=== PATIENT | female | born 1975 | race Two or more races ===

== ENCOUNTER 2020-10-20 15:02 | Emergency (ER) | payer MEDICAID, SELFPAY ==
--- NOTE | ~2020-10-20 | XR_ITS ---
EXAMINATION: XR CHEST CLINICAL INFORMATION: Chest pain COMPARISON: Previous chest x-ray March 2015 TECHNIQUE: Frontal view of the chest was obtained. FINDINGS: The cardiac and mediastinal contours are normal. There is a small 4 mm nodule in the right upper lobe that is stable The lungs are otherwise clear. There is no pleural effusion or pneumothorax. Bony structures are unremarkable. XR/XR chest 1V IMPRESSION: No evidence for acute disease in the chest.
[2020-10-20 15:13] VITALS: BP 126/78; PULSE 94; RESP 16; TEMP 36.5; O2SAT 100; BMI 25.7
--- NOTE | 2020-10-20 15:17 | ECG_ITS ---
Test Reason : CHEST PAIN Blood Pressure : / mmHG Vent. Rate : 097 BPM Atrial Rate : 097 BPM P-R Int : 136 ms QRS Dur : 074 ms QT Int : 368 ms P-R-T Axes : -01 023 063 degrees QTc Int : 467 ms Normal sinus rhythm Normal ECG When compared with ECG of 15-AUG-2018 10:51, No significant change was found Referred By: Generic ED Physician Electronically Signed By:Osmin Napoles
[2020-10-20 17:02] LABS: MANUAL DIFF FLAG NO
[2020-10-20 17:06] LABS: Basophils Percent Auto 0.4 % (0-2); Eosinophils Absolute Auto 0.3 X10*3/uL (0.0-0.4); Eosinophils Percent Auto 2.3 % (0-4); Hematocrit 34.7 % (37-47); Hemoglobin 11.2 g/dl (12.0-16.0); Imm Gran Abs Auto 0.05 X10*3/uL (0.00-0.03); Imm Gran Pct Auto 0.4 % (0.0-0.4); Lymphocytes Absolute Auto 3.3 X10*3/uL (1.2-4.9); Lymphocytes Percent Auto 29.5 % (20-40); Mean Corpuscular HGB Conc 32.3 g/dl (31.0-35.0); Mean Corpuscular Hemoglobin 26.4 pg (27.0-33.0); Mean Corpuscular Volume 81.6 fL (80-98); Monocytes Absolute Auto 0.7 X10*3/uL (0.1-1.2); Monocytes Percent Auto 5.8 % (2-11); Neutrophils Absolute Auto 6.9 X10*3/uL (2.0-8.3); Neutrophils Percent Auto 61.6 % (45-73); Platelet Count 406 X10*3/uL (160-400); Red Blood Count 4.25 X10*6/uL (4.20-5.50); Red Cell Distribution Width 12.8 % (11.0-16.0); White Blood Count 11.2 X10*3/uL (4.8-10.8)
[2020-10-20 17:36] LABS: Anion Gap 16 (12-20); Blood Urea Nitrogen 41 mg/dL (9-16); Calcium 10.5 mg/dL (8.4-10.2); Carbon Dioxide 25 mmol/L (22-29); Chloride 105 mmol/L (96-108); Estimated Glomerular Filt Rate > 60; Glucose Random 229 mg/dL (60-115); Potassium 5.6 mmol/L (3.3-5.1); Sodium 140 mmol/L (135-145)
[2020-10-20 17:38] LABS: Troponin-I High Sensitivity < 3.5 ng/L (<3.5-17.0)
--- NOTE | 2020-10-20 18:28 | ED.CHESTPAIN ---
HPI - Chest Pain General Chief Complaint: Chest Pain Stated Complaint: Chest Pain/Palpitations Time Seen by Provider: 10/20/20 18:11 Source: patient Mode of arrival: ambulatory Limitations: no limitations History of Present Illness HPI narrative: Patient presents to the ED for chest palpitations since last night. Patient states at times heart is beating fast and other times she feels her heart is beating off beat. Patient Denies chest pain. Denies any swelling of lower extremities, calf pain, coughing up blood, chest pain on inspiration, fever, or chills. Patient states vaccinated with COVID. Related Data Allergies Allergy/AdvReac Type Severity Reaction Status Date / Time No Known Allergies Allergy Mild NONE Verified 10/20/20 15:13 Review of Systems Review of Systems: Yes all other systems are reviewed and are negative Constitutional: Constitutional: Reports as per HPI and Reports no additional constitutional complaints Eyes: Eyes: Reports as per HPI and Reports no additional eye complaints ENT: Reports system reviewed and no additional complaints, except as documented and Reports as per HPI Cardiovascular: Cardiovascular: Reports as per HPI and Reports no additional cardiovascular complaints Comments: Palpitation Respiratory: Respiratory: Reports as per HPI and Reports no additional respiratory complaints Gastrointestinal: Gastrointestinal: Reports as per HPI and Reports no additional gastrointestinal complaints Genitourinary: Genitourinary: Reports no additional female genitourinary complaints and Reports as per HPI Musculoskeletal: Musculoskeletal: Reports no additional musculoskeletal complaints and Reports as per HPI Integumentary/Breasts: Skin/Breast: Reports system reviewed and no additional complaints, except as docu and Reports as per HPI Psychiatric: Psychiatric: Reports no additional psychiatric complaints and Reports as per HPI [facility] Past Medical History Medical History (Updated 10/21/20 @ 00:01 by Diane Landa) 23-polyvalent pneumococcal polysaccharide vaccine indication of diabetes in patient 6 to 64 years of age Asthma Social History Social History Advance Directives: No Advance Directives Information Provided: Yes Patient : No Physical Exam Vital Signs: Vital Signs: Last Vital Signs Temp 98.3 F 10/20/20 20:08 Pulse 93 10/20/20 20:08 Resp 13 10/20/20 20:08 BP 108/68 10/20/20 20:08 Pulse Ox 100 10/20/20 20:08 Body Mass Index 25.7 Const: General: cooperative, healthy appearing, comfortable, no acute distress, well developed, alert and awake Orientation/consciousness: patient oriented x3 HENMT: Head: Yes normal to inspection, Yes No palpable skull fracture present, Yes normocephalic, Yes atraumatic and No abrasion Eyes: General: appearance normal, both eyes and all related structures Neck: Neck: Yes normal visual inspection, Yes full ROM, Yes no lymphadenopathy, Yes no meningeal signs, Yes trachea midline, Yes supple and No tender Chest: Chest palpation & inspection: normal inspection of the chest and normal palpation of entire chest wall Resp: Effort & Inspection: normal respiratory effort and able to speak in complete sentences Cardio: Jugular venous distension: no JVD Heart sounds: S1 normal heart sound present and S2 normal heart sound present GI: Inspection: Yes normal to inspection and No abdominal wall ecchymosis Palpation (GI): Soft to palpation, not firm, nontender, no guarding and not rigid : General: No CVA tenderness and Yes no CVA tenderness Back/Spine/Pelvis: Back: no CVA tenderness, No CVA tenderness and No back tenderness Skin: General skin exam: no rashes or lesions noted Neuro: General: patient oriented x3, gait normal, no meningeal signs and CN's II-XI intact bilaterally Cranial nerves: Yes CN's II-XII intact bilaterally Extrem: Other: Lower extremities negative for swelling, pitting edema, or calf tenderness General: Yes normal to inspection and Yes full ROM Course Course Course Narrative: Patient have medical evaluation. Including EKG Reevaluation(s) Reevaluation #1: EKG negative for STEMI. D-dimer came back negative. Perc score 0. Chest x-ray negative for pneumonia. Patient's COVID swab is negative. Troponin negative after 1 day palpitation. Thyroid levels are normal. Patient sleeping comfortably in bed. Patient informed to follow-up with PCP. Potassium 5.6 most likely lab error kidney functions normal, but will give Kayexalate. Patient will follow-up with the PCP. Time: 22:00 MDM - Chest Pain Lab Data Result diagrams: 10/20/20 16:56 10/20/20 16:56 Labs: Lab Results 10/20/20 10/20/20 10/20/20 Range/Units 16:56 16:56 16:56 WBC 11.2 H (4.8-10.8) X10*3/uL RBC 4.25 (4.20-5.50) X10*6/uL Hgb 11.2 L (12.0-16.0) g/dl Hct 34.7 L (37-47) % MCV 81.6 (80-98) fL MCH 26.4 L (27.0-33.0) pg MCHC 32.3 (31.0-35.0) g/dl RDW 12.8 (11.0-16.0) % Plt Count 406 H (160-400) X10*3/uL MPV 10.0 (9.4-12.3) fL Immature Gran % (Auto) 0.4 (0.0-0.4) % Neut % (Auto) 61.6 (45-73) % Lymph % (Auto) 29.5 (20-40) % [place] % (Auto) 5.8 (2-11) % Eos % (Auto) 2.3 (0-4) % Baso % (Auto) 0.4 (0-2) % Lymph # (Auto) 3.3 (1.2-4.9) X10*3/uL [place] # (Auto) 0.7 (0.1-1.2) X10*3/uL Eos # (Auto) 0.3 (0.0-0.4) X10*3/uL Baso # (Auto) 0.0 (0.0-0.2) X10*3/uL Abs Immat Gran (auto) 0.05 H (0.00-0.03) X10*3/uL Absolute Neuts (auto) 6.9 (2.0-8.3) X10*3/uL Absolute Nucleated RBC 0.000 (0.0-0.012) X10*3/uL Nucleated RBC % (auto) 0.0 (0.0-0.2) /100WBC PT (9.9-13.0) SEC INR (0.9-1.1) APTT (24.1-38.0) SEC D-Dimer NG/ML Sodium 140 (135-145) mmol/L Potassium 5.6 H (3.3-5.1) mmol/L Chloride 105 (96-108) mmol/L Carbon Dioxide 25 (22-29) mmol/L Anion Gap 16 (12-20) BUN 41 H (9-16) mg/dL Creatinine 0.99 (0.5-1.4) mg/dL Estim Creat Clear Calc 68.0 Estimated GFR > 60 Random Glucose 229 H (60-115) mg/dL Calcium 10.5 H (8.4-10.2) mg/dL Troponin I High Sens < 3.5 (<3.5-17.0) ng/L TSH 0.85 (0.32-4.0) uIU/mL COVID-19 (DOV) (Negative) COVID-19 Clin Com 10/20/20 10/20/20 Range/Units 18:29 18:29 WBC (4.8-10.8) X10*3/uL RBC (4.20-5.50) X10*6/uL Hgb (12.0-16.0) g/dl Hct (37-47) % MCV (80-98) fL MCH (27.0-33.0) pg MCHC (31.0-35.0) g/dl RDW (11.0-16.0) % Plt Count (160-400) X10*3/uL MPV (9.4-12.3) fL Immature Gran % (Auto) (0.0-0.4) % Neut % (Auto) (45-73) % Lymph % (Auto) (20-40) % [place] % (Auto) (2-11) % Eos % (Auto) (0-4) % Baso % (Auto) (0-2) % Lymph # (Auto) (1.2-4.9) X10*3/uL [place] # (Auto) (0.1-1.2) X10*3/uL Eos # (Auto) (0.0-0.4) X10*3/uL Baso # (Auto) (0.0-0.2) X10*3/uL Abs Immat Gran (auto) (0.00-0.03) X10*3/uL Absolute Neuts (auto) (2.0-8.3) X10*3/uL Absolute Nucleated RBC (0.0-0.012) X10*3/uL Nucleated RBC % (auto) (0.0-0.2) /100WBC PT 10.9 (9.9-13.0) SEC INR 1.0 (0.9-1.1) APTT 39.9 H (24.1-38.0) SEC D-Dimer < 200 NG/ML Sodium (135-145) mmol/L Potassium (3.3-5.1) mmol/L Chloride (96-108) mmol/L Carbon Dioxide (22-29) mmol/L Anion Gap (12-20) BUN (9-16) mg/dL Creatinine (0.5-1.4) mg/dL Estim Creat Clear Calc Estimated GFR Random Glucose (60-115) mg/dL Calcium (8.4-10.2) mg/dL Troponin I High Sens (<3.5-17.0) ng/L TSH (0.32-4.0) uIU/mL COVID-19 (DOV) Negative (Negative) COVID-19 Clin Com See Note ECG Data ECG #1: Interpretation: Normal sinus rhythm. Ventricular rate 97. Pr interval 136. QRS 74. QTC 467. Negative STEMI Discharge Plan Discharge Clinical Impression: Palpitations Patient Disposition: Home, Self-Care Instructions: Heart Palpitations (ED) Additional Instructions: New EKG and blood work came back negative for heart attack. Your COVID swab came back negative. Her D-dimer came back negative for risk of blood clot. Your thyroid level came back normal. Please follow-up with your PCP. Her blood count was normal Referrals: [facility] [Primary Care Provider] - 2 days (Palpitations) Stand Alone Forms: Work/School Release Interventions: ED Discharge Assessment Last Done: 10/20/20 23:25 Discharge Date/Time: 10/20/20 23:44 Print Language: Persian
[2020-10-20 18:43] LABS: Prothrombin Time 10.9 SEC (9.9-13.0)
[2020-10-20 18:46] LABS: Partial Thromboplastin Time 39.9 SEC (24.1-38.0)
[2020-10-20 18:55] LABS: COVID-19 Test Negative (Negative); IDNOW Serial# 9DD0AD1C
[2020-10-20 18:58] LABS: TSH reflex Free T4 0.85 uIU/mL (0.32-4.0)
[2020-10-20 19:16] LABS: D Dimer < 200 NG/ML
[2020-10-20 20:08] VITALS: BP 108/68; PULSE 93; RESP 13; TEMP 36.8; O2SAT 100
[2020-10-20] MEDS: Sodium Polystyrene Sulfon/Sorb 15 GM/60 ML ORAL.SUSP 30 GM PO (23:15)
== END 2020-10-20 23:44 | disposition home or self-care (01) ==
PROVIDERS: Physician Assistant; Emergency Provider Emergency Medicine Emergency Medical Services
DX: R00.2 Palpitations (principal); Z20.822 Contact with and (suspected) exposure to COVID-19; J45.909 Unspecified asthma, uncomplicated
CPT/HCPCS: 36415; 71045; 80048; 84443; 84484; 85025; 85379; 85610; 85730; 87635; 93005; 99284; 99285

== ENCOUNTER 2021-08-07 21:37 | Inpatient (IN) | payer MEDICAID, SELFPAY ==
--- NOTE | ~2021-08-07 | CT_ITS ---
EXAMINATION: CT ABDOMEN AND PELVIS WITHOUT CONTRAST CLINICAL INFORMATION: Pyelonephritis/CVA tenderness COMPARISON: Renal ultrasound 08/08/[address] abdomen pelvis 01/10/2019 TECHNIQUE: Multidetector volumetric imaging was performed from the superior aspect of the liver through the pubic symphysis. Sagittal and coronal reformatted images were obtained on the technologist's workstation. This CT examination was performed using dose optimization techniques as appropriate, variously including the following: *Automated exposure control *Adjustment of mA and/or kV according to patient size (this includes techniques or standardized protocols for targeted exams where dose is matched to indication/reason for exam; i.e. extremities or head) *Use of iterative reconstruction technique DLP: 460 mGy-cm FINDINGS: LUNG BASES: Bilateral groundglass opacities are seen at the lung bases along with small bilateral pleural effusions. These are completely new findings when compared to the 01/10/2019 study LIVER, GALLBLADDER, AND BILIARY TREE: The liver is normal in size, shape, and attenuation. No focal hepatic lesion or biliary ductal dilatation is present. The gallbladder is unremarkable with no evidence of radiopaque gallstones, gallbladder wall thickening, or obvious pericholecystic inflammatory changes. PANCREAS: Unremarkable. SPLEEN: Unremarkable. A punctate splenic calcified granuloma is present. ADRENAL GLANDS: Unremarkable. KIDNEYS AND URETERS: Evaluation of the kidneys is limited without IV contrast. Especially, when looking for signs of pyelonephritis which may be a striated nephrogram as no nephrograms are appreciated on this study without contrast. The kidneys, however, are normal in size, shape, and attenuation. Both kidneys, however are slightly smaller than in 2009. For example, on sagittal imaging the left kidney measured 11.6 cm and currently measures 10.3 cm. The right kidney previously measured 13.5 cm in length and on the current study measures 12.9 cm. There is nonspecific stranding is present around both kidneys which is new when compared to the prior study. There is some minimal fullness of the collecting system on the left similar to prior. No gross hydronephrosis or hydroureter. In the right kidney there are 4 subtle punctate hyperattenuating foci which could conceivably represent calculi. BLADDER: Distended with a slightly thickened wall. GASTROINTESTINAL TRACT: The small and large bowel are unremarkable. The appendix is not identified with certainty but there is no evidence of appendicitis. ABDOMINAL WALL: No significant hernia is appreciated. LYMPH NODES: There are enlarged retroperitoneal lymph nodes present, significantly increased in size since the prior study, for example, a left para-aortic node measures 1.7 x 1.7 x 2.9 cm where as previously this measured 0.8 x 0.6 x 1.0 cm. Other retroperitoneal lymph nodes have behaved in a similar manner. VASCULAR: Unremarkable. PELVIC VISCERA: Unremarkable. OSSEOUS STRUCTURES: Unremarkable. CT/CT abdomen pelvis wo con IMPRESSION: Suboptimal evaluation of the kidneys secondary to lack of IV contrast. There is perirenal stranding present bilaterally. Both kidneys are slightly smaller when compared to the 2019 study. Mild fullness in the right collecting system along with the above-mentioned findings could be secondary to pyelonephritis in the correct clinical setting. The vague punctate densities seen in the right kidney are of uncertain significance. Increasing size of retroperitoneal lymph nodes may be reactive, but they should be followed after treatment. If another CT scan is going to be performed, I would recommend this with IV contrast. This critical result was discussed with Dr. Buchanan at 4:00 PM on the day of the exam and it was ascertained that the content and urgency of the report was understood at the time of direct communication. Fleischner guidelines were followed.
--- NOTE | ~2021-08-07 | US_ITS ---
EXAMINATION: US RETROPERITONEAL LIMITED (RENAL ONLY) CLINICAL INFORMATION: RENEE, question pyelonephritis. COMPARISON: CT abdomen and pelvis 01/10/2019. TECHNIQUE: Retroperitoneal ultrasound imaging was performed. FINDINGS: RIGHT KIDNEY: 13.3 x 6.0 x 5.9 cm (SAG x AP x TRV). The kidney is normal in size, contour, and echogenicity. Renal cortical thickness is normal. No renal calculi or focal parenchymal lesions. There is echogenic debris within the dilated right kidney pelvis. LEFT KIDNEY: 10.2 x 5.4 x 5.6 cm cm (SAG x AP x TRV). The kidney is normal in size, contour, and echogenicity. Renal cortical thickness is normal. There are multiple echogenic foci without shadowing. No definite echogenic shadowing stones or hydronephrosis seen. US/US renal BI IMPRESSION: Mild right hydronephrosis with echogenic debris within raises the possibility of pyelonephritis. No echogenic stones seen in either kidney. Few echogenic foci seen in the left kidney.
[2021-08-07 21:47] VITALS: BP 102/84; PULSE 111; O2SAT 98; BMI 25.7
[2021-08-07 21:54] VITALS: BP 87/53; PULSE 104; RESP 16; TEMP 37.4; O2SAT 99
--- NOTE | 2021-08-07 22:02 | ED.GENADULT ---
HPI - General Adult General Chief complaint: Abdominal Pain Stated complaint: stomach pain Time Seen by Provider: 08/07/21 21:51 Source: patient Mode of arrival: ambulatory Limitations: no limitations History of Present Illness HPI narrative: Patient comes to the emergency room complaining of weakness, diffuse abdominal pain, nausea vomiting, hyperglycemia. Patient states that she has been vomiting quite a bit over the last 2 days. Patient tries to drink fluids but she vomits immediately. Patient feeling nauseous all the time, 1 episode of diarrhea. Patient denies fever, burning of chills, diffuse body aches. Patient states that because she has been vomiting so much, she has not been checking her sugars are with giving herself insulin Related Data Allergies Allergy/AdvReac Type Severity Reaction Status Date / Time No Known Allergies Allergy Mild NONE Verified 10/20/20 15:13 Review of Systems Review of Systems: Constitutional : No Weight loss, No Fever, No Chills, complaining of fatigue and generalized malaise, chills and body aches ENT/Mouth : No Hearing loss, No Ear Pain, No Nasal Congestion, No Sinus Pain, No Hoarseness, No sore throat, No Rhinorrhea, No Swallowing Difficulty Eyes: No Eye Pain, No Swelling, No Redness, No Foreign Body, No Discharge, No Vision Changes Cardiovascular : No Chest Pain, No SOB, No Dyspnea on Exertion, No Orthopnea, No Edema, No Palpitations Respiratory : No Cough, No Sputum, No Wheezing, No Smoke Exposure, No Dyspnea Gastrointestinal : Complaining of nausea, copious vomiting, 1 episode of diarrhea, No Constipation, No abdominal Pain, No Hematochezia, No Melena Genitourinary : no irregular bleeding, No Dysuria, No Urinary Frequency, No Hematuria, No Urinary Incontinence, No Urgency, No Flank Pain, No Urinary Flow Changes, No Hesitancy Musculoskeletal : No joint pain, complaining of diffuse Myalgias, No Joint Swelling Skin : No Skin Lesions, No rash Neuro : No Weakness, No Numbness, No Paresthesias, No Loss of Consciousness, No Dizziness, No Headache Psych : No Anxiety/Panic, No Depression, No SI/HI/AH/VH, No Social Issues, Heme/Lymph: No Bruising, No Bleeding,No Lymphadenopathy Endocrine : No Polyuria, No Polydipsia, No Temperature Intolerance PMFSH Past Medical History Medical History 23-polyvalent pneumococcal polysaccharide vaccine indication of diabetes in patient 6 to 64 years of age Asthma Social History Social History Smoked in Last 30 Days: No Use of substances other than those prescribed or required for medical reasons: No Advance Directives: No Advance Directives Information Provided: Yes Patient : No Physical Exam ED Vital Signs: Vital Signs - 24 hr 08/07/21 21:54 08/07/21 22:27 08/07/21 23:03 Temperature 99.3 F 99 F 98.7 F Pulse Rate 104 H 100 Respiratory Rate 16 12 Blood Pressure 87/53 L 103/61 Pulse Oximetry 99 08/07/21 23:11 Temperature 98.8 F Pulse Rate 100 Respiratory Rate 16 Blood Pressure 161/81 H Pulse Oximetry 100 BMI result Body Mass Index 25.7 Const Other: Appearance: Alert. Oriented X3. No acute distress. Weak appearing Eyes: Pupils equal, round and reactive to light. ENT: Pharynx normal. Neck: Normal inspection. Neck supple. No lymph nodes noted. No crepitus CVS: Normal heart rate and rhythm. Pulses normal. Normal S1 and S2 Respiratory: No respiratory distress. Breath sounds normal. No Wheezing. No rales Abdomen: Soft mild pain diffusely, No rigidity. No distention. Back: Positive CVA tenderness bilaterally. Patient did have pain in back middle back and lower back as well Skin: Skin warm and dry. Normal skin color. Normal skin turgor. Extremities: No lower extremity edema. No Lacerations. No Rash Neuro: Oriented X 3. No motor deficit. No sensory deficit. Moving all extremities. No slurred speech. CN 2 through 12 grossly intact Psych: calm, cooperative, normal affect Course Course Course Narrative: Patient was given IV fluids, levofloxacin, patient being admitted for UTI sepsis/pyelonephritis. Patient's blood pressure improved with 2 L of IV fluids. Now, blood pressure is 109/69. I discussed the patient Dr. Chan, patient likely has pyelonephritis, hyperglycemia. Corrected sodium is 133 Medical Decision Making Lab Data Result diagrams: 08/07/21 22:00 08/07/21 22:00 Labs: Lab Results 08/07/21 08/07/21 08/07/21 Range/Units 22:00 22:00 22:00 WBC 18.9 H (4.8-10.8) X10*3/uL RBC 3.98 L (4.20-5.50) X10*6/uL Hgb 9.9 L (12.0-16.0) g/dl Hct 30.5 L (37.0-47.0) % MCV 76.6 L (80.0-98.0) fL MCH 24.9 L (27.0-33.0) pg MCHC 32.5 (31.0-35.0) g/dl RDW 13.0 (11.0-16.0) % Plt Count 322 (160-400) X10*3/uL MPV 10.4 (9.4-12.3) fL Immature Gran % (Auto) 1.2 H (0.0-0.4) % Neut % (Auto) 78.1 H (45-73) % Lymph % (Auto) 8.7 L (20-40) % [place] % (Auto) 11.3 H (2-11) % Eos % (Auto) 0.5 (0-4) % Baso % (Auto) 0.2 (0-2) % Lymph # (Auto) 1.6 (1.2-4.9) X10*3/uL [place] # (Auto) 2.1 H (0.1-1.2) X10*3/uL Eos # (Auto) 0.1 (0.0-0.4) X10*3/uL Baso # (Auto) 0.0 (0.0-0.2) X10*3/uL Abs Immat Gran (auto) 0.23 H (0.00-0.03) X10*3/uL Absolute Neuts (auto) 14.7 H (2.0-8.3) x10*3/uL Absolute Nucleated RBC 0.000 (0.0-0.012) X10*3/uL Nucleated RBC % (auto) 0.0 (0.0-0.2) /100WBC Smear Tech's Comments VERIFIED Sodium 127 L (135-145) mmol/L Potassium 5.0 (3.3-5.1) mmol/L Chloride 92 L (96-108) mmol/L Carbon Dioxide 17 L (22-29) mmol/L Anion Gap 23 H (12-20) BUN 36 H (9-16) mg/dL Creatinine 1.96 H (0.5-1.4) mg/dL Estim Creat Clear Calc 33.9 Estimated GFR 27 POC Glucose (60-115) mg/dL Random Glucose 457 H* (60-115) mg/dL Calcium 8.9 D (8.4-10.2) mg/dL Total Bilirubin 0.5 (0.0-1.0) mg/dL AST 32 H (5-31) U/L ALT 13 (0-31) U/L Alkaline Phosphatase 123 H (39-117) U/L Total Protein 7.7 (6.5-8.0) g/dL Albumin 3.4 L (3.5-5.0) g/dL Lipase 12 (8-78) U/L Urine Color Urine Appearance Urine pH (5.0-8.0) Ur Specific [place] (1.005-1.025) Urine Protein (NEG-TRACE) MG/DL Urine Glucose (UA) (NEG) MG/DL Urine Ketones (NEG) MG/DL Urine Blood (NEG) Urine Nitrite (NEG) Ur Leukocyte Esterase (NEG) Urine RBC (0) /HPF Urine WBC (0-4) /HPF Ur Squamous Epith Cells /LPF Urine Bacteria /LPF Granular Casts /LPF Urine Mucus /LPF COVID-19 (DOV) (Negative) COVID-19 Clin Com Influenza Type A (SUJIT) Negative (Negative) Influenza Type B (SUJIT) Negative (Negative) Influenza A & B Note See Note 08/07/21 08/07/21 08/07/21 Range/Units 22:00 22:09 22:56 WBC (4.8-10.8) X10*3/uL RBC (4.20-5.50) X10*6/uL Hgb (12.0-16.0) g/dl Hct (37.0-47.0) % MCV (80.0-98.0) fL MCH (27.0-33.0) pg MCHC (31.0-35.0) g/dl RDW (11.0-16.0) % Plt Count (160-400) X10*3/uL MPV (9.4-12.3) fL Immature Gran % (Auto) (0.0-0.4) % Neut % (Auto) (45-73) % Lymph % (Auto) (20-40) % [place] % (Auto) (2-11) % Eos % (Auto) (0-4) % Baso % (Auto) (0-2) % Lymph # (Auto) (1.2-4.9) X10*3/uL [place] # (Auto) (0.1-1.2) X10*3/uL Eos # (Auto) (0.0-0.4) X10*3/uL Baso # (Auto) (0.0-0.2) X10*3/uL Abs Immat Gran (auto) (0.00-0.03) X10*3/uL Absolute Neuts (auto) (2.0-8.3) x10*3/uL Absolute Nucleated RBC (0.0-0.012) X10*3/uL Nucleated RBC % (auto) (0.0-0.2) /100WBC Smear Tech's Comments Sodium (135-145) mmol/L Potassium (3.3-5.1) mmol/L Chloride (96-108) mmol/L Carbon Dioxide (22-29) mmol/L Anion Gap (12-20) BUN (9-16) mg/dL Creatinine (0.5-1.4) mg/dL Estim Creat Clear Calc Estimated GFR POC Glucose 414 H* (60-115) mg/dL Random Glucose (60-115) mg/dL Calcium (8.4-10.2) mg/dL Total Bilirubin (0.0-1.0) mg/dL AST (5-31) U/L ALT (0-31) U/L Alkaline Phosphatase (39-117) U/L Total Protein (6.5-8.0) g/dL Albumin (3.5-5.0) g/dL Lipase (8-78) U/L Urine Color YELLOW Urine Appearance CLOUDY Urine pH 6.0 (5.0-8.0) Ur Specific [place] 1.025 (1.005-1.025) Urine Protein 2+ H (NEG-TRACE) MG/DL Urine Glucose (UA) >=1000 H (NEG) MG/DL Urine Ketones 40 (NEG) MG/DL Urine Blood 3+ H (NEG) Urine Nitrite NEG (NEG) Ur Leukocyte Esterase 1+ H (NEG) Urine RBC 5-9 H (0) /HPF Urine WBC 30-49 H (0-4) /HPF Ur Squamous Epith Cells 1+ /LPF Urine Bacteria 4+ /LPF Granular Casts 5-9 /LPF Urine Mucus 2+ /LPF COVID-19 (DOV) Negative (Negative) COVID-19 Clin Com See Note Influenza Type A (SUJIT) (Negative) Influenza Type B (SUJIT) (Negative) Influenza A & B Note 08/07/21 Range/Units 22:59 WBC (4.8-10.8) X10*3/uL RBC (4.20-5.50) X10*6/uL Hgb (12.0-16.0) g/dl Hct (37.0-47.0) % MCV (80.0-98.0) fL MCH (27.0-33.0) pg MCHC (31.0-35.0) g/dl RDW (11.0-16.0) % Plt Count (160-400) X10*3/uL MPV (9.4-12.3) fL Immature Gran % (Auto) (0.0-0.4) % Neut % (Auto) (45-73) % Lymph % (Auto) (20-40) % [place] % (Auto) (2-11) % Eos % (Auto) (0-4) % Baso % (Auto) (0-2) % Lymph # (Auto) (1.2-4.9) X10*3/uL [place] # (Auto) (0.1-1.2) X10*3/uL Eos # (Auto) (0.0-0.4) X10*3/uL Baso # (Auto) (0.0-0.2) X10*3/uL Abs Immat Gran (auto) (0.00-0.03) X10*3/uL Absolute Neuts (auto) (2.0-8.3) x10*3/uL Absolute Nucleated RBC (0.0-0.012) X10*3/uL Nucleated RBC % (auto) (0.0-0.2) /100WBC Smear Tech's Comments Sodium (135-145) mmol/L Potassium (3.3-5.1) mmol/L Chloride (96-108) mmol/L Carbon Dioxide (22-29) mmol/L Anion Gap (12-20) BUN (9-16) mg/dL Creatinine (0.5-1.4) mg/dL Estim Creat Clear Calc Estimated GFR POC Glucose 320 H (60-115) mg/dL Random Glucose (60-115) mg/dL Calcium (8.4-10.2) mg/dL Total Bilirubin (0.0-1.0) mg/dL AST (5-31) U/L ALT (0-31) U/L Alkaline Phosphatase (39-117) U/L Total Protein (6.5-8.0) g/dL Albumin (3.5-5.0) g/dL Lipase (8-78) U/L Urine Color Urine Appearance Urine pH (5.0-8.0) Ur Specific [place] (1.005-1.025) Urine Protein (NEG-TRACE) MG/DL Urine Glucose (UA) (NEG) MG/DL Urine Ketones (NEG) MG/DL Urine Blood (NEG) Urine Nitrite (NEG) Ur Leukocyte Esterase (NEG) Urine RBC (0) /HPF Urine WBC (0-4) /HPF Ur Squamous Epith Cells /LPF Urine Bacteria /LPF Granular Casts /LPF Urine Mucus /LPF COVID-19 (DOV) (Negative) COVID-19 Clin Com Influenza Type A (SUJIT) (Negative) Influenza Type B (SUJIT) (Negative) Influenza A & B Note Critical Care Time Critical Care Time Critical Care Time: Yes Total Critical Care Time: 45 Attestation: I have personally provided critical care time. Time includes review of lab data, radiology results, discussion with consultants, and monitoring for potential decompensation. Intervention performed as documented. Discharge Plan Discharge Clinical Impression: Nausea & vomiting, Acute hyperglycemia, Pyelonephritis Patient Disposition: Admitted As Inpatient
[2021-08-07] MEDS: 0.9 % Sodium Chloride 2,000 ML 999 ML IVCONT (22:05)
[2021-08-07 22:13] LABS: Glucose, Whole Blood 414 mg/dL (60-115)
[2021-08-07 22:15] LABS: Basophils Percent Auto 0.2 % (0-2); Eosinophils Absolute Auto 0.1 X10*3/uL (0.0-0.4); Eosinophils Percent Auto 0.5 % (0-4); Hematocrit 30.5 % (37.0-47.0); Hemoglobin 9.9 g/dl (12.0-16.0); Imm Gran Abs Auto 0.23 X10*3/uL (0.00-0.03); Imm Gran Pct Auto 1.2 % (0.0-0.4); Lymphocytes Absolute Auto 1.6 X10*3/uL (1.2-4.9); Lymphocytes Percent Auto 8.7 % (20-40); MANUAL DIFF FLAG SCAN; Mean Corpuscular HGB Conc 32.5 g/dl (31.0-35.0); Mean Corpuscular Hemoglobin 24.9 pg (27.0-33.0); Mean Corpuscular Volume 76.6 fL (80.0-98.0); Mean Platelet Volume 10.4 fL (9.4-12.3); Monocytes Absolute Auto 2.1 X10*3/uL (0.1-1.2); Monocytes Percent Auto 11.3 % (2-11); Neutrophils Absolute Auto 14.7 x10*3/uL (2.0-8.3); Neutrophils Percent Auto 78.1 % (45-73); Platelet Count 322 X10*3/uL (160-400); Red Blood Count 3.98 X10*6/uL (4.20-5.50); SCAN SMEAR FLAG 1; White Blood Count 18.9 X10*3/uL (4.8-10.8)
[2021-08-07] MEDS: ondansetron HCL 4 MG/2 ML VIAL IVPUSH (22:15)
[2021-08-07] MEDS: Acetaminophen 325 MG TABLET 975 MG PO (22:15)
[2021-08-07 22:20] LABS: SLIDE REVIEW VERIFIED
[2021-08-07] MEDS: Insulin Regular, Human 100 UNIT/ML 3 ML VIAL 10 UNIT IVPUSH (22:24)
[2021-08-07 22:27] VITALS: BP 103/61; PULSE 100; RESP 12; TEMP 37.2
[2021-08-07 22:31] LABS: COVID-19 Test Negative (Negative); IDNOW Serial# 16C4AD1C; Influenza A Negative (Negative); Influenza B2 Negative (Negative)
--- NOTE | 2021-08-07 22:33 | PC.NURSE ---
pt BS [id number]
[2021-08-07 22:34] LABS: Alanine Aminotransferase 13 U/L (0-31); Albumin Level 3.4 g/dL (3.5-5.0); Alkaline Phosphatase 123 U/L (39-117); Anion Gap 23 (12-20); Aspartate Amino Transferase 32 U/L (5-31); Bilirubin Total 0.5 mg/dL (0.0-1.0); Blood Urea Nitrogen 36 mg/dL (9-16); Calcium 8.9 mg/dL (8.4-10.2); Carbon Dioxide 17 mmol/L (22-29); Chloride 92 mmol/L (96-108); Creatinine Clr Calc Pharmacy 33.9; Estimated Glomerular Filt Rate 27; Glucose Random 457 mg/dL (60-115); Lipase 12 U/L (8-78); Sodium 127 mmol/L (135-145); Total Protein 7.7 g/dL (6.5-8.0)
[2021-08-07 23:03] VITALS: TEMP 37.1
[2021-08-07 23:03] LABS: Glucose, Whole Blood 320 mg/dL (60-115)
[2021-08-07 23:03] LABS: Appearance Urine CLOUDY; Color Urine YELLOW; Glucose Urine UA >=1000 MG/DL (NEG); Leukocyte Esterase Urine 1+ (NEG); Nitrite Urine NEG (NEG); Specific Gravity - Urine 1.025 (1.005-1.025); UACC Culture Trigger YES; Urine Blood 3+ (NEG); Urine Ketones 40 MG/DL (NEG); Urine Protein 2+ MG/DL (NEG-TRACE)
--- NOTE | 2021-08-07 23:04 | PC.NURSE ---
pt repeat BS [id number]
[2021-08-07 23:11] VITALS: BP 161/81; PULSE 100; RESP 16; TEMP 37.1; O2SAT 100
[2021-08-07 23:16] LABS: WBC Urine 30-49 /HPF (0-4)
[2021-08-07 23:17] LABS: Bacteria Urine 4+ /LPF; Mucus Urine 2+ /LPF; Squamous Epithelial Cell Urine 1+ /LPF
--- NOTE | 2021-08-07 23:31 | PM.IMHP ---
History of Present Illness Date of Service: 08/07/21 Chief Complaint: nausea/vomiting / abdominal pain 46-year-old female with a past medical history of diabetes presented to the hospital with a chief complaint of nausea /vomiting /abdominal pain. patient reports that since asked that she has been having nausea vomiting and abdominal pain; had multiple episodes of vomiting; had decreased oral intake. Also has not been taking her insulin. Abdominal pain is located in the bilateral lower quadrants; no diarrhea reported. Denies any blood in the vomitus. Denies any urinary frequency urgency or dysuria. Mention she feels generally weak. Denies any chest pain or palpitations. Denies any fever chills cough. Review of all other systems is negative except mentioned above ER course: Per ER team patient noted to have abnormal urinalysis consistent with UTI, also noted to have hyperglycemia - given regular insulin IV push and IV fluids. On labs noted to have renal insufficiency with creatinine of 1.9-presumed to be prerenal. Admitted to the hospital for further management PMFSH Medical History 23-polyvalent pneumococcal polysaccharide vaccine indication of diabetes in patient 6 to 64 years of age Asthma Social History Smoked in Last 30 Days: No Use of substances other than those prescribed or required for medical reasons: No Advance Directives: No Advance Directives Information Provided: Yes Patient : No Meds Allergies Allergy/AdvReac Type Severity Reaction Status Date / Time No Known Allergies Allergy Mild NONE Verified 10/20/20 15:13 Active Medications: Current Medications Sodium Chloride (Ns) 2,000 mls @ 999 mls/hr IVCONT .Q2H1M ONE Stop: 08/07/21 23:59 Last Admin: 08/07/21 22:05 Dose: 999 mls/hr Documented by: Levofloxacin (Levaquin) 500 mg in 100 mls @ 100 mls/hr IV ONCE ONE Stop: 08/08/21 00:17 Sodium Chloride (Ns) 1,000 mls @ 999 mls/hr IVCONT .Q1H1M ONE Stop: 08/08/21 00:26 Home Medications Medication Instructions Recorded Confirmed Last Taken Type Lantus U-100 Insulin 08/08/21 08/04/21 History 50 Physical Exam Vital Signs and Narrative: Vital Signs: Last Vital Signs Temp 98.8 F 05/22/22 23:11 Pulse 100 08/07/21 23:11 Resp 16 08/07/21 23:11 BP 161/81 H 08/07/21 23:11 Pulse Ox 100 08/07/21 23:11 BMI result Body Mass Index 25.7 Gen: Appears be in no acute distress HEENT: NCAT, Moist mucosa. Pulmonary: Vesicular breath sounds, fair air entry CVS: Normal S1-S2 Abdomen: BS+, Soft, Mildly tender in the bilateral lower quadrants; right-sided CVA tenderness positive. Extremities: Warm well perfused Neuro: Alert and awake. Results Labs CBC and Chem 7: 08/07/21 22:00 08/07/21 22:00 Labs: Laboratory Results - last 24 hr 08/07/21 08/07/21 08/07/21 22:00 22:00 22:00 MCV 76.6 L MCH 24.9 L MCHC 32.5 RDW 13.0 Plt Count 322 MPV 10.4 Immature Gran % (Auto) 1.2 H Neut % (Auto) 78.1 H Lymph % (Auto) 8.7 L [place] % (Auto) 11.3 H Eos % (Auto) 0.5 Baso % (Auto) 0.2 Lymph # (Auto) 1.6 [place] # (Auto) 2.1 H Eos # (Auto) 0.1 Baso # (Auto) 0.0 Abs Immat Gran (auto) 0.23 H Absolute Neuts (auto) 14.7 H Absolute Nucleated RBC 0.000 Nucleated RBC % (auto) 0.0 Smear Tech's Comments VERIFIED Anion Gap 23 H Estim Creat Clear Calc 33.9 Estimated GFR 27 POC Glucose Random Glucose 457 H* Calcium 8.9 D Total Bilirubin 0.5 AST 32 H ALT 13 Alkaline Phosphatase 123 H Total Protein 7.7 Albumin 3.4 L Lipase 12 Urine Color Urine Appearance Urine pH Ur Specific [place] Urine Protein Urine Glucose (UA) Urine Ketones Urine Blood Urine Nitrite Ur Leukocyte Esterase Urine RBC Urine WBC Ur Squamous Epith Cells Urine Bacteria Granular Casts Urine Mucus COVID-19 (DOV) COVID-19 Clin Com Influenza Type A (SUJIT) Negative Influenza Type B (SUJIT) Negative Influenza A & B Note See Note 08/07/21 08/07/21 08/07/21 22:00 22:09 22:56 MCV MCH MCHC RDW Plt Count MPV Immature Gran % (Auto) Neut % (Auto) Lymph % (Auto) [place] % (Auto) Eos % (Auto) Baso % (Auto) Lymph # (Auto) [place] # (Auto) Eos # (Auto) Baso # (Auto) Abs Immat Gran (auto) Absolute Neuts (auto) Absolute Nucleated RBC Nucleated RBC % (auto) Smear Tech's Comments Anion Gap Estim Creat Clear Calc Estimated GFR POC Glucose 414 H* Random Glucose Calcium Total Bilirubin AST ALT Alkaline Phosphatase Total Protein Albumin Lipase Urine Color YELLOW Urine Appearance CLOUDY Urine pH 6.0 Ur Specific [place] 1.025 Urine Protein 2+ H Urine Glucose (UA) >=1000 H Urine Ketones 40 Urine Blood 3+ H Urine Nitrite NEG Ur Leukocyte Esterase 1+ H Urine RBC 5-9 H Urine WBC 30-49 H Ur Squamous Epith Cells 1+ Urine Bacteria 4+ Granular Casts 5-9 Urine Mucus 2+ COVID-19 (DOV) Negative COVID-19 Clin Com See Note Influenza Type A (SUJIT) Influenza Type B (SUJIT) Influenza A & B Note 08/07/21 22:59 MCV MCH MCHC RDW Plt Count MPV Immature Gran % (Auto) Neut % (Auto) Lymph % (Auto) [place] % (Auto) Eos % (Auto) Baso % (Auto) Lymph # (Auto) [place] # (Auto) Eos # (Auto) Baso # (Auto) Abs Immat Gran (auto) Absolute Neuts (auto) Absolute Nucleated RBC Nucleated RBC % (auto) Smear Tech's Comments Anion Gap Estim Creat Clear Calc Estimated GFR POC Glucose 320 H Random Glucose Calcium Total Bilirubin AST ALT Alkaline Phosphatase Total Protein Albumin Lipase Urine Color Urine Appearance Urine pH Ur Specific [place] Urine Protein Urine Glucose (UA) Urine Ketones Urine Blood Urine Nitrite Ur Leukocyte Esterase Urine RBC Urine WBC Ur Squamous Epith Cells Urine Bacteria Granular Casts Urine Mucus COVID-19 (DOV) COVID-19 Clin Com Influenza Type A (SUJIT) Influenza Type B (SUJIT) Influenza A & B Note Assessment and Plan (1) Nausea & vomiting: Status: Acute (2) Acute hyperglycemia: Status: Acute (3) UTI (urinary tract infection): Status: Acute Plan 46-year-old female with a past medical history of diabetes presented to the hospital with a chief complaint of nausea /vomiting /abdominal pain. noted to have UTI. Admitted for further management. UTI: Continue ceftriaxone Follow-up cultures Concern for pyelonephritis-will obtain renal ultrasound nausea/vomiting /abdominal pain: Likely in the setting of possible pyelonephritis. Supportive care. Zofran p.r.n.. RENEE: Likely prerenal. Gentle IV fluids. Avoid nephrotoxins. Diabetes/ hyperglycemia: Not in DKA. Noted pseudo hyponatremia in setting of hyperglycemia. Patient received IV regular insulin and IV fluids. Monitor fingerstick glucose. Insulin sliding scale. Adjust insulins as needed. DVT prophylaxis: Lovenox Code status: Full code Quality Stroke Does the patient have a stroke diagnosis?: No VTE Prior VTE?: No VTE Risk Level:: Medical - moderate - high VTE Device Contraindication: Treatment Not Indicated VTE Drug Contraindication: N/A - Med Ordered
[2021-08-07] MEDS: levoFLOXacin/D5W 500 MG/100 ML PIGGYBACK 100 MG IV (23:47)
[2021-08-07] MEDS: 0.9 % Sodium Chloride 1,000 ML 999 ML IVCONT (23:56)
[2021-08-08] VITALS (9 sets, daily range): BP systolic 105–143; BP diastolic 59–72; PULSE 78–118; RESP 14–20; TEMP 36.7–37.8; O2SAT 95–100; BMI 25.7
[2021-08-08] MEDS: cefTRIAXone sodium 1 GM in 0.9 % Sodium Chloride 50 ML IV ×2 (00:52→23:29)
[2021-08-08 01:48] LABS: Glucose, Whole Blood 290 mg/dL (60-115)
[2021-08-08] MEDS: HYDROmorphone HCl 1 MG/ML SYRINGE 0.5 MG IVPUSH ×3 (05:08→17:28)
[2021-08-08 07:06] LABS: Glucose, Whole Blood 295 mg/dL (60-115)
[2021-08-08] MEDS: Insulin Lispro 100 UNIT/ML 3 ML VIAL SUBCUT ×4 (07:12→21:15)
[2021-08-08 07:32] LABS: Basophils Percent Auto 0.2 % (0-2); Eosinophils Absolute Auto 0.2 X10*3/uL (0.0-0.4); Hematocrit 28.5 % (37.0-47.0); Hemoglobin 9.1 g/dl (12.0-16.0); Imm Gran Abs Auto 0.32 X10*3/uL (0.00-0.03); Lymphocytes Absolute Auto 1.3 X10*3/uL (1.2-4.9); Lymphocytes Percent Auto 7.9 % (20-40); MANUAL DIFF FLAG SCAN; Mean Corpuscular HGB Conc 31.9 g/dl (31.0-35.0); Mean Corpuscular Hemoglobin 25.1 pg (27.0-33.0); Mean Corpuscular Volume 78.7 fL (80.0-98.0); Mean Platelet Volume 10.4 fL (9.4-12.3); Monocytes Absolute Auto 1.8 X10*3/uL (0.1-1.2); Monocytes Percent Auto 10.9 % (2-11); Neutrophils Absolute Auto 12.7 x10*3/uL (2.0-8.3); Platelet Count 268 X10*3/uL (160-400); Red Blood Count 3.62 X10*6/uL (4.20-5.50); Red Cell Distribution Width 13.2 % (11.0-16.0); SCAN SMEAR FLAG 1; White Blood Count 16.2 X10*3/uL (4.8-10.8)
[2021-08-08 07:46] LABS: Anion Gap 12 (12-20); Blood Urea Nitrogen 30 mg/dL (9-16); Calcium 7.8 mg/dL (8.4-10.2); Carbon Dioxide 20 mmol/L (22-29); Chloride 103 mmol/L (96-108); Creatinine Clr Calc Pharmacy 52.9; Estimated Glomerular Filt Rate 46; Glucose Random 322 mg/dL (60-115); Sodium 131 mmol/L (135-145)
[2021-08-08 08:01] LABS: SLIDE REVIEW VERIFIED
--- NOTE | 2021-08-08 08:41 | PHA.MEDREC ---
Pharmacy Consult ? Medication Reconciliation Pharmacy has completed the medication reconciliation.
--- NOTE | 2021-08-08 08:45 | P.PNIM_ITS ---
Subjective Subjective Date of Service: 08/08/21 Interval History: Seen and examined for abdominal pain, sepsisd d/t UTI and possible Pyelonephrinitis Review of Systems Gen: no fever Resp: no sob, no cough CV: no chest, no JIMENES, no leg edema GI: nausea and vomitting , +abd pain Neuro: No confusion Physical Exam Vital Signs: Vital Signs: Last Vital Signs Temp 98.1 F 08/08/21 08:06 Pulse 89 08/08/21 08:06 Resp 14 08/08/21 08:06 BP 105/66 08/08/21 08:06 Pulse Ox 98 08/08/21 08:06 BMI result Body Mass Index 25.7 Const: Other: General: AO X 3, no acute distress Resp: CTA bilateral CVS: S1,S2,RRR GI: +BS, NT, some lower abdomen Skin: No rash Neuro: motor grossly intact Psych: appropriate affect Objective Data Active Medications Acetaminophen (Acetaminophen 325 Mg Tablet) 650 mg PO Q6H PRN PRN Reason: Pain, Mild (Pain Scale 1-3) Dextrose (Dextrose 50 % 25 Gm/50 Ml Syringe) 25 gm IVPUSH Q15M PRN; Protocol PRN Reason: per Hypoglycemia Standing Ord. Enoxaparin Sodium (Enoxaparin Sodium 40 Mg/0.4 Ml Syringe) 40 mg SUBCUT Q24H [facility] Last Admin: 08/08/21 00:01 Dose: Not Given Documented by: SCARLETT Non-Admin Reason: Patient Refused Glucose (Glucose Gel 15 Gm Gel..Gram.) 15 gm PO Q15M PRN; Protocol PRN Reason: per Hypoglycemia Standing Ord. Hydromorphone HCl (Hydromorphone Hcl 1 Mg/Ml Syringe) 0.5 mg IVPUSH Q4H PRN; Protocol PRN Reason: Pain, Severe (Pain Scale 7-10) Last Admin: 08/08/21 05:08 Dose: 0.5 mg Documented by: SCARLETT Sodium Chloride (Ns) 1,000 mls @ 50 mls/hr IVCONT .Q20H [facility] Last Admin: 08/07/21 23:58 Dose: Not Given Documented by: SCARLETT Non-Admin Reason: IV Running Ceftriaxone Sodium 1 gm/ (Sodium Chloride) 50 mls @ 100 mls/hr IV Q24H [facility] Last Infusion: 08/08/21 01:36 Dose: 0 mls/hr Documented by: SCARLETT Insulin Human Lispro (Insulin Lispro 100 Unit/Ml 3 Ml Vial) 0 unit SUBCUT QIDACHS [facility]; Protocol Last Admin: 08/08/21 07:12 Dose: 6 unit Documented by: BEATRIZ Melatonin (Melatonin 3 Mg Tablet) 6 mg PO BEDTIME PRN PRN Reason: Insomnia Ondansetron HCl (Ondansetron Hcl 4 Mg/2 Ml Vial) 4 mg IVPUSH Q8H PRN PRN Reason: Nausea and Vomiting Senna (Sennosides 8.6 Mg Tablet) 17.2 mg PO BEDTIME PRN PRN Reason: Constipation Sodium Chloride (0.9 % Sodium Chloride Flush 3 Ml Syringe) 3 ml IVFLUSH QSHIFT [facility] Last Admin: 08/08/21 00:02 Dose: Not Given Documented by: SCARLETT Non-Admin Reason: IV Running Labs CBC & Chem 7: 08/08/21 07:03 08/08/21 07:03 Labs: Laboratory Results - last 24 hr 08/07/21 08/07/21 08/07/21 22:00 22:00 22:00 MCV 76.6 L MCH 24.9 L MCHC 32.5 RDW 13.0 Plt Count 322 MPV 10.4 Immature Gran % (Auto) 1.2 H Neut % (Auto) 78.1 H Lymph % (Auto) 8.7 L [place] % (Auto) 11.3 H Eos % (Auto) 0.5 Baso % (Auto) 0.2 Lymph # (Auto) 1.6 [place] # (Auto) 2.1 H Eos # (Auto) 0.1 Baso # (Auto) 0.0 Abs Immat Gran (auto) 0.23 H Absolute Neuts (auto) 14.7 H Absolute Nucleated RBC 0.000 Nucleated RBC % (auto) 0.0 Smear Tech's Comments VERIFIED Anion Gap 23 H Estim Creat Clear Calc 33.9 Estimated GFR 27 POC Glucose Random Glucose 457 H* Calcium 8.9 D Total Bilirubin 0.5 AST 32 H ALT 13 Alkaline Phosphatase 123 H Total Protein 7.7 Albumin 3.4 L Lipase 12 Urine Color Urine Appearance Urine pH Ur Specific [place] Urine Protein Urine Glucose (UA) Urine Ketones Urine Blood Urine Nitrite Ur Leukocyte Esterase Urine RBC Urine WBC Ur Squamous Epith Cells Urine Bacteria Granular Casts Urine Mucus COVID-19 (DOV) COVID-19 Clin Com Influenza Type A (SUJIT) Negative Influenza Type B (SUJIT) Negative Influenza A & B Note See Note 08/07/21 08/07/21 08/07/21 22:00 22:09 22:56 MCV MCH MCHC RDW Plt Count MPV Immature Gran % (Auto) Neut % (Auto) Lymph % (Auto) [place] % (Auto) Eos % (Auto) Baso % (Auto) Lymph # (Auto) [place] # (Auto) Eos # (Auto) Baso # (Auto) Abs Immat Gran (auto) Absolute Neuts (auto) Absolute Nucleated RBC Nucleated RBC % (auto) Smear Tech's Comments Anion Gap Estim Creat Clear Calc Estimated GFR POC Glucose 414 H* Random Glucose Calcium Total Bilirubin AST ALT Alkaline Phosphatase Total Protein Albumin Lipase Urine Color YELLOW Urine Appearance CLOUDY Urine pH 6.0 Ur Specific [place] 1.025 Urine Protein 2+ H Urine Glucose (UA) >=1000 H Urine Ketones 40 Urine Blood 3+ H Urine Nitrite NEG Ur Leukocyte Esterase 1+ H Urine RBC 5-9 H Urine WBC 30-49 H Ur Squamous Epith Cells 1+ Urine Bacteria 4+ Granular Casts 5-9 Urine Mucus 2+ COVID-19 (DOV) Negative COVID-19 Clin Com See Note Influenza Type A (SUJIT) Influenza Type B (SUJIT) Influenza A & B Note 08/07/21 08/08/21 08/08/21 22:59 01:42 06:58 MCV MCH MCHC RDW Plt Count MPV Immature Gran % (Auto) Neut % (Auto) Lymph % (Auto) [place] % (Auto) Eos % (Auto) Baso % (Auto) Lymph # (Auto) [place] # (Auto) Eos # (Auto) Baso # (Auto) Abs Immat Gran (auto) Absolute Neuts (auto) Absolute Nucleated RBC Nucleated RBC % (auto) Smear Tech's Comments Anion Gap Estim Creat Clear Calc Estimated GFR POC Glucose 320 H 290 H 295 H Random Glucose Calcium Total Bilirubin AST ALT Alkaline Phosphatase Total Protein Albumin Lipase Urine Color Urine Appearance Urine pH Ur Specific [place] Urine Protein Urine Glucose (UA) Urine Ketones Urine Blood Urine Nitrite Ur Leukocyte Esterase Urine RBC Urine WBC Ur Squamous Epith Cells Urine Bacteria Granular Casts Urine Mucus COVID-19 (DOV) COVID-19 Clin Com Influenza Type A (SUJIT) Influenza Type B (SUJIT) Influenza A & B Note 08/08/21 08/08/21 07:03 07:03 MCV 78.7 L MCH 25.1 L MCHC 31.9 RDW 13.2 Plt Count 268 MPV 10.4 Immature Gran % (Auto) 2.0 H Neut % (Auto) 78.0 H Lymph % (Auto) 7.9 L [place] % (Auto) 10.9 Eos % (Auto) 1.0 Baso % (Auto) 0.2 Lymph # (Auto) 1.3 [place] # (Auto) 1.8 H Eos # (Auto) 0.2 Baso # (Auto) 0.0 Abs Immat Gran (auto) 0.32 H Absolute Neuts (auto) 12.7 H Absolute Nucleated RBC 0.000 Nucleated RBC % (auto) 0.0 Smear Tech's Comments VERIFIED Anion Gap 12 Estim Creat Clear Calc 52.9 Estimated GFR 46 POC Glucose Random Glucose 322 H Calcium 7.8 L D Total Bilirubin AST ALT Alkaline Phosphatase Total Protein Albumin Lipase Urine Color Urine Appearance Urine pH Ur Specific [place] Urine Protein Urine Glucose (UA) Urine Ketones Urine Blood Urine Nitrite Ur Leukocyte Esterase Urine RBC Urine WBC Ur Squamous Epith Cells Urine Bacteria Granular Casts Urine Mucus COVID-19 (DOV) COVID-19 Clin Com Influenza Type A (SUJIT) Influenza Type B (SUJIT) Influenza A & B Note Assessment and Plan (1) Pyelonephritis: Status: Acute (2) UTI (urinary tract infection): Status: Acute (3) Sepsis: Status: Acute Plan 46-year-old female with a past medical history of diabetes presented to the hospital with a chief complaint of nausea /vomiting /abdominal pain. Noted to have UTI. Admitted for further management. Sepsis, met critieria with Tachycar, increase WBC. Possible Pyelo Continue ceftriaxone US Follow culture nausea/vomiting /abdominal pain: Likely in the setting of possible pyelonephritis. Supportive care. Zofran p.r.n.. RENEE: Likely prerenal. Resolved. Diabetes/ hyperglycemia. Restart Lantus, Hold Metformin due to renal failure. SSI DVT prophylaxis: Lovenox Code status: Full code Quality Stroke Does the patient have a stroke diagnosis?: No VTE Prior VTE?: No VTE Risk Level:: Medical - moderate - high VTE Device Contraindication: Treatment Not Indicated VTE Drug Contraindication: N/A - Med Ordered
--- NOTE | 2021-08-08 09:28 | MHC.CM.PN ---
PT REPORTS SHE LIVES AT HOME WITH HER THREE CHILDREN SHE REPORTS SHE IS INDEPENDENT WITH CARE AND HAS NO DME OR SERVICES PT REPORTS SHE GOES TO [facility] FOR PRIMARY CARE HOWEVER THEY ARE IN THE PROCESS OF ASSIGNING HER A NEW PROVIDER HER RETIRED PT REPORTS SHE DOES NOT KNOW IF SHE HAS A HCP, SHE DECLINES TO COMPLETE ONE AT THIS TIME, BUT REPORTS MAYBE LATER IN ADMISSION PT REPORTS SHE IS COVID-19 VACCINATED AND HAS HAD ONE BOOSTER CURRENT DC PLAN IS HOME WITH NO SERVICES PT TO SELF ARRANGE TRANSPORT
[2021-08-08] MEDS: Gabapentin 300 MG CAPSULE PO ×2 (10:12→21:15)
[2021-08-08] MEDS: Multivitamin TABLET 1 TAB PO (10:12)
--- NOTE | 2021-08-08 11:06 | P.CDIC_ITS ---
CDI Concurrent Query Documentation Clarification: PHYSICIAN'S DOCUMENTATION REQUEST Date of Query: 08/08/21 1104 Patient Name: Bertha Chan Admit Date: 08/07/21 Dear Doctor, A review of the medical record indicates additional documentation may be needed. Please review below and update the documentation accordingly. Clinical Indicators: Risk Factors/Clinical Indicators/Treatments Lab findings 08/07 - sodium 127 L nausea/vomiting/decreased oral intake. IV fluids Based on the above, could you clarify in the Progress Notes the appropriate diagnosis, if significant, that supports the above abnormalities and additional evaluation, monitoring, and/or treatment rendered: * Hyponatremia or other etiology of lab findings * Labs indicate a diagnosis of (please specify) * Other (please specify) * Unable to determine Use of terms such as suspected, likely, concern for, or probable (associated with a specific diagnosis that is being evaluated, monitored, or treated as if it exists) are acceptable and can be coded in the inpatient setting, when documented at the time of discharge. Thank you, Lucinda Rizo [facility], CDIS Extension: [phone] Please use your independent medical judgment in providing your response. THIS QUERY IS PART OF THE PERMANENT MEDICAL RECORD Provider Response: Other Other Diagnosis: hyponatremia
[2021-08-08 13:46] LABS: Glucose, Whole Blood 338 mg/dL (60-115)
[2021-08-08] MEDS: ondansetron HCL 4 MG/2 ML VIAL IVPUSH ×2 (14:26→23:40)
[2021-08-08 17:10] LABS: Glucose, Whole Blood 265 mg/dL (60-115)
[2021-08-08 20:14] LABS: Glucose, Whole Blood 200 mg/dL (60-115)
[2021-08-08] MEDS: Insulin Glargine,Hum.rec.anlog 100 UNIT/ML 10 ML VIAL 50 UNIT SUBCUT (21:15)
[2021-08-08] MEDS: 0.9 % Sodium Chloride Flush 3 ML SYRINGE IVFLUSH (21:16)
[2021-08-08] MEDS: 0.9 % Sodium Chloride 1,000 ML 50 ML IVCONT (21:18)
[2021-08-08] MEDS: Enoxaparin Sodium 40 MG/0.4 ML SYRINGE SUBCUT (23:34)
[2021-08-09 03:09] VITALS: BP 100/54; PULSE 104; RESP 15; TEMP 37.4; O2SAT 94
[2021-08-09 07:19] LABS: Glucose, Whole Blood 85 mg/dL (60-115)
[2021-08-09 07:23] VITALS: BP 137/71; PULSE 101; RESP 20; TEMP 37.6; O2SAT 92
[2021-08-09 07:31] LABS: Hematocrit 25.6 % (37.0-47.0); Hemoglobin 8.4 g/dl (12.0-16.0); Mean Corpuscular HGB Conc 32.8 g/dl (31.0-35.0); Mean Corpuscular Hemoglobin 25.4 pg (27.0-33.0); Mean Corpuscular Volume 77.3 fL (80.0-98.0); Mean Platelet Volume 10.5 fL (9.4-12.3); Platelet Count 310 X10*3/uL (160-400); Red Blood Count 3.31 X10*6/uL (4.20-5.50); Red Cell Distribution Width 13.3 % (11.0-16.0); White Blood Count 14.8 X10*3/uL (4.8-10.8)
[2021-08-09] MEDS: Gabapentin 300 MG CAPSULE PO ×2 (09:37→20:29)
[2021-08-09] MEDS: HYDROmorphone HCl 1 MG/ML SYRINGE 0.5 MG IVPUSH ×3 (09:37→23:33)
[2021-08-09] MEDS: 0.9 % Sodium Chloride Flush 3 ML SYRINGE IVFLUSH ×2 (09:37→20:29)
[2021-08-09] MEDS: Multivitamin TABLET 1 TAB PO (09:37)
[2021-08-09 11:37] LABS: Glucose, Whole Blood 119 mg/dL (60-115)
[2021-08-09 12:00] VITALS: BP 143/78; PULSE 102; RESP 20; TEMP 36.9; O2SAT 95
[2021-08-09 14:51] VITALS: BP 129/77; PULSE 100; RESP 18; TEMP 37.3; O2SAT 91
--- NOTE | 2021-08-09 15:24 | P.PNIM_ITS ---
Subjective Subjective Date of Service: 08/09/21 Interval History: Seen in f/u for UTI, pyelo interval history: still c/o pain in the lower abdomen Review of Systems no fever +abdominal pain Physical Exam Vital Signs: Vital Signs: Last Vital Signs Temp 99.1 F 08/09/21 14:51 Pulse 100 08/09/21 14:51 Resp 18 08/09/21 14:51 BP 129/77 08/09/21 14:51 Pulse Ox 91 L 08/09/21 14:51 BMI result Body Mass Index 25.7 Const: Other: General: AO X 3, no acute distress Resp: CTA bilateral CVS: S1,S2,RRR GI: mild lower abdominal tenderness Skin: No rash Neuro: motor grossly intact Psych: appropriate affect Objective Data Active Medications Acetaminophen (Acetaminophen 325 Mg Tablet) 650 mg PO Q6H PRN PRN Reason: Pain, Mild (Pain Scale 1-3) Dextrose (Dextrose 50 % 25 Gm/50 Ml Syringe) 25 gm IVPUSH Q15M PRN; Protocol PRN Reason: per Hypoglycemia Standing Ord. Enoxaparin Sodium (Enoxaparin Sodium 40 Mg/0.4 Ml Syringe) 40 mg SUBCUT Q24H [facility] Last Admin: 08/08/21 23:34 Dose: 40 mg Documented by: LLUVIA Gabapentin (Gabapentin 300 Mg Capsule) 300 mg PO BID [facility] Last Admin: 08/09/21 09:37 Dose: 300 mg Documented by: PAMELA Glucose (Glucose Gel 15 Gm Gel..Gram.) 15 gm PO Q15M PRN; Protocol PRN Reason: per Hypoglycemia Standing Ord. Hydromorphone HCl (Hydromorphone Hcl 1 Mg/Ml Syringe) 0.5 mg IVPUSH Q4H PRN; Protocol PRN Reason: Pain, Severe (Pain Scale 7-10) Last Admin: 08/09/21 14:37 Dose: 0.5 mg Documented by: PAMELA Sodium Chloride (Ns) 1,000 mls @ 50 mls/hr IVCONT .Q20H [facility] Last Admin: 08/08/21 21:18 Dose: 50 mls/hr Documented by: LLUVIA Ceftriaxone Sodium 1 gm/ (Sodium Chloride) 50 mls @ 100 mls/hr IV Q24H [facility] Last Infusion: 08/09/21 00:05 Dose: 0 mls/hr Documented by: LLUVIA Promethazine HCl 12.5 mg/ (Sodium Chloride) 50.5 mls @ 202 mls/hr IV Q6H PRN PRN Reason: Nausea and Vomiting Last Infusion: 08/08/21 18:36 Dose: 0 mls/hr Documented by: JAKE Insulin Glargine (Insulin Glargine,Hum.Rec.Anlog 100 Unit/Ml 10 Ml Vial) 50 unit SUBCUT BEDTIME [facility] Last Admin: 08/08/21 21:15 Dose: 50 unit Documented by: LLUVIA Insulin Human Lispro (Insulin Lispro 100 Unit/Ml 3 Ml Vial) 0 unit SUBCUT QIDACHS [facility]; Protocol Last Admin: 08/09/21 12:04 Dose: Not Given Documented by: PAMELA Non-Admin Reason: No Insulin Coverage Melatonin (Melatonin 3 Mg Tablet) 6 mg PO BEDTIME PRN PRN Reason: Insomnia Multivitamins/Vitamin C (Multivitamin Tablet) 1 tab PO DAILY [facility] Last Admin: 08/09/21 09:37 Dose: 1 tab Documented by: PAMELA Ondansetron HCl (Ondansetron Hcl 4 Mg/2 Ml Vial) 4 mg IVPUSH Q8H PRN PRN Reason: Nausea and Vomiting Last Admin: 08/08/21 23:40 Dose: 4 mg Documented by: LLUVIA Senna (Sennosides 8.6 Mg Tablet) 17.2 mg PO BEDTIME PRN PRN Reason: Constipation Sodium Chloride (0.9 % Sodium Chloride Flush 3 Ml Syringe) 3 ml IVFLUSH QSHIFT [facility] Last Admin: 08/09/21 09:37 Dose: 3 ml Documented by: PAMELA Labs CBC & Chem 7: 08/09/21 06:54 08/08/21 07:03 Labs: Laboratory Results - last 24 hr 08/08/21 08/08/21 08/09/21 17:06 20:06 06:54 MCV 77.3 L MCH 25.4 L MCHC 32.8 RDW 13.3 Plt Count 310 MPV 10.5 Absolute Nucleated RBC 0.000 Nucleated RBC % (auto) 0.0 POC Glucose 265 H 200 H 08/09/21 08/09/21 07:11 11:30 MCV MCH MCHC RDW Plt Count MPV Absolute Nucleated RBC Nucleated RBC % (auto) POC Glucose 85 119 H Microbiology Microbiology Results: Microbiology 08/07/21 Unknown Urine Culture - Preliminary Urine clean catch - Urine [place] Culture in progress. Assessment and Plan (1) Pyelonephritis: Status: Acute (2) Sepsis: Status: Acute Plan 46-year-old female with a past medical history of diabetes presented to the hospital with a chief complaint of nausea /vomiting /abdominal pain. ? noted to have UTI.? Admitted for further management.? Sepsis d/t Pyelonephritisis/UTI: US Mild right hydronephrosis with echogenic debris within raises the possibility of pyelonephritis. Culture pending. ?Continue ceftriaxone nausea/vomiting /abdominal pain:? Likely in the setting of possible pyelonephritis.? Supportive care.? Zofran p.r.n.. RENEE: Likely prerenal.? improved with IVF Diabetes: continue Lantus and SSI ? DVT prophylaxis:? Lovenox Code status:? Full code inaptient need for ongoing treatmenet for acute pyelonephritis, requiring iV Abx and Iv pain med for pain control Quality Stroke Does the patient have a stroke diagnosis?: No VTE Prior VTE?: No VTE Risk Level:: Medical - moderate - high VTE Device Contraindication: Treatment Not Indicated VTE Drug Contraindication: N/A - Med Ordered
[2021-08-09 16:12] LABS: Glucose, Whole Blood 142 mg/dL (60-115)
[2021-08-09] MEDS: 0.9 % Sodium Chloride 1,000 ML 50 ML IVCONT (18:11)
[2021-08-09 19:37] VITALS: BP 155/94; PULSE 110; RESP 16; TEMP 37.3; O2SAT 95
[2021-08-09 20:07] LABS: Glucose, Whole Blood 213 mg/dL (60-115)
[2021-08-09] MEDS: Insulin Glargine,Hum.rec.anlog 100 UNIT/ML 10 ML VIAL 50 UNIT SUBCUT (20:29)
[2021-08-09] MEDS: Insulin Lispro 100 UNIT/ML 3 ML VIAL SUBCUT (20:29)
[2021-08-09] MEDS: Enoxaparin Sodium 40 MG/0.4 ML SYRINGE SUBCUT (23:34)
[2021-08-09] MEDS: cefTRIAXone sodium 1 GM in 0.9 % Sodium Chloride 50 ML IV (23:36)
[2021-08-09 23:42] VITALS: BP 101/61; PULSE 99; RESP 19; TEMP 36.8; O2SAT 90
[2021-08-10] VITALS (7 sets, daily range): BP systolic 95–138; BP diastolic 61–78; PULSE 65–105; RESP 14–22; TEMP 36.2–38.1; O2SAT 90–97
[2021-08-10 07:14] LABS: Glucose, Whole Blood 72 mg/dL (60-115)
[2021-08-10] MEDS: Acetaminophen 325 MG TABLET 650 MG PO ×2 (08:12→19:26)
[2021-08-10] MEDS: Multivitamin TABLET 1 TAB PO (08:12)
[2021-08-10] MEDS: Gabapentin 300 MG CAPSULE PO (08:12)
[2021-08-10] MEDS: 0.9 % Sodium Chloride Flush 3 ML SYRINGE IVFLUSH ×2 (08:12→20:39)
--- NOTE | 2021-08-10 08:24 | HO.PM.IMPN ---
Subjective Subjective Date of Service: 08/10/21 Interval History: pyelonephritis, generalized weak and, dizzy Review of Systems She is still feeling very weak and was feeling slightly dizzy this morning. Still has on and off fevers and feels sweaty Denies any chest pain or nausea or vomiting Physical Exam Vital Signs: Vital Signs: Last Vital Signs Temp 100.2 F 08/10/21 07:36 Pulse 103 H 08/10/21 07:36 Resp 22 H 08/10/21 07:36 BP 136/73 08/10/21 07:36 Pulse Ox 92 08/10/21 07:36 BMI result Body Mass Index 25.7 General: AO X 3, no acute distress Resp:? CTA bilateral CVS: S1,S2,RRR GI: mild lower abdominal tenderness Skin: No rash Neuro:? motor grossly intact Psych: appropriate affect Objective Data Active Medications Acetaminophen (Acetaminophen 325 Mg Tablet) 650 mg PO Q6H PRN PRN Reason: Pain, Mild (Pain Scale 1-3) Last Admin: 08/10/21 08:12 Dose: 650 mg Documented by: OLIVIA Dextrose (Dextrose 50 % 25 Gm/50 Ml Syringe) 25 gm IVPUSH Q15M PRN; Protocol PRN Reason: per Hypoglycemia Standing Ord. Enoxaparin Sodium (Enoxaparin Sodium 40 Mg/0.4 Ml Syringe) 40 mg SUBCUT Q24H [facility] Last Admin: 08/09/21 23:34 Dose: 40 mg Documented by: LLUVIA Gabapentin (Gabapentin 300 Mg Capsule) 300 mg PO BID [facility] Last Admin: 08/10/21 08:12 Dose: 300 mg Documented by: OLIVIA Glucose (Glucose Gel 15 Gm Gel..Gram.) 15 gm PO Q15M PRN; Protocol PRN Reason: per Hypoglycemia Standing Ord. Hydromorphone HCl (Hydromorphone Hcl 1 Mg/Ml Syringe) 0.5 mg IVPUSH Q4H PRN; Protocol PRN Reason: Pain, Severe (Pain Scale 7-10) Last Admin: 08/09/21 23:33 Dose: 0.5 mg Documented by: LLUVIA Ceftriaxone Sodium 1 gm/ (Sodium Chloride) 50 mls @ 100 mls/hr IV Q24H [facility] Last Infusion: 08/10/21 00:22 Dose: 0 mls/hr Documented by: LLUVIA Promethazine HCl 12.5 mg/ (Sodium Chloride) 50.5 mls @ 202 mls/hr IV Q6H PRN PRN Reason: Nausea and Vomiting Last Infusion: 08/08/21 18:36 Dose: 0 mls/hr Documented by: JAKE Insulin Glargine (Insulin Glargine,Hum.Rec.Anlog 100 Unit/Ml 10 Ml Vial) 50 unit SUBCUT BEDTIME [facility] Last Admin: 08/09/21 20:29 Dose: 50 unit Documented by: LLUVIA Insulin Human Lispro (Insulin Lispro 100 Unit/Ml 3 Ml Vial) 0 unit SUBCUT QIDACHS [facility]; Protocol Last Admin: 08/10/21 07:12 Dose: Not Given Documented by: OLIVIA Non-Admin Reason: No Insulin Coverage Melatonin (Melatonin 3 Mg Tablet) 6 mg PO BEDTIME PRN PRN Reason: Insomnia Multivitamins/Vitamin C (Multivitamin Tablet) 1 tab PO DAILY [facility] Last Admin: 08/10/21 08:12 Dose: 1 tab Documented by: OLIVIA Ondansetron HCl (Ondansetron Hcl 4 Mg/2 Ml Vial) 4 mg IVPUSH Q8H PRN PRN Reason: Nausea and Vomiting Last Admin: 08/08/21 23:40 Dose: 4 mg Documented by: LLUVIA Senna (Sennosides 8.6 Mg Tablet) 17.2 mg PO BEDTIME PRN PRN Reason: Constipation Sodium Chloride (0.9 % Sodium Chloride Flush 3 Ml Syringe) 3 ml IVFLUSH QSHIFT [facility] Last Admin: 08/10/21 08:12 Dose: 3 ml Documented by: OLIVIA Labs CBC & Chem 7: 08/09/21 06:54 08/08/21 07:03 Labs: Laboratory Results - last 24 hr 08/09/21 08/09/21 08/09/21 11:30 16:09 20:02 POC Glucose 119 H 142 H 213 H 08/10/21 07:09 POC Glucose 72 Microbiology Microbiology Results: Microbiology 08/07/21 Unknown Urine Culture - Preliminary Urine clean catch - Urine [place] Culture in progress. Assessment and Plan (1) Sepsis: Status: Acute (2) Pyelonephritis: Status: Acute Plan 46-year-old female with a past medical history of diabetes presented to the hospital with a chief complaint of nausea /vomiting /abdominal pain. ? noted to have UTI.? Admitted for further management.? Sepsis?(POA) d/t Pyelonephritisis/UTI: US?Mild right hydronephrosis with echogenic debris within raises the possibility of pyelonephritis. Urine culture-mixed rob, repeat urine culture added, blood culture also added ?Continue ceftriaxone nausea/vomiting /abdominal pain:? Likely in the setting of possible pyelonephritis.? Supportive care.? Zofran p.r.n.gentle hydration feeeling slightly improvin over the afternoon: dizzinees improving RENEE: Likely prerenal.? improved with IVF Diabetes: continue Lantus and SSI ? DVT prophylaxis:? Lovenox Code status:? Full code need for inpatient: Pyelonephritis, RENEE, dehydration-requiring IV antibiotics and hydration. Cultures added. Quality Stroke Does the patient have a stroke diagnosis?: No VTE Prior VTE?: No VTE Risk Level:: Medical - moderate - high VTE Device Contraindication: Treatment Not Indicated VTE Drug Contraindication: N/A - Med Ordered
[2021-08-10 11:12] LABS: Glucose, Whole Blood 121 mg/dL (60-115)
--- NOTE | 2021-08-10 14:40 | MHC.CM.PN ---
per rounds pt is dizzy is not ready for dc
[2021-08-10 16:01] LABS: Glucose, Whole Blood 187 mg/dL (60-115)
[2021-08-10] MEDS: Lactated Ringers 1,000 ML 100 ML IVCONT (16:33)
[2021-08-10] MEDS: Insulin Lispro 100 UNIT/ML 3 ML VIAL SUBCUT ×2 (16:33→20:38)
[2021-08-10 20:26] LABS: Glucose, Whole Blood 179 mg/dL (60-115)
[2021-08-10] MEDS: HYDROmorphone HCl 1 MG/ML SYRINGE 0.5 MG IVPUSH (20:37)
[2021-08-10] MEDS: Insulin Glargine,Hum.rec.anlog 100 UNIT/ML 10 ML VIAL 50 UNIT SUBCUT (20:38)
[2021-08-10] MEDS: cefTRIAXone sodium 1 GM in 0.9 % Sodium Chloride 50 ML IV (23:39)
[2021-08-10] MEDS: Enoxaparin Sodium 40 MG/0.4 ML SYRINGE SUBCUT (23:40)
[2021-08-11] VITALS (7 sets, daily range): BP systolic 110–156; BP diastolic 65–89; PULSE 68–103; RESP 16–20; TEMP 36.2–37.4; O2SAT 92–97
[2021-08-11] MEDS: HYDROmorphone HCl 1 MG/ML SYRINGE 0.5 MG IVPUSH ×2 (00:37→10:03)
[2021-08-11] MEDS: Lactated Ringers 1,000 ML 100 ML IVCONT (03:15)
[2021-08-11 06:18] LABS: Hematocrit 27.2 % (37.0-47.0); Hemoglobin 8.7 g/dl (12.0-16.0); Mean Corpuscular Hemoglobin 24.9 pg (27.0-33.0); Mean Corpuscular Volume 77.9 fL (80.0-98.0); Mean Platelet Volume 9.7 fL (9.4-12.3); Platelet Count 381 X10*3/uL (160-400); Red Blood Count 3.49 X10*6/uL (4.20-5.50); Red Cell Distribution Width 13.6 % (11.0-16.0); White Blood Count 9.4 X10*3/uL (4.8-10.8)
[2021-08-11 06:34] LABS: Anion Gap 14 (12-20); Blood Urea Nitrogen 18 mg/dL (9-16); Calcium 8.7 mg/dL (8.4-10.2); Carbon Dioxide 24 mmol/L (22-29); Chloride 104 mmol/L (96-108); Creatinine Clr Calc Pharmacy 60.5; Estimated Glomerular Filt Rate 53; Glucose Random 100 mg/dL (60-115); Potassium 3.6 mmol/L (3.3-5.1); Sodium 138 mmol/L (135-145)
[2021-08-11 07:10] LABS: Glucose, Whole Blood 90 mg/dL (60-115)
[2021-08-11] MEDS: ondansetron HCL 4 MG/2 ML VIAL IVPUSH (07:25)
[2021-08-11] MEDS: Multivitamin TABLET 1 TAB PO (10:04)
[2021-08-11 11:13] LABS: Glucose, Whole Blood 118 mg/dL (60-115)
--- NOTE | 2021-08-11 15:36 | HO.PM.IMPN ---
Subjective Subjective Date of Service: 08/11/21 Interval History: pyelonephritis,flank pain Review of Systems Patient still has significant CVA tenderness, paraspinal muscle pain Generalized weak Does not feel dizzy or nausea or vomiting. Physical Exam Vital Signs: Vital Signs: Last Vital Signs Temp 99 F 08/11/21 15:24 Pulse 93 08/11/21 15:24 Resp 18 08/11/21 15:24 BP 150/89 H 08/11/21 15:24 Pulse Ox 92 08/11/21 15:24 BMI result Body Mass Index 25.7 General: AO X 3, no acute distress Resp:? CTA bilateral CVS: S1,S2,RRR GI: Soft, nondistended, has lot of flank pain area as well as CVA tenderness similar to yesterday right is more than left, bowel sounds present. Skin: No rash Neuro:? motor grossly intact Psych: appropriate affect Objective Data Active Medications Acetaminophen (Acetaminophen 325 Mg Tablet) 650 mg PO Q6H PRN PRN Reason: Pain, Mild (Pain Scale 1-3) Last Admin: 08/10/21 19:26 Dose: 650 mg Documented by: ABDI Dextrose (Dextrose 50 % 25 Gm/50 Ml Syringe) 25 gm IVPUSH Q15M PRN; Protocol PRN Reason: per Hypoglycemia Standing Ord. Enoxaparin Sodium (Enoxaparin Sodium 40 Mg/0.4 Ml Syringe) 40 mg SUBCUT Q24H [facility] Last Admin: 08/10/21 23:40 Dose: 40 mg Documented by: BRANDON Gabapentin (Gabapentin 300 Mg Capsule) 300 mg PO BID [facility] Last Admin: 08/10/21 08:12 Dose: 300 mg Documented by: OLIVIA Glucose (Glucose Gel 15 Gm Gel..Gram.) 15 gm PO Q15M PRN; Protocol PRN Reason: per Hypoglycemia Standing Ord. Hydromorphone HCl (Hydromorphone Hcl 1 Mg/Ml Syringe) 0.5 mg IVPUSH Q4H PRN; Protocol PRN Reason: Pain, Severe (Pain Scale 7-10) Last Admin: 08/11/21 10:03 Dose: 0.5 mg Documented by: LORENA Ceftriaxone Sodium 1 gm/ (Sodium Chloride) 50 mls @ 100 mls/hr IV Q24H [facility] Last Infusion: 08/11/21 00:46 Dose: 0 mls/hr Documented by: BRANDON Promethazine HCl 12.5 mg/ (Sodium Chloride) 50.5 mls @ 202 mls/hr IV Q6H PRN PRN Reason: Nausea and Vomiting Last Infusion: 08/08/21 18:36 Dose: 0 mls/hr Documented by: JAKE Lactated Ringer's (Lr) 1,000 mls @ 100 mls/hr IVCONT .Q10H [facility] Last Admin: 08/11/21 03:15 Dose: 100 mls/hr Documented by: BRANDON Insulin Glargine (Insulin Glargine,Hum.Rec.Anlog 100 Unit/Ml 10 Ml Vial) 50 unit SUBCUT BEDTIME [facility] Last Admin: 08/10/21 20:38 Dose: 50 unit Documented by: BRANDON Insulin Human Lispro (Insulin Lispro 100 Unit/Ml 3 Ml Vial) 0 unit SUBCUT QIDACHS [facility]; Protocol Last Admin: 08/11/21 11:40 Dose: Not Given Documented by: LORENA Non-Admin Reason: No Insulin Coverage Melatonin (Melatonin 3 Mg Tablet) 6 mg PO BEDTIME PRN PRN Reason: Insomnia Multivitamins/Vitamin C (Multivitamin Tablet) 1 tab PO DAILY [facility] Last Admin: 08/11/21 10:04 Dose: 1 tab Documented by: LORENA Ondansetron HCl (Ondansetron Hcl 4 Mg/2 Ml Vial) 4 mg IVPUSH Q8H PRN PRN Reason: Nausea and Vomiting Last Admin: 08/11/21 07:25 Dose: 4 mg Documented by: LORENA Senna (Sennosides 8.6 Mg Tablet) 17.2 mg PO BEDTIME PRN PRN Reason: Constipation Sodium Chloride (0.9 % Sodium Chloride Flush 3 Ml Syringe) 3 ml IVFLUSH QSHIFT [facility] Last Admin: 08/11/21 09:29 Dose: Not Given Documented by: LORENA Non-Admin Reason: IV Running Labs CBC & Chem 7: 08/11/21 05:43 08/11/21 05:43 Labs: Laboratory Results - last 24 hr 08/10/21 08/10/21 08/11/21 15:52 20:19 05:43 MCV 77.9 L MCH 24.9 L MCHC 32.0 RDW 13.6 Plt Count 381 MPV 9.7 Absolute Nucleated RBC 0.000 Nucleated RBC % (auto) 0.0 Anion Gap Estim Creat Clear Calc Estimated GFR POC Glucose 187 H 179 H Random Glucose Calcium 08/11/21 08/11/21 08/11/21 05:43 07:06 11:02 MCV MCH MCHC RDW Plt Count MPV Absolute Nucleated RBC Nucleated RBC % (auto) Anion Gap 14 Estim Creat Clear Calc 60.5 Estimated GFR 53 POC Glucose 90 118 H Random Glucose 100 Calcium 8.7 D Microbiology Microbiology Results: Microbiology 08/07/21 Unknown Urine Culture - Final Urine clean catch - Urine [place] Assessment and Plan (1) Sepsis: Status: Acute (2) Pyelonephritis: Status: Acute (3) UTI (urinary tract infection): Status: Acute Plan 46-year-old female with a past medical history of diabetes presented to the hospital with a chief complaint of nausea /vomiting /abdominal pain. ? noted to have UTI.? Admitted for further management.? Sepsis?(POA) d/t Pyelonephritisis/UTI: US?Mild right hydronephrosis with echogenic debris within raises the possibility of pyelonephritis. still has intermittent fevers Urine culture-mixed rob, repeat urine culture blood culture pending and urine culture repeat added. Due to pain abdominal ultrasound was also done: Discussed with the radiology patient has a right-sided renal stranding more than the left side on the CT scan(prelim) ?Continue ceftriaxone Id evaluation added nausea/vomiting /abdominal pain:? Likely in the setting of possible pyelonephritis.? Supportive care.? Zofran p.r.n.gentle hydration dizzinees improved. RENEE: Likely prerenal.? improved with IVF Diabetes: continue Lantus and SSI ? DVT prophylaxis:? Lovenox Code status:? Full code need for inpatient:? Pyelonephritis, RENEE, dehydration-requiring IV antibiotics and hydration.? Cultures added. Quality Stroke Does the patient have a stroke diagnosis?: No VTE Prior VTE?: No VTE Risk Level:: Medical - moderate - high VTE Device Contraindication: Treatment Not Indicated VTE Drug Contraindication: N/A - Med Ordered
[2021-08-11 16:19] LABS: Glucose, Whole Blood 145 mg/dL (60-115)
[2021-08-11 19:44] LABS: Glucose, Whole Blood 239 mg/dL (60-115)
[2021-08-11] MEDS: Acetaminophen 325 MG TABLET 650 MG PO (19:47)
[2021-08-11] MEDS: HYDROmorphone HCl 0.5 MG/0.5 ML SYRINGE IVPUSH (19:47)
[2021-08-11] MEDS: 0.9 % Sodium Chloride Flush 3 ML SYRINGE IVFLUSH (19:48)
[2021-08-11] MEDS: Insulin Lispro 100 UNIT/ML 3 ML VIAL SUBCUT (19:48)
[2021-08-11] MEDS: Insulin Glargine,Hum.rec.anlog 100 UNIT/ML 10 ML VIAL 50 UNIT SUBCUT (19:48)
[2021-08-12] VITALS (9 sets, daily range): BP systolic 128–163; BP diastolic 71–88; PULSE 76–96; RESP 16–20; TEMP 36.4–37.7; O2SAT 93–98
[2021-08-12] MEDS: Lactated Ringers 1,000 ML 100 ML IVCONT ×2 (00:57→11:06)
[2021-08-12] MEDS: HYDROmorphone HCl 1 MG/ML SYRINGE 0.5 MG IVPUSH ×2 (00:58→16:35)
[2021-08-12] MEDS: Enoxaparin Sodium 40 MG/0.4 ML SYRINGE SUBCUT (00:58)
[2021-08-12] MEDS: cefTRIAXone sodium 1 GM in 0.9 % Sodium Chloride 50 ML IV (01:07)
[2021-08-12] MEDS: ondansetron HCL 4 MG/2 ML VIAL IVPUSH (05:09)
[2021-08-12 07:14] LABS: Glucose, Whole Blood 89 mg/dL (60-115)
[2021-08-12] MEDS: HYDROmorphone HCl 0.5 MG/0.5 ML SYRINGE IVPUSH ×2 (08:22→21:04)
[2021-08-12] MEDS: 0.9 % Sodium Chloride Flush 3 ML SYRINGE IVFLUSH ×2 (08:22→16:37)
--- NOTE | 2021-08-12 08:22 | HO.PM.IMPN ---
Subjective Subjective Date of Service: 08/12/21 Interval History: Pyelonephritis Review of Systems Pain and fever improving Still has flank pain right-sided greater than left and also says CVA tenderness Feels nauseated, vomited this morning Physical Exam Vital Signs: Vital Signs: Last Vital Signs Temp 98.2 F 08/12/21 07:23 Pulse 84 08/12/21 07:23 Resp 18 08/12/21 07:23 BP 132/77 08/12/21 07:23 Pulse Ox 96 08/12/21 07:23 BMI result Body Mass Index 25.7 General: AO X 3, no acute distress Resp:? CTA bilateral CVS: S1,S2,RRR GI:? Soft, nondistende,flank pain area as well as CVA tenderness - right is more than left, bowel sounds present. Skin: No rash Neuro:? motor grossly intact Psych: appropriate affect Objective Data Active Medications Acetaminophen (Acetaminophen 325 Mg Tablet) 650 mg PO Q6H PRN PRN Reason: Pain, Mild (Pain Scale 1-3) Last Admin: 08/11/21 19:47 Dose: 650 mg Documented by: BRANDON Dextrose (Dextrose 50 % 25 Gm/50 Ml Syringe) 25 gm IVPUSH Q15M PRN; Protocol PRN Reason: per Hypoglycemia Standing Ord. Enoxaparin Sodium (Enoxaparin Sodium 40 Mg/0.4 Ml Syringe) 40 mg SUBCUT Q24H [facility] Last Admin: 08/12/21 00:58 Dose: 40 mg Documented by: BRANDON Gabapentin (Gabapentin 300 Mg Capsule) 300 mg PO BID [facility] Last Admin: 08/10/21 08:12 Dose: 300 mg Documented by: OLIVIA Glucose (Glucose Gel 15 Gm Gel..Gram.) 15 gm PO Q15M PRN; Protocol PRN Reason: per Hypoglycemia Standing Ord. Hydromorphone HCl (Hydromorphone Hcl 1 Mg/Ml Syringe) 0.5 mg IVPUSH Q4H PRN; Protocol PRN Reason: Pain, Severe (Pain Scale 7-10) Last Admin: 08/12/21 00:58 Dose: 0.5 mg Documented by: BRANDON Hydromorphone HCl (Hydromorphone Hcl 0.5 Mg/0.5 Ml Syringe) 0.5 mg IVPUSH BID [facility]; Protocol Last Admin: 08/12/21 08:22 Dose: 0.5 mg Documented by: GONZALO Ceftriaxone Sodium 1 gm/ (Sodium Chloride) 50 mls @ 100 mls/hr IV Q24H [facility] Last Infusion: 08/12/21 02:39 Dose: 0 mls/hr Documented by: BRANDON Promethazine HCl 12.5 mg/ (Sodium Chloride) 50.5 mls @ 202 mls/hr IV Q6H PRN PRN Reason: Nausea and Vomiting Last Admin: 08/12/21 08:17 Dose: 202 mls/hr Documented by: GONZALO Comments: 12.5mg Lactated Ringer's (Lr) 1,000 mls @ 100 mls/hr IVCONT .Q10H [facility] Last Admin: 08/12/21 00:57 Dose: 100 mls/hr Documented by: BRANDON Insulin Glargine (Insulin Glargine,Hum.Rec.Anlog 100 Unit/Ml 10 Ml Vial) 50 unit SUBCUT BEDTIME [facility] Last Admin: 08/11/21 19:48 Dose: 50 unit Documented by: BRANDON Insulin Human Lispro (Insulin Lispro 100 Unit/Ml 3 Ml Vial) 0 unit SUBCUT QIDACHS [facility]; Protocol Last Admin: 08/12/21 08:09 Dose: Not Given Documented by: GONZALO Non-Admin Reason: No Insulin Coverage Lidocaine (Lidocaine 4 % Patch Adh..Patch) 1 patch TRANSDERMA DAILY [facility]; Protocol Melatonin (Melatonin 3 Mg Tablet) 6 mg PO BEDTIME PRN PRN Reason: Insomnia Multivitamins/Vitamin C (Multivitamin Tablet) 1 tab PO DAILY [facility] Last Admin: 08/11/21 10:04 Dose: 1 tab Documented by: LORENA Ondansetron HCl (Ondansetron Hcl 4 Mg/2 Ml Vial) 4 mg IVPUSH Q8H PRN PRN Reason: Nausea and Vomiting Last Admin: 08/12/21 05:09 Dose: 4 mg Documented by: BRANDON Senna (Sennosides 8.6 Mg Tablet) 17.2 mg PO BEDTIME PRN PRN Reason: Constipation Sodium Chloride (0.9 % Sodium Chloride Flush 3 Ml Syringe) 3 ml IVFLUSH QSHIFT [facility] Last Admin: 08/12/21 08:22 Dose: 3 ml Documented by: GONZALO Labs CBC & Chem 7: 08/11/21 05:43 08/11/21 05:43 Labs: Laboratory Results - last 24 hr 08/11/21 08/11/21 08/11/21 11:02 16:15 19:39 POC Glucose 118 H 145 H 239 H 08/12/21 07:08 POC Glucose 89 Microbiology Microbiology Results: Microbiology 08/10/21 19:31 Blood Culture - Preliminary Blood - Venous No growth after 24 hours. 08/10/21 19:31 Blood Culture - Preliminary Blood - Venous No growth after 24 hours. Assessment and Plan (1) Sepsis: Status: Acute (2) Pyelonephritis: Status: Acute (3) UTI (urinary tract infection): Status: Acute Plan 46-year-old female with a past medical history of diabetes presented to the hospital with a chief complaint of nausea /vomiting /abdominal pain. ? noted to have UTI.? Admitted for further management.? Sepsis?(POA) d/t Pyelonephritisis/UTI: US?Mild right hydronephrosis with echogenic debris within raises the possibility of pyelonephritis. still has intermittent fevers Urine culturex2-mixed rob blood culture @24hrs . Ct abd (08/11):Both kidneys are slightly smaller when compared to the 2019 study. Mild fullness in the right collecting system along with the above-mentioned findings could be secondary to pyelonephritis in the correct clinical setting. The vague punctate densities seen in the right kidney are of uncertain significance. Increasing size of retroperitoneal lymph nodes may be reactive. ?Continue ceftriaxone day3. Id evaluation pendin nausea/vomiting /abdominal pain:? Likely in the setting of possible pyelonephritis.? Supportive care.? Zofran p.r.n.gentle hydration RENEE: Likely prerenal.? improved with IVF, continue moniter bmp. i Diabetes:fs 90-161 continue Lantus and SSI ? DVT prophylaxis:? Lovenox Code status:? Full code need for inpatient:? Pyelonephritis, RENEE, dehydration-requiring IV antibiotics and hydration.?blood Cultures wait until neg@48hrs . Quality Stroke Does the patient have a stroke diagnosis?: No VTE Prior VTE?: No VTE Risk Level:: Medical - moderate - high VTE Device Contraindication: Treatment Not Indicated VTE Drug Contraindication: N/A - Med Ordered
[2021-08-12] MEDS: Lidocaine 4 % Patch ADH..PATCH 1 PATCH TRANSDERMA (11:02)
[2021-08-12] MEDS: Multivitamin TABLET 1 TAB PO (11:05)
[2021-08-12 11:57] LABS: Glucose, Whole Blood 161 mg/dL (60-115)
[2021-08-12] MEDS: Insulin Lispro 100 UNIT/ML 3 ML VIAL SUBCUT ×2 (12:11→17:36)
--- NOTE | 2021-08-12 12:48 | MHC.CM.PN ---
Per ROUNDS discussion, Patient is not yet medically cleared for dc (IV Ceftriaxone, IV Dilaudid, IV Promethazine); home is the goal and CM will continue to follow for possible need to adjust the dc plan.
--- NOTE | 2021-08-12 15:42 | P.CNID_ITS ---
History of Present Illness Data of Consult Service Date: 08/12/21 Requesting physician: Bib Buchanan Primary Care Provider: [facility] Reason for consult: right pyelonephritis She presents with vomiting for last two days as well as 7/10 right flank pain. She has chills. Urine doesnt show dominant organism. Review of Systems Review of Systems: Yes all other systems are reviewed and are negative [facility] Past Medical History Medical History 23-polyvalent pneumococcal polysaccharide vaccine indication of diabetes in patient 6 to 64 years of age Asthma Social History Social History Household Members: Family Housing: Apartment Do you presently have visiting nurse or other home services: No Patient Tobacco Use Status: Never used Tobacco service: No Current occupational status: employed Meds Allergies Allergy/AdvReac Type Severity Reaction Status Date / Time No Known Allergies Allergy Mild NONE Verified 10/20/20 15:13 Active Medications: Current Medications Acetaminophen (Acetaminophen 325 Mg Tablet) 650 mg PO Q6H PRN PRN Reason: Pain, Mild (Pain Scale 1-3) Last Admin: 08/11/21 19:47 Dose: 650 mg Documented by: Dextrose (Dextrose 50 % 25 Gm/50 Ml Syringe) 25 gm IVPUSH Q15M PRN; Protocol PRN Reason: per Hypoglycemia Standing Ord. Enoxaparin Sodium (Enoxaparin Sodium 40 Mg/0.4 Ml Syringe) 40 mg SUBCUT Q24H [facility] Last Admin: 08/12/21 00:58 Dose: 40 mg Documented by: Gabapentin (Gabapentin 300 Mg Capsule) 300 mg PO BID [facility] Last Admin: 08/10/21 08:12 Dose: 300 mg Documented by: Glucose (Glucose Gel 15 Gm Gel..Gram.) 15 gm PO Q15M PRN; Protocol PRN Reason: per Hypoglycemia Standing Ord. Hydromorphone HCl (Hydromorphone Hcl 1 Mg/Ml Syringe) 0.5 mg IVPUSH Q4H PRN; Protocol PRN Reason: Pain, Severe (Pain Scale 7-10) Last Admin: 08/12/21 00:58 Dose: 0.5 mg Documented by: Hydromorphone HCl (Hydromorphone Hcl 0.5 Mg/0.5 Ml Syringe) 0.5 mg IVPUSH BID [facility]; Protocol Last Admin: 08/12/21 08:22 Dose: 0.5 mg Documented by: Ceftriaxone Sodium 1 gm/ (Sodium Chloride) 50 mls @ 100 mls/hr IV Q24H [facility] Last Infusion: 08/12/21 02:39 Dose: Infused Documented by: Promethazine HCl 12.5 mg/ (Sodium Chloride) 50.5 mls @ 202 mls/hr IV Q6H PRN PRN Reason: Nausea and Vomiting Last Infusion: 08/12/21 09:10 Dose: Infused Documented by: Lactated Ringer's (Lr) 1,000 mls @ 100 mls/hr IVCONT .Q10H [facility] Last Admin: 08/12/21 11:06 Dose: 100 mls/hr Documented by: Insulin Glargine (Insulin Glargine,Hum.Rec.Anlog 100 Unit/Ml 10 Ml Vial) 50 unit SUBCUT BEDTIME [facility] Last Admin: 08/11/21 19:48 Dose: 50 unit Documented by: Insulin Human Lispro (Insulin Lispro 100 Unit/Ml 3 Ml Vial) 0 unit SUBCUT QIDACHS [facility]; Protocol Last Admin: 08/12/21 12:11 Dose: 2 unit Documented by: Lidocaine (Lidocaine 4 % Patch Adh..Patch) 1 patch TRANSDERMA DAILY [facility]; Protocol Last Admin: 08/12/21 11:02 Dose: 1 patch Documented by: Melatonin (Melatonin 3 Mg Tablet) 6 mg PO BEDTIME PRN PRN Reason: Insomnia Multivitamins/Vitamin C (Multivitamin Tablet) 1 tab PO DAILY [facility] Last Admin: 08/12/21 11:05 Dose: 1 tab Documented by: Ondansetron HCl (Ondansetron Hcl 4 Mg/2 Ml Vial) 4 mg IVPUSH Q8H PRN PRN Reason: Nausea and Vomiting Last Admin: 08/12/21 05:09 Dose: 4 mg Documented by: Senna (Sennosides 8.6 Mg Tablet) 17.2 mg PO BEDTIME PRN PRN Reason: Constipation Sodium Chloride (0.9 % Sodium Chloride Flush 3 Ml Syringe) 3 ml IVFLUSH QSHIFT [facility] Last Admin: 08/12/21 08:22 Dose: 3 ml Documented by: Home Medications Medication Instructions Recorded Confirmed Last Taken Type gabapentin 300 mg capsule 300 mg PO BID 08/08/21 08/08/21 Unknown History insulin glargine 100 unit/mL 50 unit SUBCUT BEDTIME 08/08/21 08/08/21 08/04/21 History subcutaneous solution (Lantus U-100 Insulin) metformin 1,000 mg tablet 1,000 mg PO BID 08/08/21 08/08/21 08/04/21 History multivitamin 1 tab PO DAILY 08/08/21 08/08/21 08/04/21 History Physical Exam Vital Signs: Vital Signs: Last Vital Signs Temp 99.5 F 08/12/21 11:33 Pulse 87 08/12/21 11:33 Resp 16 08/12/21 11:33 BP 128/78 08/12/21 11:33 Pulse Ox 94 08/12/21 11:33 BMI result Body Mass Index 25.7 Const: General: cooperative HEENT: Head: Yes normal to inspection Mouth: Normal oral and palatal mucosa present Resp: Effort & Inspection: normal respiratory effort Cardio: Rate: regular rate Rhythm: regular rhythm GI: Palpation (GI): Soft to palpation and Tenderness to palpation present (GI) (right CVA discomfort) Skin: General skin exam: no rashes or lesions noted Extrem: General: Yes normal to inspection Results Labs CBC & Chem 7: 08/11/21 05:43 08/11/21 05:43 Microbiology Microbiology Results: Microbiology 08/11/21 11:55 Urine clean catch - Urine [place] Urine Culture - Final 08/10/21 19:31 Blood - Venous Blood Culture - Preliminary No growth after 24 hours. 08/10/21 19:31 Blood - Venous Blood Culture - Preliminary No growth after 24 hours. 08/07/21 Unknown Urine clean catch - Urine [place] Urine Culture - Final Assessment and Plan (1) Sepsis: Status: Acute She has right pyelonephritis. She has possible gram negative most likely E coli or Klebsiella (2) Pyelonephritis: Status: Acute Plan Would continue Ceftriaxone Would probably give po Ceftin total 14 days outpatient. May see Renal as outpatient if desired but likely kidney will recover fairly quicklly
[2021-08-12 16:33] LABS: Glucose, Whole Blood 186 mg/dL (60-115)
[2021-08-12 20:58] LABS: Glucose, Whole Blood 137 mg/dL (60-115)
[2021-08-12] MEDS: Insulin Glargine,Hum.rec.anlog 100 UNIT/ML 10 ML VIAL 50 UNIT SUBCUT (21:04)
[2021-08-13] MEDS: 0.9 % Sodium Chloride Flush 3 ML SYRINGE IVFLUSH ×2 (00:40→11:17)
[2021-08-13] MEDS: Enoxaparin Sodium 40 MG/0.4 ML SYRINGE SUBCUT (00:40)
[2021-08-13] MEDS: cefTRIAXone sodium 1 GM in 0.9 % Sodium Chloride 50 ML IV (00:41)
[2021-08-13] MEDS: HYDROmorphone HCl 1 MG/ML SYRINGE 0.5 MG IVPUSH (00:43)
[2021-08-13 04:00] VITALS: BP 131/70; PULSE 74; RESP 16; TEMP 36; O2SAT 94
[2021-08-13 06:52] LABS: Hematocrit 24.9 % (37.0-47.0); Hemoglobin 7.9 g/dl (12.0-16.0); Mean Corpuscular HGB Conc 31.7 g/dl (31.0-35.0); Mean Corpuscular Hemoglobin 24.8 pg (27.0-33.0); Mean Corpuscular Volume 78.3 fL (80.0-98.0); Platelet Count 417 X10*3/uL (160-400); Red Blood Count 3.18 X10*6/uL (4.20-5.50); Red Cell Distribution Width 13.7 % (11.0-16.0); White Blood Count 10.3 X10*3/uL (4.8-10.8)
[2021-08-13 07:22] LABS: Glucose, Whole Blood 57 mg/dL (60-115)
[2021-08-13 07:33] LABS: Anion Gap 13 (12-20); Blood Urea Nitrogen 10 mg/dL (9-16); Calcium 8.7 mg/dL (8.4-10.2); Carbon Dioxide 28 mmol/L (22-29); Chloride 104 mmol/L (96-108); Creatinine Clr Calc Pharmacy 83.2; Estimated Glomerular Filt Rate > 60; Glucose Random 54 mg/dL (60-115); Potassium 3.2 mmol/L (3.3-5.1); Sodium 142 mmol/L (135-145)
[2021-08-13 07:37] VITALS: BP 140/80; PULSE 78; RESP 20; TEMP 36.1; O2SAT 98
[2021-08-13 07:56] LABS: Glucose, Whole Blood 57 mg/dL (60-115)
[2021-08-13 08:23] LABS: Glucose, Whole Blood 95 mg/dL (60-115)
[2021-08-13] MEDS: Lidocaine 4 % Patch ADH..PATCH 1 PATCH TRANSDERMA (11:15)
--- NOTE | 2021-08-13 11:16 | PM.DS ---
DS: Providers Provider Date of Service: 08/13/21 Date of admission: 08/07/21 23:29 Primary care physician: [facility] Consults: 08/11/21 10:40 Consult to Infectious Diseases Routine Consulting Provider: Jessika Gandhi Reason for consultation: pyelonephritis Has provider been notified: No DS: Diagnosis Discharge Diagnosis (1) Sepsis: Status: Resolved (2) Pyelonephritis: Status: Resolved DS: Summary Hospital Course Hospital Course: Chief Complaint:? nausea/vomiting / abdominal pain ?46-year-old female with a past medical history of diabetes presented to the hospital with a chief complaint of nausea /vomiting /abdominal pain.? ?patient reports that since asked that she has been having nausea vomiting and abdominal pain; had multiple episodes of vomiting; had decreased oral intake.? Also has not been taking her insulin.? Abdominal pain is located in the bilateral lower quadrants; no diarrhea reported.? Denies any blood in the vomitus.? Denies any urinary frequency urgency or dysuria. ? Mention she feels generally weak. Denies any chest pain or palpitations.? Denies any fever chills cough.? Review of all other systems is negative except mentioned above ER course: Per ER team patient noted? to have abnormal urinalysis consistent with UTI, also noted to have hyperglycemia - given regular insulin IV push and IV fluids.? On labs noted to have renal insufficiency with creatinine of 1.9-presumed to be prerenal.? Admitted to the hospital for further management Hospital course: Sepsis?(POA) d/t Pyelonephritisis/UTI: US?Mild right hydronephrosis with echogenic debris within raises the possibility of pyelonephritis. Urine culture has been negative but ID is recommending 14 days total of antiboitics. Receieved 4 days of Ceftriaxone and will change to oral Ceftin for [address] abd (08/11):Both kidneys are slightly smaller when compared to the 2019 study. Mild fullness in the right collecting system along with the above-mentioned findings could be secondary to pyelonephritis in the correct clinical setting. The vague punctate densities seen in the right kidney are of uncertain significance. Increasing size of retroperitoneal lymph nodes may be reactive. CT can be repeat at later time on outpatient basis nausea/vomiting /abdominal pain:? Likely in the setting of possible pyelonephritis.?Resolved RENEE: Likely prerenal from nausea and vomitting causing dehydration.?Resolved with IVF, Creatine chuy to 0.9 from 1.9 on admission HypOkalemia--replaced with oral potassium. Potassium was 3.2 Hypoglycemia in 50s--likely due to Lantus and not eating regular meals in the hospital Time Spent with Patient Time attestation: Total time spent providing and/or coordinating discharge services: Discharge coordination time: Greater than 30 minutes Quality: Safe Use of Opioids Does Pt have an Active Cancer Diagnosis on the Problem List?: No Quality: Stroke Does the patient have a stroke diagnosis?: No Physical Exam Vital Signs: Vital Signs: Last Vital Signs Temp 96.9 F 08/13/21 07:37 Pulse 78 08/13/21 07:37 Resp 20 08/13/21 07:37 BP 140/80 H 08/13/21 07:37 Pulse Ox 98 08/13/21 07:37 BMI result Body Mass Index 25.7 DS: Data Data Completed and Pending Labs on day of discharge: Laboratory Results - last 24 hr 08/12/21 08/12/21 08/12/21 11:35 16:00 20:27 WBC RBC Hgb Hct MCV MCH MCHC RDW Plt Count MPV Absolute Nucleated RBC Nucleated RBC % (auto) Sodium Potassium Chloride Carbon Dioxide Anion Gap BUN Creatinine Estim Creat Clear Calc Estimated GFR POC Glucose 161 H 186 H 137 H Random Glucose Calcium 08/13/21 08/13/21 08/13/21 06:29 06:29 07:05 WBC 10.3 RBC 3.18 L Hgb 7.9 L Hct 24.9 L MCV 78.3 L MCH 24.8 L MCHC 31.7 RDW 13.7 Plt Count 417 H MPV 9.0 L Absolute Nucleated RBC 0.000 Nucleated RBC % (auto) 0.0 Sodium 142 Potassium 3.2 L Chloride 104 Carbon Dioxide 28 Anion Gap 13 BUN 10 Creatinine 0.80 Estim Creat Clear Calc 83.2 Estimated GFR > 60 POC Glucose 57 L* Random Glucose 54 L* Calcium 8.7 08/13/21 08/13/21 07:53 08:19 WBC RBC Hgb Hct MCV MCH MCHC RDW Plt Count MPV Absolute Nucleated RBC Nucleated RBC % (auto) Sodium Potassium Chloride Carbon Dioxide Anion Gap BUN Creatinine Estim Creat Clear Calc Estimated GFR POC Glucose 57 L* 95 Random Glucose Calcium Preliminary micro results at discharge 08/10/21 19:31 Blood Culture - Preliminary Blood - Venous No growth after 48 hours. 08/10/21 19:31 Blood Culture - Preliminary Blood - Venous No growth after 48 hours. Discharge Plan Discharge Anticipated Discharge Date/Time: 08/13/21 11:16 Patient Disposition: Home, Self-Care Discharge Diagnosis: Sepsis, Pyelo, RENEE Referrals: [place],[facility] [Primary Care Provider] - 1 Week Discharge Medications: New cefuroxime axetil 500 mg tablet 500 mg PO BID 10 Days Qty: 20 0RF oxycodone 5 mg tablet 5 mg PO Q6H PRN (Reason: pain (scale score 7-10)) Qty: 10 0RF Continued Lantus U-100 Insulin 100 unit/mL Solution 50 unit SUBCUT BEDTIME metformin 1,000 mg Tablet 1,000 mg PO BID multivitamin Tablet 1 tab PO DAILY gabapentin 300 mg Capsule 300 mg PO BID No Action levofloxacin 750 mg tablet 750 mg PO DAILY Qty: 5 0RF ondansetron 4 mg tablet,disintegrating 4 mg PO Q8H PRN (Reason: nausea and vomiting) Qty: 10 0RF naproxen 500 mg tablet 500 mg PO BID PRN (Reason: pain) Qty: 20 0RF Discharge Orders: Discharge Order (Routine); Ordered 08/13/21 Ordered By: Omkar Pete Activity on Discharge: As tolerated Stand Alone Forms: Patient Portal Discharge page Care Plan Goals: Full recovery from sepsis Health Concerns: Sepsis, pyelonephritis, UTI. Plan of Treatment: Take Ceftin as directed and follow up with her primary care doctor within a week Osteo primary care doctor to repeat a CT scan of the abdomen in the future to reassess the lymph node. Assessment: As above Discharge Date/Time: 08/13/21 15:42
[2021-08-13] MEDS: Multivitamin TABLET 1 TAB PO (11:18)
[2021-08-13 11:23] LABS: Glucose, Whole Blood 183 mg/dL (60-115)
[2021-08-13 11:40] VITALS: BP 140/90; PULSE 84; RESP 20; TEMP 36; O2SAT 97
[2021-08-13] MEDS: Insulin Lispro 100 UNIT/ML 3 ML VIAL SUBCUT (12:53)
[2021-08-13] MEDS: Potassium Chloride Packet 20 MEQ PACKET 40 MEQ PO (12:53)
--- NOTE | 2021-08-13 14:45 | MHC.CM.PN ---
PT WILL DC HOME TODAY WITH NO SERVICES
[2021-08-13 15:07] VITALS: BP 142/82; PULSE 91; RESP 14; TEMP 35.9; O2SAT 98
== END 2021-08-13 15:42 | disposition home or self-care (01) | DRG 720 ==
LOC: HO.ED 23:36 → HO.EDOVER 08-08 00:04 → HO.IMC 08-08 14:55
PROVIDERS: Internal Medicine; Admitting Provider Hospitalist; Emergency Provider Emergency Medicine; Visit Provider Internal Medicine
DX: A41.9 Sepsis, unspecified organism (principal); N17.9 Acute kidney failure, unspecified; E11.649 Type 2 diabetes mellitus with hypoglycemia without coma; N13.6 Pyonephrosis; E87.6 Hypokalemia; E86.0 Dehydration; E11.65 Type 2 diabetes mellitus with hyperglycemia; E87.1 Hypo-osmolality and hyponatremia; J45.909 Unspecified asthma, uncomplicated; N39.0 Urinary tract infection, site not specified; Z20.822 Contact with and (suspected) exposure to COVID-19; Z79.4 Long term (current) use of insulin; Z79.84 Long term (current) use of oral hypoglycemic drugs; Z79.899 Other long term (current) drug therapy
CPT/HCPCS: 36415; 74176; 76775; 80048; 80053; 81001; 82947; 83690; 85025; 85027; 87040; 87086; 87502; 87635; 96361; 96374; 96375; 99285; 99291; J0696; J1170; J1650; J1956; J2405; J2550

== ENCOUNTER 2021-09-23 13:44 | Emergency (ER) | payer MEDICAID, SELFPAY ==
--- NOTE | ~2021-09-23 | XR_ITS ---
EXAMINATION: XR CHEST CLINICAL INFORMATION: Shortness of breath. COMPARISON: 10/20/2020 chest radiograph. TECHNIQUE: 2 views of the chest were obtained. FINDINGS: No significant abnormality is noted involving the heart, lungs, mediastinum, bony thorax or soft tissues. XR/XR chest 2V IMPRESSION: No acute cardiopulmonary process.
--- NOTE | ~2021-09-23 | CT_ITS ---
EXAMINATION: CT ABDOMEN AND PELVIS WITHOUT CONTRAST CLINICAL INFORMATION: Right flank pain. COMPARISON: CT of the abdomen and pelvis done on 08/11/2021. TECHNIQUE: Multidetector volumetric imaging was performed from the superior aspect of the liver through the pubic symphysis. Sagittal and coronal reformatted images were obtained on the technologist's workstation. This CT examination was performed using dose optimization techniques as appropriate, variously including the following: *Automated exposure control *Adjustment of mA and/or kV according to patient size (this includes techniques or standardized protocols for targeted exams where dose is matched to indication/reason for exam; i.e. extremities or head) *Use of iterative reconstruction technique DLP: 506 mGy-cm FINDINGS: LUNG BASES: The visualized lung bases are unremarkable. Interval resolution of previously documented trace bilateral pleural effusions. LIVER, GALLBLADDER, AND BILIARY TREE: The liver is normal in size, shape, and attenuation. No focal hepatic lesion or biliary ductal dilatation is present. The gallbladder is unremarkable with no evidence of radiopaque gallstones, gallbladder wall thickening, or obvious pericholecystic inflammatory changes. PANCREAS: Unremarkable. SPLEEN: Unremarkable. A few punctate calcified granulomas are noted. ADRENAL GLANDS: Unremarkable. KIDNEYS AND URETERS: The kidneys are normal in size, shape, and attenuation. No hydronephrosis, hydroureter, or calculi seen. No perinephric stranding. Intrarenal vascular calcifications are present bilaterally. BLADDER: Unremarkable. GASTROINTESTINAL TRACT: The small and large bowel are unremarkable. Nonvisualized appendix without any inflammatory changes around the cecum, unchanged. ABDOMINAL WALL: No significant hernia is appreciated. LYMPH NODES: There are no pathologically enlarged retroperitoneal, mesenteric, pelvic and/or inguinal lymphadenopathy present. VASCULAR: Significant vasculopathy is present involving the aortic branches and medium-sized arteries. PELVIC VISCERA: There is no pelvic mass present. No evidence of any free fluid and/or free air. OSSEOUS STRUCTURES: Moderate diffuse osteopenia. CT/CT abdomen pelvis wo con IMPRESSION: No CT evidence of any acute intra-abdominal and/or intrapelvic pathology is present. Compared to prior study dated 08/11/2021, previously identified bilateral trace pleural effusions are noted along the visualized. Significant vasculopathy is present involving the aortic branches as well as medium-sized arteries including bilateral intrarenal vascular calcifications. Fleischner guidelines were followed.
[2021-09-23 14:01] VITALS: BP 112/68; PULSE 95; RESP 18; TEMP 37.1; O2SAT 99; BMI 25.7
[2021-09-23 14:50] LABS: MANUAL DIFF FLAG NO
[2021-09-23 14:52] LABS: Basophils Absolute Auto 0.1 X10*3/uL (0.0-0.2); Basophils Percent Auto 0.4 % (0-2); Eosinophils Absolute Auto 0.4 X10*3/uL (0.0-0.4); Eosinophils Percent Auto 3.4 % (0-4); Hematocrit 37.2 % (37.0-47.0); Hemoglobin 11.9 g/dl (12.0-16.0); Imm Gran Abs Auto 0.03 X10*3/uL (0.00-0.03); Imm Gran Pct Auto 0.2 % (0.0-0.4); Lymphocytes Absolute Auto 3.8 X10*3/uL (1.2-4.9); Lymphocytes Percent Auto 29.2 % (20-40); Mean Corpuscular Hemoglobin 25.2 pg (27.0-33.0); Mean Corpuscular Volume 78.8 fL (80.0-98.0); Mean Platelet Volume 9.9 fL (9.4-12.3); Monocytes Absolute Auto 0.7 X10*3/uL (0.1-1.2); Monocytes Percent Auto 5.4 % (2-11); Neutrophils Percent Auto 61.4 % (45-73); Platelet Count 488 X10*3/uL (160-400); Red Blood Count 4.72 X10*6/uL (4.20-5.50); Red Cell Distribution Width 15.4 % (11.0-16.0)
[2021-09-23] MEDS: 0.9 % Sodium Chloride 1,000 ML 999 ML IVCONT ×2 (15:03→17:44)
[2021-09-23] MEDS: fentaNYL citrate/PF 100 MCG/2 ML VIAL 50 MCG IVPUSH (15:04)
[2021-09-23] MEDS: ondansetron HCL 4 MG/2 ML VIAL IVPUSH (15:04)
[2021-09-23 15:08] LABS: Lactic Acid 1.4 mmol/L (0.5-2.0)
[2021-09-23 15:16] LABS: Alanine Aminotransferase 22 U/L (0-31); Alkaline Phosphatase 132 U/L (39-117); Anion Gap 17 (12-20); Aspartate Amino Transferase 23 U/L (5-31); Bilirubin Direct < 0.2 mg/dL (0.0-0.5); Bilirubin Total 0.3 mg/dL (0.0-1.0); Blood Urea Nitrogen 34 mg/dL (9-16); Calcium 10.3 mg/dL (8.4-10.2); Carbon Dioxide 21 mmol/L (22-29); Chloride 103 mmol/L (96-108); Creatinine Clr Calc Pharmacy 48.6; Estimated Glomerular Filt Rate 42; Glucose Random 151 mg/dL (60-115); Magnesium 2.4 mg/dL (1.6-2.6); Potassium 5.1 mmol/L (3.3-5.1); Sodium 136 mmol/L (135-145); Total Protein 9.2 g/dL (6.5-8.0)
--- NOTE | 2021-09-23 15:18 | ED_ITS ---
HPI - General Adult General Chief complaint: Weakness Stated complaint: Sepsis? Low blood pressure sent by [facility] Time Seen by Provider: 09/23/21 14:13 Source: patient and old records reviewed Mode of arrival: ambulatory Limitations: no limitations and altered mental status History of Present Illness HPI narrative: This is a 46-year-old female, with a past medical history of diabetes, anxiety, and depression, in recent hospitalization (08-07-2021) for pyelonephritis with sepsis , who presents today with complaints of nausea, vomiting, chills, and right flank pain x 1 month. She states that she completed the 10 day course of Ceftin, and two days after completing the antibiotics, she developed her symptoms again. She states that her symptoms feel similar to the way she felt with pyelonephritis and sepsis she has had. She states that her primary care physician left the practice and had to wait until today to be seen in the office for an appointment. She reports urinary urgency, denies any dysuria, hematuria, urinary frequency, or fevers. MD complaint: right flank pain Onset (ago): week(s) Location: back Radiation: abdomen Severity: severe Severity scale (1-10): >10 Quality: stabbing Pain Consistency: constant Relieving factors: none Exacerbating factors: movement Associated symptoms: headaches, loss of appetite, malaise, nausea/vomiting and weakness Treatments prior to arrival: none Related Data Home Medications Medication Instructions Recorded Confirmed gabapentin 300 mg capsule 300 mg PO BID 08/08/21 08/08/21 insulin glargine 100 unit/mL 50 unit subcut BEDTIME 08/08/21 08/08/21 subcutaneous solution (Lantus U-100 Insulin) metformin 1,000 mg tablet 1,000 mg PO BID 08/08/21 08/08/21 multivitamin 1 tab PO DAILY 08/08/21 08/08/21 Previous Rx's Medication Instructions Recorded cefuroxime axetil 500 mg tablet 500 mg PO BID 10 days #20 tabs 08/13/21 oxycodone 5 mg tablet 5 mg PO Q6H PRN pain (scale score 08/13/21 7-10) #10 tabs levofloxacin 750 mg tablet 750 mg PO DAILY #5 tabs 09/23/21 naproxen 500 mg tablet 500 mg PO BID PRN pain #20 tabs 09/23/21 ondansetron 4 mg disintegrating 4 mg PO Q8H PRN nausea and 09/23/21 tablet vomiting #10 tabs Allergies Allergy/AdvReac Type Severity Reaction Status Date / Time No Known Allergies Allergy Mild NONE Verified 10/20/20 15:13 Review of Systems 2 Review of Systems: Constitutional: No Fever, No Chills ENT/Mouth: No sore throat, No Rhinorrhea, No Swallowing Difficulty Cardiovascular: No Chest Pain, No SOB, No Orthopnea, No Edema Respiratory: No Cough, No Sputum, No Wheezing, No dyspnea Gastrointestinal: + Nausea, No Vomiting, No Diarrhea, + abdominal Pain, No Hematochezia, No Melena Genitourinary: No Dysuria, + Urinary Frequency, No Hematuria Musculoskeletal: No joint pain, No Myalgias Skin: No Skin Lesions, No rash Neuro: + Weakness, No Numbness, No Dizziness, + Headache Psych: No Anxiety/Panic, No Depression Heme/Lymph: No Bruising, No Lymphadenopathy Endocrine: No Polyuria, No Polydipsia PMFSH Past Medical History Medical History 23-polyvalent pneumococcal polysaccharide vaccine indication of diabetes in patient 6 to 64 years of age Asthma Social History Social History Household Members: Family Housing: Apartment Do you presently have visiting nurse or other home services: No Patient Tobacco Use Status: Never used Tobacco Advance Directives: No Advance Directives Information Provided: Yes service: No Current occupational status: employed Physical Exam ED Vital Signs: Vital Signs - 24 hr 09/23/21 14:01 09/23/21 17:11 09/23/21 19:34 Temperature 98.7 F 98.0 F 98.3 F Pulse Rate 95 83 90 Respiratory Rate 18 16 16 Blood Pressure 112/68 112/77 152/93 H Pulse Oximetry 99 99 97 Oxygen Delivery Method Room Air Room Air Room Air BMI result Body Mass Index 25.7 Appearance: Alert. Oriented X3. Appears uncomfortable and in pain Eyes: Pupils equal, round and reactive to light. ENT: Pharynx normal. Neck: Normal inspection. Neck supple. CVS: Normal heart rate and rhythm. Pulses normal. Respiratory: No respiratory distress. Breath sounds normal. Abdomen: Soft with suprapubic tenderness withotu rebound or guarding, +CVA tenderness on the right. normal +BS x4 Skin: Skin warm and dry. Normal skin color. Normal skin turgor. No rashes. Extremities: No lower extremity edema. Neuro: Oriented X 3. No motor deficit. No sensory deficit. Course Course Course Narrative: 46-year-old female presents to the ER for evaluation of right-sided flank pain and suprapubic pain that have been present for the last 1 month. She was recently admitted here and treated for pyelonephritis in the end of July. She was at her doctor's office today and found to be hypotensive 80/60 with heart rate 130. She was sent to the ER for further evaluation. On arrival to the ER patient is hemodynamically stable and afebrile. She is in reported 10/10 pain. She has CVA tenderness and suprapubic tenderness on examination. Concern for possible pyelonephritis. Will get CT scan, lab workup, blood cultures, urinalysis and reassess. Will give her IV fluids, fentanyl, and Zofran. Will cover for possible pyelonephritis with levofloxacin. Will reassess. Reevaluation(s) Reevaluation #1: Lab workup shows no leukocytosis. CT scan of her abdomen does not show any perinephric stranding, no kidney stones. No acute intra abdominal pathology. Her urinalysis is still pending. She received 2 L of IV fluids and is still complaining of pain in the right flank area. IV Toradol has been ordered. Possible musculoskeletal etiology. Reevaluation #2: UA is consistent with infection. Will continue Levaquin. Will also give NSAID and Zofran for pain control. She is tolerating p.o., she ate some [employer] that her daughter brought in. She is stable for discharge home with oral antibiotics and outpatient follow-up. Return precautions were discussed. Medical Decision Making Lab Data Result diagrams: 09/23/21 14:45 09/23/21 14:45 Labs: Lab Results 09/23/21 09/23/21 09/23/21 Range/Units 14:41 14:44 14:45 WBC 13.0 H (4.8-10.8) X10*3/uL RBC 4.72 D (4.20-5.50) X10*6/uL Hgb 11.9 L D (12.0-16.0) g/dl Hct 37.2 D (37.0-47.0) % MCV 78.8 L (80.0-98.0) fL MCH 25.2 L (27.0-33.0) pg MCHC 32.0 (31.0-35.0) g/dl RDW 15.4 (11.0-16.0) % Plt Count 488 H (160-400) X10*3/uL MPV 9.9 (9.4-12.3) fL Immature Gran % (Auto) 0.2 (0.0-0.4) % Neut % (Auto) 61.4 (45-73) % Lymph % (Auto) 29.2 (20-40) % [place] % (Auto) 5.4 (2-11) % Eos % (Auto) 3.4 (0-4) % Baso % (Auto) 0.4 (0-2) % Lymph # (Auto) 3.8 (1.2-4.9) X10*3/uL [place] # (Auto) 0.7 (0.1-1.2) X10*3/uL Eos # (Auto) 0.4 (0.0-0.4) X10*3/uL Baso # (Auto) 0.1 (0.0-0.2) X10*3/uL Abs Immat Gran (auto) 0.03 (0.00-0.03) X10*3/uL Absolute Neuts (auto) 8.0 (2.0-8.3) x10*3/uL Absolute Nucleated RBC 0.000 (0.0-0.012) X10*3/uL Nucleated RBC % (auto) 0.0 (0.0-0.2) /100WBC Sodium (135-145) mmol/L Potassium (3.3-5.1) mmol/L Chloride (96-108) mmol/L Carbon Dioxide (22-29) mmol/L Anion Gap (12-20) BUN (9-16) mg/dL Creatinine (0.5-1.4) mg/dL Estim Creat Clear Calc Estimated GFR Random Glucose (60-115) mg/dL Lactic Acid 1.4 (0.5-2.0) mmol/L Calcium (8.4-10.2) mg/dL Magnesium (1.6-2.6) mg/dL Total Bilirubin (0.0-1.0) mg/dL Direct Bilirubin (0.0-0.5) mg/dL AST (5-31) U/L ALT (0-31) U/L Alkaline Phosphatase (39-117) U/L Total Protein (6.5-8.0) g/dL Albumin (3.5-5.0) g/dL Lipase (8-78) U/L Urine Color Urine Appearance Urine pH (5.0-8.0) Ur Specific [place] (1.005-1.025) Urine Protein (NEG-TRACE) MG/DL Urine Glucose (UA) (NEG) MG/DL Urine Ketones (NEG) MG/DL Urine Blood (NEG) Urine Nitrite (NEG) Ur Leukocyte Esterase (NEG) Urine RBC (0) /HPF Urine WBC (0-4) /HPF Ur Squamous Epith Cells /LPF Urine Bacteria /LPF COVID-19 (DOV) Negative (Negative) COVID-19 Clin Com See Note 09/23/21 09/23/21 Range/Units 14:45 20:25 WBC (4.8-10.8) X10*3/uL RBC (4.20-5.50) X10*6/uL Hgb (12.0-16.0) g/dl Hct (37.0-47.0) % MCV (80.0-98.0) fL MCH (27.0-33.0) pg MCHC (31.0-35.0) g/dl RDW (11.0-16.0) % Plt Count (160-400) X10*3/uL MPV (9.4-12.3) fL Immature Gran % (Auto) (0.0-0.4) % Neut % (Auto) (45-73) % Lymph % (Auto) (20-40) % [place] % (Auto) (2-11) % Eos % (Auto) (0-4) % Baso % (Auto) (0-2) % Lymph # (Auto) (1.2-4.9) X10*3/uL [place] # (Auto) (0.1-1.2) X10*3/uL Eos # (Auto) (0.0-0.4) X10*3/uL Baso # (Auto) (0.0-0.2) X10*3/uL Abs Immat Gran (auto) (0.00-0.03) X10*3/uL Absolute Neuts (auto) (2.0-8.3) x10*3/uL Absolute Nucleated RBC (0.0-0.012) X10*3/uL Nucleated RBC % (auto) (0.0-0.2) /100WBC Sodium 136 (135-145) mmol/L Potassium 5.1 D (3.3-5.1) mmol/L Chloride 103 (96-108) mmol/L Carbon Dioxide 21 L (22-29) mmol/L Anion Gap 17 (12-20) BUN 34 H D (9-16) mg/dL Creatinine 1.37 (0.5-1.4) mg/dL Estim Creat Clear Calc 48.6 Estimated GFR 42 Random Glucose 151 H (60-115) mg/dL Lactic Acid (0.5-2.0) mmol/L Calcium 10.3 H D (8.4-10.2) mg/dL Magnesium 2.4 (1.6-2.6) mg/dL Total Bilirubin 0.3 (0.0-1.0) mg/dL Direct Bilirubin < 0.2 (0.0-0.5) mg/dL AST 23 (5-31) U/L ALT 22 (0-31) U/L Alkaline Phosphatase 132 H (39-117) U/L Total Protein 9.2 H (6.5-8.0) g/dL Albumin 5.0 D (3.5-5.0) g/dL Lipase 66 (8-78) U/L Urine Color YELLOW Urine Appearance CLOUDY Urine pH 5.5 (5.0-8.0) Ur Specific [place] 1.020 (1.005-1.025) Urine Protein NEG (NEG-TRACE) MG/DL Urine Glucose (UA) NEG (NEG) MG/DL Urine Ketones NEG (NEG) MG/DL Urine Blood TRACE (NEG) Urine Nitrite NEG (NEG) Ur Leukocyte Esterase 1+ H (NEG) Urine RBC 0-2 (0) /HPF Urine WBC 10-14 H (0-4) /HPF Ur Squamous Epith Cells 4+ /LPF Urine Bacteria 4+ /LPF COVID-19 (DOV) (Negative) COVID-19 Clin Com Discharge Plan Discharge Clinical Impression: Acute lower UTI Patient Disposition: Home, Self-Care Instructions: Urinary Tract Infection in Women (ED) Additional Instructions: Your lab workup today showed signs of dehydration. Your urine test showed signs of infection. Your CT scan was normal and did not show a kidney infection. Recommend taking the prescribed antibiotic as directed - start tomorrow morning. Take the prescribed anti-inflammatory pain medication as needed for pain. Rest and drink plenty of fluids. Follow up with your doctor next week. If you develop new or worsening symptoms call 911 or come back to the ER for further evaluation. Prescriptions: New levofloxacin 750 mg tablet 750 mg PO DAILY Qty: 5 0RF ondansetron 4 mg tablet,disintegrating 4 mg PO Q8H PRN (Reason: nausea and vomiting) Qty: 10 0RF naproxen 500 mg tablet 500 mg PO BID PRN (Reason: pain) Qty: 20 0RF No Action Lantus U-100 Insulin 100 unit/mL Solution 50 unit SUBCUT BEDTIME metformin 1,000 mg Tablet 1,000 mg PO BID multivitamin Tablet 1 tab PO DAILY gabapentin 300 mg Capsule 300 mg PO BID cefuroxime axetil 500 mg tablet 500 mg PO BID 10 Days Qty: 20 0RF oxycodone 5 mg tablet 5 mg PO Q6H PRN (Reason: pain (scale score 7-10)) Qty: 10 0RF
[2021-09-23 15:24] LABS: COVID-19 Test Negative (Negative)
[2021-09-23] MEDS: levoFLOXacin/D5W 750 MG/150 ML PIGGYBACK 100 MG IV (15:46)
[2021-09-23 17:11] VITALS: BP 112/77; PULSE 83; RESP 16; TEMP 36.7; O2SAT 99
[2021-09-23 17:50] LABS: Lipase 66 U/L (8-78)
[2021-09-23 19:34] VITALS: BP 152/93; PULSE 90; RESP 16; TEMP 36.8; O2SAT 97
[2021-09-23 20:36] LABS: Appearance Urine CLOUDY; Color Urine YELLOW; Glucose Urine UA NEG (NEG); Leukocyte Esterase Urine 1+ (NEG); Nitrite Urine NEG (NEG); PH 5.5 (5.0-8.0); UACC Culture Trigger YES; Urine Blood TRACE (NEG); Urine Ketones NEG (NEG); Urine Protein NEG (NEG-TRACE)
[2021-09-23] MEDS: Ketorolac Tromethamine 30 MG/ML VIAL IVPUSH (20:38)
[2021-09-23 20:42] LABS: Bacteria Urine 4+ /LPF; RBC Urine 0-2 /HPF (0); Squamous Epithelial Cell Urine 4+ /LPF
[2021-09-23 21:11] VITALS: BP 113/68; PULSE 86; RESP 18; TEMP 36.9; O2SAT 99
== END 2021-09-23 21:12 | disposition home or self-care (01) ==
PROVIDERS: Physician Assistant; Emergency Provider Emergency Medicine
DX: N39.0 Urinary tract infection, site not specified (principal); R10.9 Unspecified abdominal pain; Z20.822 Contact with and (suspected) exposure to COVID-19; R11.2 Nausea with vomiting, unspecified; R51.9 Headache, unspecified
CPT/HCPCS: 36415; 71046; 74176; 80048; 80076; 81001; 83605; 83690; 83735; 85025; 87040; 87086; 87635; 96361; 96374; 96375; 99284; J1885; J1956; J2405; J3010

== ENCOUNTER 2021-10-25 12:29 | Emergency (ER) | payer MEDICAID, SELFPAY ==
--- NOTE | ~2021-10-25 | CT_ITS ---
EXAMINATION: CT ABDOMEN AND PELVIS WITH CONTRAST CLINICAL INFORMATION: Abdominal pain. Vomiting, nausea. COMPARISON: CT abdomen and pelvis noncontrast 09/23/[address] abdomen and pelvis with IV contrast 01/10/2019 TECHNIQUE: Multidetector volumetric images were obtained from the superior aspect of the liver through the pubic symphysis following administration 85 mL of Omnipaque 350 intravenous contrast. Additional imaging through the abdomen is performed during the renal excretion phase. Sagittal and coronal reformatted images were obtained on the technologist's workstation. Oral contrast: No This CT examination was performed using dose optimization techniques as appropriate, variously including the following: *Automated exposure control *Adjustment of mA and/or kV according to patient size (this includes techniques or standardized protocols for targeted exams where dose is matched to indication/reason for exam; i.e. extremities or head) *Use of iterative reconstruction technique DLP: 724 mGy-cm FINDINGS: LUNG BASES: The visualized lung bases are unremarkable. LIVER, GALLBLADDER, AND BILIARY TREE: The liver is normal in size, shape, and attenuation. No focal hepatic lesion or biliary ductal dilatation is present. The gallbladder is unremarkable with no evidence of radiopaque gallstones, gallbladder wall thickening, or obvious pericholecystic inflammatory changes. PANCREAS: Unremarkable. SPLEEN: Unremarkable. ADRENAL GLANDS: Unremarkable. KIDNEYS AND URETERS: No hydronephrosis, hydroureter, urinary tract calculi, or perinephric stranding. Kidneys enhance symmetrically. BLADDER: Unremarkable. GASTROINTESTINAL TRACT: No bowel obstruction or focal inflammatory changes in bowel or mesentery. No pneumatosis or free air. No ascites or fluid collection. Appendix not clearly visualized. No inflammatory changes around cecum or terminal ileum. ABDOMINAL WALL: No significant hernia is appreciated. LYMPH NODES: No lymphadenopathy. VASCULAR: Unremarkable. PELVIC VISCERA: Unremarkable. OSSEOUS STRUCTURES: Unremarkable. CT/CT abdomen pelvis w con IMPRESSION: -No inflammatory changes in abdomen or pelvis. No bowel obstruction. -No visible cholelithiasis or biliary ductal dilatation. -No hydronephrosis or perinephric stranding.
--- NOTE | ~2021-10-25 | US_ITS ---
EXAMINATION: US GALLBLADDER CLINICAL INFORMATION: Right upper quadrant pain. COMPARISON: None TECHNIQUE: Real-time imaging of the gallbladder. FINDINGS: GALLBLADDER: The gallbladder is physiologically distended without evidence of stones, polyps, wall thickening or pericholecystic fluid. Some tumefactive sludge is present at the gallbladder fundus COMMON BILE DUCT: Normal in caliber measuring 0.3 cm in diameter. US/US abdomen limited IMPRESSION: Aside from a small amount of sludge present at the fundus of the gallbladder, no other abnormality is seen.
[2021-10-25 12:39] VITALS: BP 122/82; PULSE 98; O2SAT 99
--- NOTE | 2021-10-25 12:44 | ECG_ITS ---
Test Reason : med affect Blood Pressure : / mmHG Vent. Rate : 089 BPM Atrial Rate : 089 BPM P-R Int : 148 ms QRS Dur : 076 ms QT Int : 388 ms P-R-T Axes : 048 -06 049 degrees QTc Int : 472 ms Normal sinus rhythm Normal ECG When compared with ECG of 20-OCT-2020 15:12, No significant change was found Referred By: Lissette Granda Electronically Signed By:RADHA MCKENZIE
[2021-10-25 12:57] VITALS: BP 164/98; PULSE 90; RESP 18; O2SAT 99; BMI 25.7
[2021-10-25 13:11] LABS: MANUAL DIFF FLAG NO
[2021-10-25] MEDS: 0.9 % Sodium Chloride 1,000 ML 999 ML IV (13:11)
[2021-10-25 13:17] LABS: Basophils Percent Auto 0.2 % (0-2); Eosinophils Absolute Auto 0.1 X10*3/uL (0.0-0.4); Eosinophils Percent Auto 0.8 % (0-4); Hematocrit 36.3 % (37.0-47.0); Hemoglobin 11.8 g/dl (12.0-16.0); Imm Gran Abs Auto 0.07 X10*3/uL (0.00-0.03); Imm Gran Pct Auto 0.6 % (0.0-0.4); Lymphocytes Percent Auto 15.9 % (20-40); Mean Corpuscular HGB Conc 32.5 g/dl (31.0-35.0); Mean Corpuscular Hemoglobin 25.6 pg (27.0-33.0); Mean Corpuscular Volume 78.7 fL (80.0-98.0); Mean Platelet Volume 10.1 fL (9.4-12.3); Monocytes Absolute Auto 0.5 X10*3/uL (0.1-1.2); Monocytes Percent Auto 3.8 % (2-11); Neutrophils Absolute Auto 9.8 x10*3/uL (2.0-8.3); Neutrophils Percent Auto 78.7 % (45-73); Platelet Count 369 X10*3/uL (160-400); Red Blood Count 4.61 X10*6/uL (4.20-5.50); Red Cell Distribution Width 14.1 % (11.0-16.0); White Blood Count 12.5 X10*3/uL (4.8-10.8)
--- NOTE | 2021-10-25 13:26 | ED.NAVMDI ---
HPI - Nausea/Vomiting/Diarrhea General Chief complaint: Nausea/Vomiting/Diarrhea Stated complaint: ABDO PAIN/VOMITING Time Seen by Provider: 10/25/21 12:43 Source: patient Mode of arrival: EMS History of Present Illness HPI Narrative: 46-year-old female with presentation of nausea/vomiting as well as abdominal pain since this morning and arrives by ambulance. Patient has past medical history is significant for diabetes but otherwise denies any fever, chills, urinary symptoms. Related Data Home Medications Medication Instructions Recorded Confirmed gabapentin 300 mg capsule 300 mg PO BID 08/08/21 08/08/21 insulin glargine 100 unit/mL 50 unit subcut BEDTIME 08/08/21 08/08/21 subcutaneous solution (Lantus U-100 Insulin) metformin 1,000 mg tablet 1,000 mg PO BID 08/08/21 08/08/21 multivitamin 1 tab PO DAILY 08/08/21 08/08/21 Previous Rx's Medication Instructions Recorded cefuroxime axetil 500 mg tablet 500 mg PO BID 10 days #20 tabs 08/13/21 oxycodone 5 mg tablet 5 mg PO Q6H PRN pain (scale score 08/13/21 7-10) #10 tabs levofloxacin 750 mg tablet 750 mg PO DAILY #5 tabs 09/23/21 naproxen 500 mg tablet 500 mg PO BID PRN pain #20 tabs 09/23/21 ondansetron 4 mg disintegrating 4 mg PO Q8H PRN nausea and 09/23/21 tablet vomiting #10 tabs Allergies Allergy/AdvReac Type Severity Reaction Status Date / Time No Known Allergies Allergy Mild NONE Verified 10/25/21 12:57 Review of Systems Review of Systems: Pertinent positives and negatives as stated in HPI 10 point review of systems is otherwise negative. [facility] Past Medical History Source: nursing notes reviewed Medical History 23-polyvalent pneumococcal polysaccharide vaccine indication of diabetes in patient 6 to 64 years of age Asthma Social History Social History Household Members: Family Housing: Apartment Do you presently have visiting nurse or other home services: No Patient Tobacco Use Status: Never used Tobacco Advance Directives: No Advance Directives Information Provided: No service: No Current occupational status: employed Physical Exam Vital Signs: Vital Signs: Last Vital Signs Pulse 101 H 10/25/21 15:52 Resp 18 10/25/21 15:52 BP 171/87 H 10/25/21 15:52 Pulse Ox 99 10/25/21 15:52 O2 Del Method 10/25/21 15:52 BMI result Body Mass Index 25.7 VITAL SIGNS: Reviewed. GENERAL: Well developed, well nourished, in moderate distress. HEAD: Normocephalic/atraumatic EYES: PERRLA, EOMI EARS: Ext canals without abnormality OROPHARYNX: no oral lesions noted, posterior pharynx clear LUNGS: Normal breath sounds. No adventitious sounds or accessory muscle use. SpO2<99> CARDIOVASCULAR: Regular rate and rhythm without noted murmurs ABDOMEN: Soft, non-tender, non-distended with bowel sounds. MUSCULOSKELETAL: No tenderness, deformities, or effusions noted on gross inspection. EXTREMITIES: No cyanosis, clubbing or edema. SKIN: Inspection of the skin reveals no rashes NEUROLOGIC: Alert and oriented x 4. Strength and sensation to light touch were grossly intact x 4. Course Course Course Narrative: 46-year-old female with history and clinical presentation suggestive of possible gastroenteritis, food poisoning, less likely felt to be SBO or pancreatitis. IV fluids given. Signed out to Dr Derrick MALDONADO - Nausea/Vomiting/Diarrhea Lab Data Result diagrams: 10/25/21 13:06 10/25/21 13:06 Labs: Lab Results 10/25/21 10/25/21 10/25/21 Range/Units 13:06 13:06 16:43 WBC 12.5 H (4.8-10.8) X10*3/uL RBC 4.61 (4.20-5.50) X10*6/uL Hgb 11.8 L (12.0-16.0) g/dl Hct 36.3 L (37.0-47.0) % MCV 78.7 L (80.0-98.0) fL MCH 25.6 L (27.0-33.0) pg MCHC 32.5 (31.0-35.0) g/dl RDW 14.1 (11.0-16.0) % Plt Count 369 (160-400) X10*3/uL MPV 10.1 (9.4-12.3) fL Immature Gran % (Auto) 0.6 H (0.0-0.4) % Neut % (Auto) 78.7 H (45-73) % Lymph % (Auto) 15.9 L (20-40) % [place] % (Auto) 3.8 (2-11) % Eos % (Auto) 0.8 (0-4) % Baso % (Auto) 0.2 (0-2) % Lymph # (Auto) 2.0 (1.2-4.9) X10*3/uL [place] # (Auto) 0.5 (0.1-1.2) X10*3/uL Eos # (Auto) 0.1 (0.0-0.4) X10*3/uL Baso # (Auto) 0.0 (0.0-0.2) X10*3/uL Abs Immat Gran (auto) 0.07 H (0.00-0.03) X10*3/uL Absolute Neuts (auto) 9.8 H (2.0-8.3) x10*3/uL Absolute Nucleated RBC 0.000 (0.0-0.012) X10*3/uL Nucleated RBC % (auto) 0.0 (0.0-0.2) /100WBC Sodium 136 (135-145) mmol/L Potassium 4.6 (3.3-5.1) mmol/L Chloride 102 (96-108) mmol/L Carbon Dioxide 20 L (22-29) mmol/L Anion Gap 19 (12-20) BUN 31 H (9-16) mg/dL Creatinine 1.39 (0.5-1.4) mg/dL Estim Creat Clear Calc 47.9 Estimated GFR 41 Random Glucose 380 H* (60-115) mg/dL Calcium 9.9 (8.4-10.2) mg/dL Total Bilirubin 0.3 (0.0-1.0) mg/dL AST 18 (5-31) U/L ALT 14 (0-31) U/L Alkaline Phosphatase 122 H (39-117) U/L Total Protein 8.3 H (6.5-8.0) g/dL Albumin 4.7 (3.5-5.0) g/dL Beta HCG, Quant 8 mIU/mL Urine Color YELLOW Urine Appearance HAZY Urine pH 5.5 (5.0-8.0) Ur Specific [place] 1.025 (1.005-1.025) Urine Protein 1+ H (NEG-TRACE) MG/DL Urine Glucose (UA) >=1000 H (NEG) MG/DL Urine Ketones 40 (NEG) MG/DL Urine Blood 1+ H (NEG) Urine Nitrite NEG (NEG) Ur Leukocyte Esterase NEG (NEG) Urine Test (NEGATIVE) Acetone, Qual Negative (Negative) 10/25/21 Range/Units 16:43 WBC (4.8-10.8) X10*3/uL RBC (4.20-5.50) X10*6/uL Hgb (12.0-16.0) g/dl Hct (37.0-47.0) % MCV (80.0-98.0) fL MCH (27.0-33.0) pg MCHC (31.0-35.0) g/dl RDW (11.0-16.0) % Plt Count (160-400) X10*3/uL MPV (9.4-12.3) fL Immature Gran % (Auto) (0.0-0.4) % Neut % (Auto) (45-73) % Lymph % (Auto) (20-40) % [place] % (Auto) (2-11) % Eos % (Auto) (0-4) % Baso % (Auto) (0-2) % Lymph # (Auto) (1.2-4.9) X10*3/uL [place] # (Auto) (0.1-1.2) X10*3/uL Eos # (Auto) (0.0-0.4) X10*3/uL Baso # (Auto) (0.0-0.2) X10*3/uL Abs Immat Gran (auto) (0.00-0.03) X10*3/uL Absolute Neuts (auto) (2.0-8.3) x10*3/uL Absolute Nucleated RBC (0.0-0.012) X10*3/uL Nucleated RBC % (auto) (0.0-0.2) /100WBC Sodium (135-145) mmol/L Potassium (3.3-5.1) mmol/L Chloride (96-108) mmol/L Carbon Dioxide (22-29) mmol/L Anion Gap (12-20) BUN (9-16) mg/dL Creatinine (0.5-1.4) mg/dL Estim Creat Clear Calc Estimated GFR Random Glucose (60-115) mg/dL Calcium (8.4-10.2) mg/dL Total Bilirubin (0.0-1.0) mg/dL AST (5-31) U/L ALT (0-31) U/L Alkaline Phosphatase (39-117) U/L Total Protein (6.5-8.0) g/dL Albumin (3.5-5.0) g/dL Beta HCG, Quant mIU/mL Urine Color Urine Appearance Urine pH (5.0-8.0) Ur Specific [place] (1.005-1.025) Urine Protein (NEG-TRACE) MG/DL Urine Glucose (UA) (NEG) MG/DL Urine Ketones (NEG) MG/DL Urine Blood (NEG) Urine Nitrite (NEG) Ur Leukocyte Esterase (NEG) Urine Test NEGATIVE (NEGATIVE) Acetone, Qual (Negative) ECG Data Attestation: I personally reviewed and interpreted this ECG as follows: Prior ECG tracings: available for review Interpretation: NSR, HR-89, no STEMI, NE/QRS/QTC is within normal limits. Discharge Plan Discharge Clinical Impression: Dehydration, Gastroenteritis Patient Disposition: Still a Patient Prescriptions: No Action Lantus U-100 Insulin 100 unit/mL Solution 50 unit SUBCUT BEDTIME metformin 1,000 mg Tablet 1,000 mg PO BID multivitamin Tablet 1 tab PO DAILY gabapentin 300 mg Capsule 300 mg PO BID cefuroxime axetil 500 mg tablet 500 mg PO BID 10 Days Qty: 20 0RF oxycodone 5 mg tablet 5 mg PO Q6H PRN (Reason: pain (scale score 7-10)) Qty: 10 0RF levofloxacin 750 mg tablet 750 mg PO DAILY Qty: 5 0RF ondansetron 4 mg tablet,disintegrating 4 mg PO Q8H PRN (Reason: nausea and vomiting) Qty: 10 0RF naproxen 500 mg tablet 500 mg PO BID PRN (Reason: pain) Qty: 20 0RF
[2021-10-25 13:51] LABS: Alanine Aminotransferase 14 U/L (0-31); Albumin Level 4.7 g/dL (3.5-5.0); Alkaline Phosphatase 122 U/L (39-117); Anion Gap 19 (12-20); Aspartate Amino Transferase 18 U/L (5-31); Bilirubin Total 0.3 mg/dL (0.0-1.0); Blood Urea Nitrogen 31 mg/dL (9-16); Calcium 9.9 mg/dL (8.4-10.2); Carbon Dioxide 20 mmol/L (22-29); Chloride 102 mmol/L (96-108); Creatinine Clr Calc Pharmacy 47.9; Estimated Glomerular Filt Rate 41; Glucose Random 380 mg/dL (60-115); Potassium 4.6 mmol/L (3.3-5.1); Sodium 136 mmol/L (135-145); Total Protein 8.3 g/dL (6.5-8.0)
[2021-10-25] MEDS: ondansetron HCL 4 MG/2 ML VIAL IVPUSH (13:53)
[2021-10-25 14:36] LABS: Acetone, serum QL Negative (Negative)
[2021-10-25] MEDS: Prochlorperazine Edisylate 10 MG/2 ML VIAL IVPUSH (15:34)
[2021-10-25 15:49] LABS: HCG Quantitative 8 mIU/mL
[2021-10-25 15:52] VITALS: BP 171/87; PULSE 101; RESP 18; O2SAT 99
[2021-10-25] MEDS: iohexoL 350 MG/ML 100 ML INFUS..BTL IV (16:37)
[2021-10-25 16:55] LABS: Appearance Urine HAZY; Color Urine YELLOW; Glucose Urine UA >=1000 MG/DL (NEG); Leukocyte Esterase Urine NEG (NEG); Nitrite Urine NEG (NEG); PH 5.5 (5.0-8.0); Specific Gravity - Urine 1.025 (1.005-1.025); UACC Culture Trigger NO; Urine Blood 1+ (NEG); Urine Ketones 40 MG/DL (NEG); Urine Protein 1+ MG/DL (NEG-TRACE)
[2021-10-25 16:57] LABS: UPreg QC Valid YES; Urine Pregnancy NEGATIVE (NEGATIVE)
[2021-10-25 17:24] LABS: Bacteria Urine 3+ /LPF; Squamous Epithelial Cell Urine 1+ /LPF; UACC CULT YES
[2021-10-25] MEDS: Pantoprazole Sodium 40 MG/10 ML VIAL IVPUSH (17:35)
[2021-10-25] MEDS: diphenhydrAMINE HCL 50 MG/ML VIAL 25 MG IVPUSH (17:35)
[2021-10-25] MEDS: Metoclopramide HCl 10 MG/2 ML VIAL IVPUSH (17:36)
[2021-10-25 18:55] VITALS: BP 173/107; PULSE 104; RESP 16; O2SAT 100
[2021-10-25] MEDS: Ondansetron ODT 4 MG TAB.RAPDIS TRANSLINGU (21:08)
--- NOTE | 2021-10-25 21:13 | PC.NURSE ---
Medicated pt per May. Reviewed discharge instructions with pt. pt verbalized understanding.
== END 2021-10-25 21:13 | disposition home or self-care (01) ==
PROVIDERS: Student in an Organized Health Care Education/Training Program; Emergency Provider Emergency Medicine
DX: E86.0 Dehydration (principal); K52.9 Noninfective gastroenteritis and colitis, unspecified; R11.2 Nausea with vomiting, unspecified; E11.9 Type 2 diabetes mellitus without complications; Z79.4 Long term (current) use of insulin
CPT/HCPCS: 36415; 74177; 76705; 80053; 81001; 81025; 82009; 84702; 85025; 87086; 93005; 96361; 96374; 96375; 99285; J1200; J2405; J2765; Q9967

== ENCOUNTER 2021-11-09 15:13 | Outpatient (REF) | payer MEDICAID, SELFPAY ==
--- NOTE | ~2021-11-09 | XR_ITS ---
EXAMINATION: XR RIBS, RIGHT WITH PA CHEST CLINICAL INFORMATION: Chest pain. COMPARISON: Chest radiographs dated 09/23/2021. TECHNIQUE: 3 views of the right ribs were obtained, together with a PA view of the chest. FINDINGS: Lungs are clear. No consolidation, pneumothorax or pleural effusion. There is mild bilateral lower lung field linear scar/subsegmental atelectasis. A 4 mm right upper lobe nodule is seen, stable from prior examinations including 04/05/2015. The cardiomediastinal silhouette and pulmonary vasculature are normal. Osseous structures are unremarkable. Ribs are intact. No fractures are identified. XR/XR ribs RT min 3V w CXR1V IMPRESSION: 1. No rib fracture is seen. There is no pleural effusion or pneumothorax. 2. There is mild bilateral lower lung field linear scar/subsegmental atelectasis. This is stable from multiple prior examinations. 3. There is a benign, stable right upper lobe nodule.
== END 2021-11-09 15:14 | disposition home or self-care (01) ==
LOC: HO.XRAY 15:13
PROVIDERS: Absent Provider General Practice; PCP General Practice; Visit Provider Internal Medicine
DX: R07.89 Other chest pain (principal)
CPT/HCPCS: 71101

== ENCOUNTER 2022-01-04 22:05 | Inpatient (IN) | payer MEDICAID, SELFPAY ==
--- NOTE | ~2022-01-04 | US_ITS ---
EXAMINATION: US ABDOMEN LIMITED CLINICAL INFORMATION: Rule out cholecystitis. COMPARISON: CT scan dated November 04, 2021. TECHNIQUE: Real-time imaging of the right upper quadrant abdominal viscera. FINDINGS: PANCREAS: Head and body appear unremarkable. Tail not visualized. LIVER: The liver is normal in size. The liver contour is normal. Parenchymal echogenicity is normal. No focal hepatic lesion identified. Intrahepatic ducts upper normal in size. GALLBLADDER: The gallbladder is physiologically distended without evidence of stones, polyps, wall thickening or pericholecystic fluid. Question minimal gallbladder sludge. COMMON BILE DUCT: Normal in caliber measuring 0.7 cm in diameter. RIGHT KIDNEY: Not evaluated. SPLEEN: Measures 10.2 cm. Unremarkable. FREE FLUID: None. US/US abdomen limited IMPRESSION: No acute finding. Question minimal gallbladder sludge.
--- NOTE | ~2022-01-04 | CT_ITS ---
EXAMINATION: CT CHEST WITH CONTRAST CLINICAL INFORMATION: Fall. COMPARISON: CT abdomen/pelvis dated 10/25/2021 TECHNIQUE: Multidetector volumetric CT imaging of the chest was obtained after the administration of 65 mL of Omnipaque 350 intravenous contrast without immediate adverse reactions. Axial MIP volume rendering provided. Sagittal and coronal reformatted images were obtained. This CT examination was performed using dose optimization techniques as appropriate, variously including the following: *Automated exposure control *Adjustment of mA and/or kV according to patient size (this includes techniques or standardized protocols for targeted exams where dose is matched to indication/reason for exam; i.e. extremities or head) *Use of iterative reconstruction technique DLP: 363 mGy-cm FINDINGS: LUNGS: The lungs are clear with no evidence of inflammation or nodules. Bilateral lower lung atelectatic changes. Calcified granuloma, right upper lobe. MEDIASTINUM: Normal heart size. No pericardial effusion. Great vessels normal caliber. No mediastinal or hilar lymphadenopathy. Submucosal edema suspected within the mid and distal esophagus. PLEURA: There is no pleural effusion. No pleural mass or thickening. CHEST WALL/AXILLA: No lymphadenopathy. UPPER ABDOMEN: Hepatic steatosis suspected. OSSEOUS STRUCTURES: No fractures. No suspicious osseous abnormalities. CT/CT chest w IV con IMPRESSION: No acute findings within the chest. No fractures. Hepatic steatosis suspected. Query esophagitis.
--- NOTE | ~2022-01-04 | CT_ITS ---
EXAMINATION: NONCONTRAST HEAD CT NONCONTRAST CERVICAL SPINE CT INDICATION INFORMATION: Status post fall COMPARISON: 09/08/2015 TECHNIQUE: Separate noncontrast CT examinations of the head and cervical spine were performed. Coronal and sagittal images were created for each examination at the technologist workstation. This CT examination was performed using dose optimization techniques as appropriate, variously including the following: *Automated exposure control *Adjustment of mA and/or kV according to patient size (this includes techniques or standardized protocols for targeted exams where dose is matched to indication/reason for exam; i.e. extremities or head) *Use of iterative reconstruction technique DLP: 1095 mGy-cm FINDINGS: Head: There is no evidence of acute intracranial hemorrhage or territorial infarction. No abnormal mass effect or midline shift is seen. [place] to white matter differentiation is well preserved. No extra-axial fluid collections are identified. No hydrocephalus. Cavum septum pellucidum et vergae. No significant volume loss. There is no abnormal attenuation within the brain parenchyma. No acute osseous or soft tissue abnormality. The mastoid air cells and visualized portions of the paranasal sinuses are well aerated. Cervical spine: There is anatomic alignment of the vertebral bodies and posterior elements. The atlantoaxial and atlantooccipital articulations are intact. Vertebral body heights and intervertebral disc spaces are maintained. No evidence of acute fracture. No prevertebral soft tissue swelling. The thyroid gland is unremarkable. CT/CT head/brain wo IV con IMPRESSION: 1. No acute intracranial bleed or territorial infarction. 2. No acute fracture or malalignment of the cervical spine.
--- NOTE | ~2022-01-04 | US_ITS ---
EXAMINATION: US RETROPERITONEAL LIMITED (RENAL ONLY) CLINICAL INFORMATION: Suspect pyelonephritis, rule out renal abscess/emphysematous pyelonephritis. COMPARISON: Renal ultrasound 08/08/2021, CT abdomen and pelvis with contrast 10/25/2021 TECHNIQUE: Real-time imaging of the kidneys. FINDINGS: RIGHT KIDNEY: 11.2 x 5.8 x 5.7 cm (SAG x AP x TRV). The kidney is normal in size, contour, and echogenicity. Renal cortical thickness is normal. No calculi or focal parenchymal lesions. No hydronephrosis. No perinephric fluid. No dirty shadowing to suggest emphysematous changes. LEFT KIDNEY: 10.5 x 5.3 x 4.4 cm (SAG x AP x TRV). The kidney is normal in size, contour, and echogenicity. Renal cortical thickness is normal. No calculi or focal parenchymal lesions. No hydronephrosis. No dirty shadowing to suggest emphysematous changes. US/US renal BI IMPRESSION: 1. No hydronephrosis or perinephric fluid. 2. No dirty shadowing to suggest emphysematous changes.
--- NOTE | ~2022-01-04 | CT_ITS ---
EXAMINATION: NONCONTRAST HEAD CT NONCONTRAST CERVICAL SPINE CT INDICATION INFORMATION: Status post fall COMPARISON: 09/08/2015 TECHNIQUE: Separate noncontrast CT examinations of the head and cervical spine were performed. Coronal and sagittal images were created for each examination at the technologist workstation. This CT examination was performed using dose optimization techniques as appropriate, variously including the following: *Automated exposure control *Adjustment of mA and/or kV according to patient size (this includes techniques or standardized protocols for targeted exams where dose is matched to indication/reason for exam; i.e. extremities or head) *Use of iterative reconstruction technique DLP: 1095 mGy-cm FINDINGS: Head: There is no evidence of acute intracranial hemorrhage or territorial infarction. No abnormal mass effect or midline shift is seen. [place] to white matter differentiation is well preserved. No extra-axial fluid collections are identified. No hydrocephalus. Cavum septum pellucidum et vergae. No significant volume loss. There is no abnormal attenuation within the brain parenchyma. No acute osseous or soft tissue abnormality. The mastoid air cells and visualized portions of the paranasal sinuses are well aerated. Cervical spine: There is anatomic alignment of the vertebral bodies and posterior elements. The atlantoaxial and atlantooccipital articulations are intact. Vertebral body heights and intervertebral disc spaces are maintained. No evidence of acute fracture. No prevertebral soft tissue swelling. The thyroid gland is unremarkable. CT/CT cervical spine wo IV con IMPRESSION: 1. No acute intracranial bleed or territorial infarction. 2. No acute fracture or malalignment of the cervical spine.
[2022-01-04 22:21] VITALS: BP 148/95; BP 89/60; PULSE 101; PULSE 105; RESP 14; TEMP 37.4; O2SAT 99; BMI 24.0
--- NOTE | 2022-01-04 22:21 | ECG_ITS ---
Test Reason : FALL Blood Pressure : / mmHG Vent. Rate : 106 BPM Atrial Rate : 106 BPM P-R Int : 118 ms QRS Dur : 074 ms QT Int : 364 ms P-R-T Axes : 021 -05 061 degrees QTc Int : 483 ms Sinus tachycardia Possible Right atrial enlargement Otherwise normal ECG When compared with ECG of 25-OCT-2021 12:52, No significant change was found Heart rate has increased Referred By: Vin Oakley Electronically Signed By:ANISA MCWILLIAMS MD
[2022-01-04 22:24] LABS: Glucose, Whole Blood 255 mg/dL (60-115)
--- NOTE | 2022-01-04 22:24 | ED.SYNCOPE ---
HPI - Syncope General Chief Complaint: Syncope Stated Complaint: syncopal episode Time Seen by Provider: 01/04/22 22:07 Source: patient and EMS Mode of arrival: EMS Limitations: no limitations History of Present Illness HPI narrative: Patient 46 years old history of diabetes on insulin was not feeling good for last 2- 3 days with nausea missed her insulin last night because of that blood sugar checked at home was 340 earlier today just prior to arrival patient had passed out 3 times does not know what happened 1st time she fell forward broke her front teeth 2nd time her grand daughter caught her and 3rd time she fell and has some pain in the right chest wall, pt does have history of rib fractures in the past on arrival patient's blood sugar was 255 no history of seizures no witnessed seizures MD complaint: loss of consciousness Related Data Home Medications Medication Instructions Recorded Confirmed gabapentin 300 mg capsule 300 mg PO BID 08/08/21 08/08/21 insulin glargine 100 unit/mL 50 unit subcut BEDTIME 08/08/21 08/08/21 subcutaneous solution (Lantus U-100 Insulin) metformin 1,000 mg tablet 1,000 mg PO BID 08/08/21 08/08/21 multivitamin 1 tab PO DAILY 08/08/21 08/08/21 Previous Rx's Medication Instructions Recorded cefuroxime axetil 500 mg tablet 500 mg PO BID 10 days #20 tabs 08/13/21 oxycodone 5 mg tablet 5 mg PO Q6H PRN pain (scale score 08/13/21 7-10) #10 tabs levofloxacin 750 mg tablet 750 mg PO DAILY #5 tabs 09/23/21 naproxen 500 mg tablet 500 mg PO BID PRN pain #20 tabs 09/23/21 ondansetron 4 mg disintegrating 4 mg PO Q8H PRN nausea and 09/23/21 tablet vomiting #10 tabs omeprazole magnesium 20 mg 20 mg PO BID #30 tabs 10/25/21 tablet,delayed release (Prilosec OTC) ondansetron 4 mg disintegrating 4 mg PO Q8-12H PRN nausea and 10/25/21 tablet vomiting #7 tabs Allergies Allergy/AdvReac Type Severity Reaction Status Date / Time No Known Allergies Allergy Mild NONE Verified 10/25/21 12:57 Review of Systems Review of Systems: Yes all other systems are reviewed and are negative PMF Past Medical History Medical History 23-polyvalent pneumococcal polysaccharide vaccine indication of diabetes in patient 6 to 64 years of age Asthma Social History Social History Household Members: Family Housing: Apartment Do you presently have visiting nurse or other home services: No Patient Tobacco Use Status: Never used Tobacco Advance Directives: No Advance Directives Information Provided: No service: No Current occupational status: employed Physical Exam Vital Signs: Vital Signs: Last Vital Signs Temp 98.5 F 01/05/22 03:48 Pulse 93 01/05/22 03:48 Resp 12 01/05/22 03:48 BP 135/77 01/05/22 03:48 Pulse Ox 97 01/05/22 03:48 O2 Del Method 01/05/22 03:48 BMI result Body Mass Index 24.0 Appearance: Alert. Oriented X3. No acute distress. Eyes: PERRLA, No Nystagmus ENT: Pharynx normal. Oral Mucosa moist upper incisor and left canine tooth broken Neck: Normal inspection. Neck supple. CVS: Normal heart rate and rhythm. Pulses normal. Respiratory: No respiratory distress tenderness and right lower ribs in the front no obvious deformity Equal air entry bilateral, no wheezing/rales/rhonchi Abdomen: Soft and nontender. Bowel sounds are present, no mass palpable, no CVA tenderness Skin: Skin warm and dry. Normal skin color. Normal skin turgor. Extremities: No lower extremity edema. No calf tenderness Neuro: Oriented X 3. No motor deficit. No sensory deficit.No cerebellar signs , cranial nerves II-XII intact MDM - Syncope MDM Narrative Medical decision making narrative: Patient with leukocytosis orthostatic hypotension recurrent syncope episodes etiology not very clear we will give patient Rocephin blood cultures were drawn CT head negative CT C-spine negative CT a chest negative for PE, UA is negative, will admit for observation Lab Data Attestation: I reviewed the patient's lab results. Result diagrams: 01/04/22 22:32 01/04/22 23:46 Labs: Lab Results 01/04/22 01/04/22 01/04/22 Range/Units 22:19 22:32 22:32 WBC 18.4 H (4.8-10.8) X10*3/uL RBC 4.61 (4.20-5.50) X10*6/uL Hgb 12.2 (12.0-16.0) g/dl Hct 36.6 L (37.0-47.0) % MCV 79.4 L (80.0-98.0) fL MCH 26.5 L (27.0-33.0) pg MCHC 33.3 (31.0-35.0) g/dl RDW 13.0 (11.0-16.0) % Plt Count 526 H D (160-400) X10*3/uL MPV 9.6 (9.4-12.3) fL Immature Gran % (Auto) 0.6 H (0.0-0.4) % Neut % (Auto) 71.8 (45-73) % Lymph % (Auto) 20.5 (20-40) % [place] % (Auto) 6.7 (2-11) % Eos % (Auto) 0.2 (0-4) % Baso % (Auto) 0.2 (0-2) % Lymph # (Auto) 3.8 (1.2-4.9) X10*3/uL [place] # (Auto) 1.2 (0.1-1.2) X10*3/uL Eos # (Auto) 0.0 (0.0-0.4) X10*3/uL Baso # (Auto) 0.0 (0.0-0.2) X10*3/uL Abs Immat Gran (auto) 0.11 H (0.00-0.03) X10*3/uL Absolute Neuts (auto) 13.2 H (2.0-8.3) x10*3/uL Absolute Nucleated RBC 0.000 (0.0-0.012) X10*3/uL Nucleated RBC % (auto) 0.0 (0.0-0.2) /100WBC PT (10.0-13.1) SEC INR (0.9-1.1) Sodium (135-145) mmol/L Potassium (3.3-5.1) mmol/L Chloride (96-108) mmol/L Carbon Dioxide (22-29) mmol/L Anion Gap (12-20) BUN (9-16) mg/dL Creatinine (0.5-1.4) mg/dL Estim Creat Clear Calc Estimated GFR POC Glucose 255 H (60-115) mg/dL Random Glucose (60-115) mg/dL Lactic Acid (0.5-2.0) mmol/L Calcium (8.4-10.2) mg/dL Magnesium (1.6-2.6) mg/dL Total Bilirubin (0.0-1.0) mg/dL AST (5-31) U/L ALT (0-31) U/L Alkaline Phosphatase (39-117) U/L Troponin I High Sens (<3.5-17.0) ng/L Total Protein (6.5-8.0) g/dL Albumin (3.5-5.0) g/dL Urine Color Urine Appearance Urine pH (5.0-9.0) Ur Specific [place] (1.005-1.025) Urine Protein (Neg-Trace) mg/dL Urine Glucose (UA) (Negative) mg/dL Urine Ketones (Negative) mg/dL Urine Blood (Negative) Urine Nitrite (Negative) Ur Leukocyte Esterase (Negative) Urine RBC (0-2) /HPF Urine WBC (0-5) /HPF Ur Squamous Epith Cells (0-2) /HPF Urine Bacteria (None Seen) Hyaline Casts (0-2) /LPF COVID-19 (DOV) Negative (Negative) COVID-19 Clin Com See Note 01/04/22 01/04/22 01/04/22 Range/Units 22:33 22:33 23:46 WBC (4.8-10.8) X10*3/uL RBC (4.20-5.50) X10*6/uL Hgb (12.0-16.0) g/dl Hct (37.0-47.0) % MCV (80.0-98.0) fL MCH (27.0-33.0) pg MCHC (31.0-35.0) g/dl RDW (11.0-16.0) % Plt Count (160-400) X10*3/uL MPV (9.4-12.3) fL Immature Gran % (Auto) (0.0-0.4) % Neut % (Auto) (45-73) % Lymph % (Auto) (20-40) % [place] % (Auto) (2-11) % Eos % (Auto) (0-4) % Baso % (Auto) (0-2) % Lymph # (Auto) (1.2-4.9) X10*3/uL [place] # (Auto) (0.1-1.2) X10*3/uL Eos # (Auto) (0.0-0.4) X10*3/uL Baso # (Auto) (0.0-0.2) X10*3/uL Abs Immat Gran (auto) (0.00-0.03) X10*3/uL Absolute Neuts (auto) (2.0-8.3) x10*3/uL Absolute Nucleated RBC (0.0-0.012) X10*3/uL Nucleated RBC % (auto) (0.0-0.2) /100WBC PT 11.1 (10.0-13.1) SEC INR 1.0 (0.9-1.1) Sodium 135 (135-145) mmol/L Potassium 4.5 (3.3-5.1) mmol/L Chloride 97 (96-108) mmol/L Carbon Dioxide 22 (22-29) mmol/L Anion Gap 21 H (12-20) BUN 44 H (9-16) mg/dL Creatinine 1.05 (0.5-1.4) mg/dL Estim Creat Clear Calc 57.8 Estimated GFR 56 POC Glucose (60-115) mg/dL Random Glucose 260 H (60-115) mg/dL Lactic Acid (0.5-2.0) mmol/L Calcium 9.2 D (8.4-10.2) mg/dL Magnesium 2.3 (1.6-2.6) mg/dL Total Bilirubin 0.7 (0.0-1.0) mg/dL AST 19 (5-31) U/L ALT 13 (0-31) U/L Alkaline Phosphatase 110 (39-117) U/L Troponin I High Sens < 3.5 (<3.5-17.0) ng/L Total Protein 7.8 (6.5-8.0) g/dL Albumin 4.3 (3.5-5.0) g/dL Urine Color Urine Appearance Urine pH (5.0-9.0) Ur Specific [place] (1.005-1.025) Urine Protein (Neg-Trace) mg/dL Urine Glucose (UA) (Negative) mg/dL Urine Ketones (Negative) mg/dL Urine Blood (Negative) Urine Nitrite (Negative) Ur Leukocyte Esterase (Negative) Urine RBC (0-2) /HPF Urine WBC (0-5) /HPF Ur Squamous Epith Cells (0-2) /HPF Urine Bacteria (None Seen) Hyaline Casts (0-2) /LPF COVID-19 (DOV) (Negative) COVID-19 Clin Com 01/05/22 01/05/22 Range/Units 02:08 02:11 WBC (4.8-10.8) X10*3/uL RBC (4.20-5.50) X10*6/uL Hgb (12.0-16.0) g/dl Hct (37.0-47.0) % MCV (80.0-98.0) fL MCH (27.0-33.0) pg MCHC (31.0-35.0) g/dl RDW (11.0-16.0) % Plt Count (160-400) X10*3/uL MPV (9.4-12.3) fL Immature Gran % (Auto) (0.0-0.4) % Neut % (Auto) (45-73) % Lymph % (Auto) (20-40) % [place] % (Auto) (2-11) % Eos % (Auto) (0-4) % Baso % (Auto) (0-2) % Lymph # (Auto) (1.2-4.9) X10*3/uL [place] # (Auto) (0.1-1.2) X10*3/uL Eos # (Auto) (0.0-0.4) X10*3/uL Baso # (Auto) (0.0-0.2) X10*3/uL Abs Immat Gran (auto) (0.00-0.03) X10*3/uL Absolute Neuts (auto) (2.0-8.3) x10*3/uL Absolute Nucleated RBC (0.0-0.012) X10*3/uL Nucleated RBC % (auto) (0.0-0.2) /100WBC PT (10.0-13.1) SEC INR (0.9-1.1) Sodium (135-145) mmol/L Potassium (3.3-5.1) mmol/L Chloride (96-108) mmol/L Carbon Dioxide (22-29) mmol/L Anion Gap (12-20) BUN (9-16) mg/dL Creatinine (0.5-1.4) mg/dL Estim Creat Clear Calc Estimated GFR POC Glucose (60-115) mg/dL Random Glucose (60-115) mg/dL Lactic Acid 0.9 (0.5-2.0) mmol/L Calcium (8.4-10.2) mg/dL Magnesium (1.6-2.6) mg/dL Total Bilirubin (0.0-1.0) mg/dL AST (5-31) U/L ALT (0-31) U/L Alkaline Phosphatase (39-117) U/L Troponin I High Sens (<3.5-17.0) ng/L Total Protein (6.5-8.0) g/dL Albumin (3.5-5.0) g/dL Urine Color Yellow Urine Appearance Clear Urine pH 5.5 (5.0-9.0) Ur Specific [place] >= 1.030 H (1.005-1.025) Urine Protein 100 (2+) H (Neg-Trace) mg/dL Urine Glucose (UA) 250 H (Negative) mg/dL Urine Ketones 15 (Negative) mg/dL Urine Blood Negative (Negative) Urine Nitrite Negative (Negative) Ur Leukocyte Esterase Negative (Negative) Urine RBC 0-2 (0-2) /HPF Urine WBC 6-10 H (0-5) /HPF Ur Squamous Epith Cells >20 (0-2) /HPF Urine Bacteria Trace (None Seen) Hyaline Casts 0-2 (0-2) /LPF COVID-19 (DOV) (Negative) COVID-19 Clin Com ECG Data Attestation: I personally reviewed and interpreted this ECG as follows: Interpretation: Sinus tachycardia heart rate of 106 beats per minute normal axis normal interval no acute ST-T no acute ischemia Discharge Plan Discharge Clinical Impression: Syncope Patient Disposition: Admitted As Inpatient
--- NOTE | 2022-01-04 22:25 | PC.NURSE ---
Patient arrives via EMS from home with her daughters. EMS reports 3 episodes of syncope today, the last time her daughter caught and lowered her. The other two times she hit her face, breaking her two front teeth. She is tearful on arrival, but oriented to self, birthday, location, and year. C-collar in place from EMS. Patient endorses 10/10 neck, back, and ribs pain. She states this happened to her a couple months ago, but she was dehydrated from vomiting. She endorses trace nausea, but denies vomiting or diarrhea. She denies blood thinners. +LOC. +CSM to all extremities. HR ST low 100s.
[2022-01-04] MEDS: 0.9 % Sodium Chloride 1,000 ML 999 ML IV (22:35)
[2022-01-04 22:40] LABS: MANUAL DIFF FLAG NO
[2022-01-04 22:43] LABS: Basophils Percent Auto 0.2 % (0-2); Eosinophils Percent Auto 0.2 % (0-4); Hematocrit 36.6 % (37.0-47.0); Hemoglobin 12.2 g/dl (12.0-16.0); Imm Gran Abs Auto 0.11 X10*3/uL (0.00-0.03); Imm Gran Pct Auto 0.6 % (0.0-0.4); Lymphocytes Absolute Auto 3.8 X10*3/uL (1.2-4.9); Lymphocytes Percent Auto 20.5 % (20-40); Mean Corpuscular HGB Conc 33.3 g/dl (31.0-35.0); Mean Corpuscular Hemoglobin 26.5 pg (27.0-33.0); Mean Corpuscular Volume 79.4 fL (80.0-98.0); Mean Platelet Volume 9.6 fL (9.4-12.3); Monocytes Absolute Auto 1.2 X10*3/uL (0.1-1.2); Monocytes Percent Auto 6.7 % (2-11); Neutrophils Absolute Auto 13.2 x10*3/uL (2.0-8.3); Neutrophils Percent Auto 71.8 % (45-73); Platelet Count 526 X10*3/uL (160-400); Red Blood Count 4.61 X10*6/uL (4.20-5.50); White Blood Count 18.4 X10*3/uL (4.8-10.8)
[2022-01-04 23:00] LABS: Prothrombin Time 11.1 SEC (10.0-13.1)
[2022-01-04 23:01] LABS: Troponin-I High Sensitivity < 3.5 ng/L (<3.5-17.0)
[2022-01-04 23:06] LABS: COVID-19 Test Negative (Negative)
[2022-01-04 23:07] VITALS: BP 139/92; PULSE 110; RESP 9; TEMP 36.6; O2SAT 98
[2022-01-04 23:48] VITALS: BP 151/93; PULSE 108; RESP 15; O2SAT 97
[2022-01-05] VITALS (16 sets, daily range): BP systolic 97–169; BP diastolic 61–108; PULSE 89–109; RESP 12–18; TEMP 35.9–37.7; O2SAT 96–100
[2022-01-05 00:13] LABS: Alanine Aminotransferase 13 U/L (0-31); Albumin Level 4.3 g/dL (3.5-5.0); Alkaline Phosphatase 110 U/L (39-117); Anion Gap 21 (12-20); Aspartate Amino Transferase 19 U/L (5-31); Bilirubin Total 0.7 mg/dL (0.0-1.0); Blood Urea Nitrogen 44 mg/dL (9-16); Calcium 9.2 mg/dL (8.4-10.2); Carbon Dioxide 22 mmol/L (22-29); Chloride 97 mmol/L (96-108); Creatinine Clr Calc Pharmacy 57.8; Estimated Glomerular Filt Rate 56; Glucose Random 260 mg/dL (60-115); Magnesium 2.3 mg/dL (1.6-2.6); Potassium 4.5 mmol/L (3.3-5.1); Sodium 135 mmol/L (135-145); Total Protein 7.8 g/dL (6.5-8.0)
[2022-01-05] MEDS: iohexoL 350 MG/ML 100 ML INFUS..BTL IV (00:49)
--- NOTE | 2022-01-05 01:24 | PC.NURSE ---
Patient back from CT and endorses significant right-sided rib pain after being moved to/from CT table. Ice pack provided. Call sullivan is within reach.
[2022-01-05] MEDS: 0.9 % Sodium Chloride 1,000 ML 999 ML IV (01:55)
--- NOTE | 2022-01-05 01:55 | PC.NURSE ---
MD Banda made aware of patient's orthostatic vitals, with SBP dropping to 80s.
[2022-01-05 02:16] LABS: Appearance Urine Clear; Color Urine Yellow; Glucose Urine UA 250 mg/dL (Negative); Leukocyte Esterase Urine Negative (Negative); Nitrite Urine Negative (Negative); PH 5.5 (5.0-9.0); Specific Gravity - Urine >= 1.030 (1.005-1.025); UMIC TRIGGER UACC YES; Urine Blood Negative (Negative); Urine Ketones 15 mg/dL (Negative); Urine Protein 100 (2+) mg/dL (Neg-Trace)
[2022-01-05] MEDS: cefTRIAXone sodium 1 GM in 0.9 % Sodium Chloride 50 ML IV (02:20)
[2022-01-05 02:27] LABS: Lactic Acid 0.9 mmol/L (0.5-2.0)
[2022-01-05 02:27] LABS: Bacteria Urine Trace (None Seen); Hyaline Casts Urine 0-2 /LPF (0-2); RBC Urine 0-2 /HPF (0-2); Squamous Epithelial Cell Urine >20 /HPF (0-2); UACC Culture Trigger YES
--- NOTE | 2022-01-05 05:47 | PC.NURSE ---
pt sleeping no sign of distress. Plan is for pt to be admitted.
--- NOTE | 2022-01-05 06:28 | PM.IMHP ---
History of Present Illness Date of Service: 01/05/22 Chief Complaint: LOC 46-year-old female with past medical history of diabetes, GERD, presents to the hospital with complaints of falling and losing consciousness x3. Patient reports that she has had severe nausea since Sunday, therefore she has not been eating or drinking much, she got up to go use the bathroom today, had subsequent falls every time she tried to get up, she had loss of consciousness for few seconds supported by her daughter. She does report that she hit her face falling down crack in her tooth. She denies any headache at this time, reports feeling significantly dizzy prior to falling, denies any chest pain, no palpitations, reports known recent fever or chills, denies any diarrhea or constipation, no urinary symptoms. On arrival to the ED patient hemodynamically stable, when orthostatic vitals were attempted P patient became significantly dizzy, and hypotensive therefore vitals were aborted, Labs are significant for WBC count of 18.4, otherwise unremarkable, urine negative for any acute infection Head CT, cervical spine CT, chest CT negative Review of Systems Review of Systems: Yes all other systems are reviewed and are negative [facility] Medical History 23-polyvalent pneumococcal polysaccharide vaccine indication of diabetes in patient 6 to 64 years of age Asthma Diabetes GERD (gastroesophageal reflux disease) Family History Other No family history of coronary artery disease Surgical History H/O: hysterectomy Social History Household Members: Family Housing: Apartment Do you presently have visiting nurse or other home services: No Patient Tobacco Use Status: Never used Tobacco Advance Directives: No Advance Directives Information Provided: No service: No Current occupational status: employed Meds Allergies Allergy/AdvReac Type Severity Reaction Status Date / Time No Known Allergies Allergy Mild NONE Verified 10/25/21 12:57 Active Medications: Current Medications Acetaminophen (Acetaminophen 325 Mg Tablet) 650 mg PO Q6H PRN PRN Reason: Pain, Mild (Pain Scale 1-3) Docusate Sodium (Docusate Sodium 100 Mg Capsule) 100 mg PO DAILY PRN PRN Reason: Constipation Enoxaparin Sodium (Enoxaparin Sodium 40 Mg/0.4 Ml Syringe) 40 mg SUBCUT Q24H [place] Lactated Ringer's (Lr) 1,000 mls @ 100 mls/hr IVCONT .Q10H [place] Ondansetron HCl (Ondansetron Hcl 4 Mg/2 Ml Vial) 4 mg IVPUSH Q8H PRN PRN Reason: Nausea and Vomiting Pharmacy Consult (Consult Rx Perform Med Rec) 1 each MISCELLANE ONCE PRN PRN Reason: Consult order Home Medications Medication Instructions Recorded Confirmed Last Taken Type gabapentin 300 mg capsule 300 mg PO BID 08/08/21 08/08/21 Unknown History insulin glargine 100 unit/mL 50 unit subcut BEDTIME 08/08/21 08/08/21 08/04/21 History subcutaneous solution (Lantus U-100 Insulin) metformin 1,000 mg tablet 1,000 mg PO BID 08/08/21 08/08/21 08/04/21 History multivitamin 1 tab PO DAILY 08/08/21 08/08/21 08/04/21 History Physical Exam Vital Signs and Narrative: Vital Signs: Last Vital Signs Temp 98.7 F 01/05/22 05:57 Pulse 100 01/05/22 05:57 Resp 16 01/05/22 05:57 BP 147/89 H 01/05/22 05:57 Pulse Ox 100 01/05/22 05:57 O2 Del Method 01/05/22 05:57 BMI result Body Mass Index 24.0 Const: Other: Appears very ill, weak General: cooperative and no acute distress Orientation/consciousness: patient oriented x3 Eyes: General: appearance normal, both eyes and all related structures Pupils: Equal, round and reactive pupils present Resp: Effort & Inspection: normal respiratory effort Auscultation: clear to auscultation bilaterally Cardio: Rate: regular rate Rhythm: regular rhythm GI: Palpation (GI): Soft to palpation Auscultation: normal bowel sounds Skin: General skin exam: no rashes or lesions noted Neuro: General: patient oriented x3 Cranial nerves: Yes Equal, round and reactive pupils present Cognition (Neuro): normal cognition Extrem: General: Yes normal to inspection and Yes no pedal edema Results Labs CBC and Chem 7: 01/04/22 22:32 01/04/22 23:46 Labs: Laboratory Results - last 24 hr 01/04/22 01/04/22 01/04/22 22:19 22:32 22:32 MCV 79.4 L MCH 26.5 L MCHC 33.3 RDW 13.0 Plt Count 526 H D MPV 9.6 Immature Gran % (Auto) 0.6 H Neut % (Auto) 71.8 Lymph % (Auto) 20.5 Mcintosh % (Auto) 6.7 Eos % (Auto) 0.2 Baso % (Auto) 0.2 Lymph # (Auto) 3.8 Mcintosh # (Auto) 1.2 Eos # (Auto) 0.0 Baso # (Auto) 0.0 Abs Immat Gran (auto) 0.11 H Absolute Neuts (auto) 13.2 H Absolute Nucleated RBC 0.000 Nucleated RBC % (auto) 0.0 PT INR Anion Gap Estim Creat Clear Calc Estimated GFR POC Glucose 255 H Random Glucose Lactic Acid Calcium Magnesium Total Bilirubin AST ALT Alkaline Phosphatase Troponin I High Sens Total Protein Albumin Urine Color Urine Appearance Urine pH Ur Specific [place] Urine Protein Urine Glucose (UA) Urine Ketones Urine Blood Urine Nitrite Ur Leukocyte Esterase Urine RBC Urine WBC Ur Squamous Epith Cells Urine Bacteria Hyaline Casts COVID-19 (DOV) Negative COVID-19 Clin Com See Note 01/04/22 01/04/22 01/04/22 22:33 22:33 23:46 MCV MCH MCHC RDW Plt Count MPV Immature Gran % (Auto) Neut % (Auto) Lymph % (Auto) Mcintosh % (Auto) Eos % (Auto) Baso % (Auto) Lymph # (Auto) Mcintosh # (Auto) Eos # (Auto) Baso # (Auto) Abs Immat Gran (auto) Absolute Neuts (auto) Absolute Nucleated RBC Nucleated RBC % (auto) PT 11.1 INR 1.0 Anion Gap 21 H Estim Creat Clear Calc 57.8 Estimated GFR 56 POC Glucose Random Glucose 260 H Lactic Acid Calcium 9.2 D Magnesium 2.3 Total Bilirubin 0.7 AST 19 ALT 13 Alkaline Phosphatase 110 Troponin I High Sens < 3.5 Total Protein 7.8 Albumin 4.3 Urine Color Urine Appearance Urine pH Ur Specific [place] Urine Protein Urine Glucose (UA) Urine Ketones Urine Blood Urine Nitrite Ur Leukocyte Esterase Urine RBC Urine WBC Ur Squamous Epith Cells Urine Bacteria Hyaline Casts COVID-19 (DOV) COVID-19 Clin Com 01/05/22 01/05/22 02:08 02:11 MCV MCH MCHC RDW Plt Count MPV Immature Gran % (Auto) Neut % (Auto) Lymph % (Auto) Mcintosh % (Auto) Eos % (Auto) Baso % (Auto) Lymph # (Auto) Mcintosh # (Auto) Eos # (Auto) Baso # (Auto) Abs Immat Gran (auto) Absolute Neuts (auto) Absolute Nucleated RBC Nucleated RBC % (auto) PT INR Anion Gap Estim Creat Clear Calc Estimated GFR POC Glucose Random Glucose Lactic Acid 0.9 Calcium Magnesium Total Bilirubin AST ALT Alkaline Phosphatase Troponin I High Sens Total Protein Albumin Urine Color Yellow Urine Appearance Clear Urine pH 5.5 Ur Specific [place] >= 1.030 H Urine Protein 100 (2+) H Urine Glucose (UA) 250 H Urine Ketones 15 Urine Blood Negative Urine Nitrite Negative Ur Leukocyte Esterase Negative Urine RBC 0-2 Urine WBC 6-10 H Ur Squamous Epith Cells >20 Urine Bacteria Trace Hyaline Casts 0-2 COVID-19 (DOV) COVID-19 Clin Com Imaging Radiologist's Impressions: Impressions Chest CT 01/05/22 00:52 IMPRESSION: No acute findings within the chest. No fractures. Hepatic steatosis suspected. Query esophagitis. Cervical Spine CT 01/05/22 00:57 IMPRESSION: 1. No acute intracranial bleed or territorial infarction. 2. No acute fracture or malalignment of the cervical spine. Head CT 01/05/22 00:57 IMPRESSION: 1. No acute intracranial bleed or territorial infarction. 2. No acute fracture or malalignment of the cervical spine. Assessment and Plan (1) Syncope: Status: Acute Plan 46-year-old female with past medical history of diabetes presents to hospital syncopal episode # syncope - likely secondary to orthostatic hypotension - patient became orthostatic when orthostatic vitals were attempted and patient has significant hypotension as a result - reports nausea since Sunday and decreased oral intake - no evidence of acute infection - no EKG seen just suggestive of ACS or arrhythmia - will start on IV fluids, admit to telemetry - repeat orthostatics prior to discharge -patient reverse no current nausea # diabetes - evidence of DKA, hyperglycemia, or hypoglycemia suggestive of etiology for syncope - will start on low-dose sliding scale insulin - diabetic diet DVT prophylaxis: Lovenox Pt will require a minimum 2 night hospital stay for IV fluids Quality Stroke Does the patient have a stroke diagnosis?: No VTE Prior VTE?: No VTE Risk Level:: Medical - moderate - high VTE Device Contraindication: Treatment Not Indicated VTE Drug Contraindication: N/A - Med Ordered
[2022-01-05] MEDS: Lactated Ringers 1,000 ML 100 ML IVCONT (06:34)
[2022-01-05] MEDS: Enoxaparin Sodium 40 MG/0.4 ML SYRINGE SUBCUT (06:36)
--- NOTE | 2022-01-05 06:40 | PC.NURSE ---
Medicated per may. pt assisted to bedside commode due to fear of falling.
[2022-01-05 07:28] LABS: Glucose, Whole Blood 202 mg/dL (60-115)
[2022-01-05] MEDS: Insulin Lispro 100 UNIT/ML 3 ML VIAL SUBCUT (07:47)
--- NOTE | 2022-01-05 07:56 | PHA.MEDREC ---
Pharmacy Consult ? Medication Reconciliation Pharmacy has completed the medication reconciliation. Patient reports only using eye drops and lantus 50 units BID. Patient has all eys drops with her. Ca Fraire, StefanD
--- NOTE | 2022-01-05 09:18 | MHC.CM.PN ---
Patient typically lives in an apartment with her Significant Other and her Adult Daughter; her Significant Other will be away for the next 2 weeks. Home, self care is the goal and CM has initiated and will follow for dc planning. PCP is Dr. Carlos Jernigan and Patient has received Point [facility]/Mingly vax x2.
--- NOTE | 2022-01-05 11:33 | PM.EVENT ---
Event Note Date of Service: 01/05/22 Event Note: Day hospitalist update S: c/o R flank pain c/o N/V no fever was admitted in July for sepsis from pyelonephritis O: Temp Pulse Resp BP Pulse Ox O2 Del Method 99.2 F 94 14 142/94 H 100 01/05/22 07:20 01/05/22 07:20 01/05/22 07:20 01/05/22 07:20 01/05/22 07:20 01/05/22 07:20 Gen: in no acute distress HEENT: sclera anicteric, moist mucus membranes Neck: supple Lungs: clear to auscultation bilaterally Heart: regular rate and rhythm, no murmurs Abd: soft, non-tender, non-distended : R CVA tenderness Ext: no edema Skin: warm/well-perfused Neuro: alert and oriented x3, no focal findings Psych: appropriate affect A/P: d#1 46yo F with DM2 presenting after brief syncopal episodes preceded by nausea and poor PO intake, found to have orthostatic hypotension # syncope - likely orthostatic hypotension from dehydration- continue IV fluids # UTI suspect pyelonephritis - follow UCx+ BCx, continue ceftriaxone, check renal US # DM2 - basal/bolus insulin # VTE ppx: LMWH In my clinical judgment, the patient requires continued hospitalization for the following reasons: IV ABX, IV fluids
[2022-01-05] MEDS: 0.9 % Sodium Chloride 1,000 ML 100 ML IVCONT ×2 (11:35→20:03)
[2022-01-05] MEDS: Morphine Sulfate 2 MG/ML CARTRIDGE IVPUSH ×3 (11:37→23:20)
[2022-01-05] MEDS: Insulin Glargine,Hum.rec.anlog 100 UNIT/ML 10 ML VIAL 25 UNIT SUBCUT (11:39)
[2022-01-05] MEDS: prednisoLONE Acetate 1 % Oph Susp 5 ML DRPBTL 1 DROP EYE-BOTH (14:19)
[2022-01-05] MEDS: Ketorolac Tromethamine 0.5% Op 5 ML DROPS 1 DROP EYE-BOTH (14:21)
[2022-01-05] MEDS: Brimonidine Tartrate 0.2% Oph 5 ML BOTTLE 1 DROP EYE-LEFT (14:21)
[2022-01-05 14:45] LABS: Glucose, Whole Blood 105 mg/dL (60-115)
--- NOTE | 2022-01-05 15:19 | PC.NURSE ---
Report given to [facility] [place].
[2022-01-05 16:28] LABS: Glucose, Whole Blood 101 mg/dL (60-115)
--- NOTE | 2022-01-05 20:07 | PC.NURSE ---
Education provided on eye drops and how they are scheduled, pt refused all except latanoprost stating she doesn't take any other eye drops at night besides that one.
[2022-01-06 00:37] LABS: Glucose, Whole Blood 128 mg/dL (60-115)
[2022-01-06] MEDS: cefTRIAXone sodium 1 GM in 0.9 % Sodium Chloride 50 ML IV (02:54)
[2022-01-06] MEDS: Morphine Sulfate 2 MG/ML CARTRIDGE IVPUSH ×4 (03:23→21:26)
[2022-01-06 03:40] VITALS: BP 116/54; PULSE 85; RESP 20; TEMP 37; O2SAT 100
[2022-01-06] MEDS: Enoxaparin Sodium 40 MG/0.4 ML SYRINGE SUBCUT (06:13)
[2022-01-06 06:45] LABS: MANUAL DIFF FLAG NO
[2022-01-06 06:50] LABS: Basophils Absolute Auto 0.1 X10*3/uL (0.0-0.2); Basophils Percent Auto 0.5 % (0-2); Eosinophils Absolute Auto 0.2 X10*3/uL (0.0-0.4); Hematocrit 37.5 % (37.0-47.0); Hemoglobin 12.2 g/dl (12.0-16.0); Imm Gran Abs Auto 0.07 X10*3/uL (0.00-0.03); Imm Gran Pct Auto 0.4 % (0.0-0.4); Mean Corpuscular HGB Conc 32.5 g/dl (31.0-35.0); Mean Corpuscular Hemoglobin 26.3 pg (27.0-33.0); Mean Platelet Volume 10.2 fL (9.4-12.3); Monocytes Absolute Auto 1.2 X10*3/uL (0.1-1.2); Neutrophils Absolute Auto 11.1 x10*3/uL (2.0-8.3); Neutrophils Percent Auto 67.1 % (45-73); Platelet Count 407 X10*3/uL (160-400); Red Blood Count 4.63 X10*6/uL (4.20-5.50); Red Cell Distribution Width 12.8 % (11.0-16.0); White Blood Count 16.5 X10*3/uL (4.8-10.8)
[2022-01-06 07:22] VITALS: BP 127/79; PULSE 92; RESP 17; TEMP 36.8; O2SAT 99
[2022-01-06 07:33] LABS: Anion Gap 19 (12-20); Blood Urea Nitrogen 26 mg/dL (9-16); Calcium 8.8 mg/dL (8.4-10.2); Carbon Dioxide 20 mmol/L (22-29); Chloride 102 mmol/L (96-108); Creatinine Clr Calc Pharmacy 77.8; Estimated Glomerular Filt Rate > 60; Glucose Random 120 mg/dL (60-115); Sodium 137 mmol/L (135-145)
[2022-01-06 08:10] LABS: Glucose, Whole Blood 123 mg/dL (60-115)
[2022-01-06 08:19] LABS: C Reactive Protein 1.08 mg/dL (< or = 0.50)
--- NOTE | 2022-01-06 10:20 | P.CDIC_ITS ---
CDI Concurrent Query Documentation Clarification: PHYSICIAN'S DOCUMENTATION REQUEST Date of Query: 01/06/22 1021 Patient Name: Bertha Chan Admit Date: 01/05/22 Dear Doctor, A review of the medical record indicates additional documentation may be needed. Please review below and update the documentation accordingly. Clinical Indicators: The diagnosis of [Diagnosis] was documented on [date] but is not consistently noted in subsequent documentation. Treating, resolved, poa etc. Risk Factors/Clinical Indicators/Treatments H&P: Diabetes, evidence of DKA, hyperglycemia or hypoglycemia as symptoms of etiology of syncope. Please clarify the following: Diabetes mellitus with ketoacidosis without coma DKA * [Diagnosis] was present on admission and is now resolved * [Diagnosis] was present on admission and is still being monitored, evaluated, or treated * [Diagnosis] was ruled out * [Diagnosis] is still a likely, suspected, probable diagnosis * Other (please specify) * Unable to determine Use of terms such as suspected, likely, concern for, or probable (associated with a specific diagnosis that is being evaluated, monitored, or treated as if it exists) are acceptable and can be coded in the inpatient setting, when docu mented at the time of discharge. Thank you, Lucinda Rizo [facility], CDIS Extension: [phone] Please use your independent medical judgment in providing your response. THIS QUERY IS PART OF THE PERMANENT MEDICAL RECORD Provider Response: Other Other Diagnosis: NO evivdence of DKA
[2022-01-06 10:23] LABS: Alanine Aminotransferase 7 U/L (0-31); Albumin Level 3.6 g/dL (3.5-5.0); Alkaline Phosphatase 83 U/L (39-117); Aspartate Amino Transferase 16 U/L (5-31); Bilirubin Direct < 0.2 mg/dL (0.0-0.5); Bilirubin Total 0.4 mg/dL (0.0-1.0); Total Protein 6.4 g/dL (6.5-8.0)
[2022-01-06 10:52] VITALS: BP 119/75; PULSE 90; RESP 17; TEMP 36.2; O2SAT 98
--- NOTE | 2022-01-06 11:42 | P.PNIM_ITS ---
Subjective Subjective Date of Service: 01/06/22 Interval History: c/o RUQ and R flank pain nausea no further syncope Physical Exam Vital Signs: Vital Signs: Last Vital Signs Temp 97.1 F 01/06/22 10:52 Pulse 90 01/06/22 10:52 Resp 17 01/06/22 10:52 BP 119/75 01/06/22 10:52 Pulse Ox 98 01/06/22 10:52 O2 Del Method 01/06/22 10:52 BMI result Body Mass Index 24.0 Gen: in no acute distress HEENT: sclera anicteric, moist mucus membranes Neck: supple Lungs: clear to auscultation bilaterally Heart: regular rate and rhythm, no murmurs Abd: soft, RUQ and R flank tenderness, non-distended, no rebound/guarding Ext: no edema Skin: warm/well-perfused Neuro: alert and oriented x3, no focal findings Psych: appropriate affect Objective Data Active Medications Acetaminophen (Acetaminophen 325 Mg Tablet) 650 mg PO Q6H PRN PRN Reason: Pain, Mild (Pain Scale 1-3) Brimonidine Tartrate (Brimonidine Tartrate 0.2% Oph 5 Ml Bottle) 1 drop EYE- LEFT TID [facility] Last Admin: 01/06/22 10:52 Dose: Not Given Documented By: NELLY Non-Admin Reason: Previously Administered Dextrose (Dextrose 50 % 25 Gm/50 Ml Syringe) 25 gm IVPUSH Q15M PRN; Protocol PRN Reason: per Hypoglycemia Standing Ord. Docusate Sodium (Docusate Sodium 100 Mg Capsule) 100 mg PO DAILY PRN PRN Reason: Constipation Enoxaparin Sodium (Enoxaparin Sodium 40 Mg/0.4 Ml Syringe) 40 mg SUBCUT Q24H [facility] Last Admin: 01/06/22 06:13 Dose: 40 mg Documented By: ERMIAS Glucose (Glucose Gel 15 Gm Gel..Gram.) 15 gm PO Q15M PRN; Protocol PRN Reason: per Hypoglycemia Standing Ord. Ceftriaxone Sodium 1 gm/ (Sodium Chloride) 50 mls @ 100 mls/hr IV Q24H [facility] Last Infusion: 01/06/22 03:26 Dose: 0 mls/hr Documented By: ERMIAS Sodium Chloride (Ns) 1,000 mls @ 100 mls/hr IVCONT .Q10H [facility] Last Infusion: 01/06/22 06:34 Dose: 0 mls/hr Documented By: ERMIAS Insulin Glargine (Insulin Glargine,Hum.Rec.Anlog 100 Unit/Ml 10 Ml Vial) 25 unit SUBCUT DAILY [facility] Last Admin: 01/06/22 10:46 Dose: Not Given Documented By: NELLY Non-Admin Reason: No Insulin Coverage Insulin Human Lispro (Insulin Lispro 100 Unit/Ml 3 Ml Vial) 0 unit SUBCUT QIDACHS [facility]; Protocol Last Admin: 01/06/22 08:43 Dose: Not Given Documented By: NELLY Non-Admin Reason: No Insulin Coverage Ketorolac Tromethamine (Ketorolac Tromethamine 0.5% Op 5 Ml Drops) 1 drop EYE-BOTH TID [facility] Last Admin: 01/06/22 10:54 Dose: Not Given Documented By: NELLY Non-Admin Reason: Previously Administered Morphine Sulfate (Morphine Sulfate 2 Mg/Ml Cartridge) 2 mg IVPUSH Q4H PRN; Protocol PRN Reason: sev pain Last Admin: 01/06/22 03:23 Dose: 2 mg Documented By: ERMIAS Pt Own Med ( Latanoprostene Bunod [Vyzulta] 0.024 % Drops) 1 drop EYE-BOTH BEDTIME [facility] Last Admin: 01/05/22 20:01 Dose: 1 drop Documented By: ERMIAS Ondansetron HCl (Ondansetron Hcl 4 Mg/2 Ml Vial) 4 mg IVPUSH Q8H PRN PRN Reason: Nausea and Vomiting Oxycodone HCl (Oxycodone Hcl Immed Release 5 Mg Tablet) 5 mg PO Q6H PRN PRN Reason: mod pain Pharmacy Consult (Consult Rx Perform Med Rec) 1 each MISCELLANE ONCE PRN PRN Reason: Consult order Prednisolone Acetate (Prednisolone Acetate 1 % Oph Susp 5 Ml Drpbtl) 1 drop [facility]-BOTH BID [facility] Last Admin: 01/06/22 10:54 Dose: Not Given Documented By: NELLY Non-Admin Reason: Previously Administered Labs CBC & Chem 7: 01/06/22 06:11 01/06/22 06:11 Labs: Laboratory Results - last 24 hr 01/05/22 01/05/2222 14:41 16:21 19:16 MCV MCH MCHC RDW Plt Count MPV Immature Gran % (Auto) Neut % (Auto) Lymph % (Auto) [place] % (Auto) Eos % (Auto) Baso % (Auto) Lymph # (Auto) [place] # (Auto) Eos # (Auto) Baso # (Auto) Abs Immat Gran (auto) Absolute Neuts (auto) Absolute Nucleated RBC Nucleated RBC % (auto) Anion Gap Estim Creat Clear Calc Estimated GFR POC Glucose 105 101 128 H Random Glucose Calcium Total Bilirubin Direct Bilirubin AST ALT Alkaline Phosphatase C-Reactive Protein Total Protein Albumin 01/06/22 01/06/22 01/06/22 06:11 06:11 08:06 MCV 81.0 MCH 26.3 L MCHC 32.5 RDW 12.8 Plt Count 407 H MPV 10.2 Immature Gran % (Auto) 0.4 Neut % (Auto) 67.1 Lymph % (Auto) 24.0 [place] % (Auto) 7.0 Eos % (Auto) 1.0 Baso % (Auto) 0.5 Lymph # (Auto) 4.0 [place] # (Auto) 1.2 Eos # (Auto) 0.2 Baso # (Auto) 0.1 Abs Immat Gran (auto) 0.07 H Absolute Neuts (auto) 11.1 H Absolute Nucleated RBC 0.000 Nucleated RBC % (auto) 0.0 Anion Gap 19 Estim Creat Clear Calc 77.8 Estimated GFR > 60 POC Glucose 123 H Random Glucose 120 H Calcium 8.8 Total Bilirubin 0.4 Direct Bilirubin < 0.2 AST 16 ALT 7 Alkaline Phosphatase 83 D C-Reactive Protein 1.08 H Total Protein 6.4 L Albumin 3.6 Microbiology Microbiology Results: Microbiology 01/05/22 02:15 Blood Culture - Preliminary Blood - Venous No growth after 24 hours. 01/05/22 02:11 Blood Culture - Preliminary Blood - Venous No growth after 24 hours. Assessment and Plan (1) Syncope: Status: Acute Plan d#2 46yo F with DM2 presenting after brief syncopal episodes preceded by nausea and poor PO intake, found to have orthostatic hypotension # syncope - likely orthostatic hypotension from dehydration- continue IV fluids # UTI suspect pyelonephritis - follow UCx+ BCx, continue ceftriaxone. WBCs improving # RUQ pain - r/o cholecystitis- check US # DM2 - basal/bolus insulin # VTE ppx: LMWH In my clinical judgment, the patient requires continued hospitalization for the following reasons: IV ABX, IV fluids Quality Stroke Does the patient have a stroke diagnosis?: No VTE Prior VTE?: No VTE Risk Level:: Medical - moderate - high VTE Device Contraindication: Treatment Not Indicated VTE Drug Contraindication: N/A - Med Ordered
--- NOTE | 2022-01-06 11:55 | MHC.CM.PN ---
PER INTERDISCIPLINARY ROUNDS, PT NOT YET READY FOR DC. STILL REQUIRING IV ABT, MONITORING WBC AND STILL WITH RUQ PAIN. CM WILL CONTINUE TO FOLLOW FOR DC NEEDS.
[2022-01-06 11:56] LABS: Glucose, Whole Blood 129 mg/dL (60-115)
[2022-01-06] MEDS: Ketorolac Tromethamine 0.5% Op 5 ML DROPS 1 DROP EYE-BOTH ×2 (15:29→21:16)
[2022-01-06] MEDS: Brimonidine Tartrate 0.2% Oph 5 ML BOTTLE 1 DROP EYE-LEFT ×2 (15:29→21:17)
[2022-01-06 15:31] VITALS: BP 143/88; PULSE 95; RESP 17; TEMP 36.1; O2SAT 98
[2022-01-06 16:50] LABS: Glucose, Whole Blood 135 mg/dL (60-115)
[2022-01-06 17:13] VITALS: RESP 18
[2022-01-06 19:40] VITALS: BP 137/85; PULSE 96; RESP 17; TEMP 36.6; O2SAT 98
[2022-01-06 20:07] LABS: Glucose, Whole Blood 190 mg/dL (60-115)
[2022-01-06] MEDS: Insulin Lispro 100 UNIT/ML 3 ML VIAL SUBCUT (21:16)
[2022-01-06] MEDS: prednisoLONE Acetate 1 % Oph Susp 5 ML DRPBTL 1 DROP EYE-BOTH (21:16)
[2022-01-06] MEDS: 0.9 % Sodium Chloride 1,000 ML 100 ML IVCONT (21:27)
[2022-01-07] VITALS (10 sets, daily range): BP systolic 109–154; BP diastolic 65–92; PULSE 72–98; RESP 14–20; TEMP 36.5–37.2; O2SAT 97–99
[2022-01-07] MEDS: cefTRIAXone sodium 1 GM in 0.9 % Sodium Chloride 50 ML IV (02:59)
[2022-01-07] MEDS: Morphine Sulfate 2 MG/ML CARTRIDGE IVPUSH ×4 (03:53→21:20)
[2022-01-07 07:06] LABS: MANUAL DIFF FLAG NO
[2022-01-07 07:15] LABS: Basophils Absolute Auto 0.1 X10*3/uL (0.0-0.2); Basophils Percent Auto 0.5 % (0-2); Eosinophils Absolute Auto 0.3 X10*3/uL (0.0-0.4); Eosinophils Percent Auto 2.4 % (0-4); Hemoglobin 10.6 g/dl (12.0-16.0); Imm Gran Abs Auto 0.05 X10*3/uL (0.00-0.03); Imm Gran Pct Auto 0.4 % (0.0-0.4); Lymphocytes Absolute Auto 3.8 X10*3/uL (1.2-4.9); Lymphocytes Percent Auto 29.7 % (20-40); Mean Corpuscular HGB Conc 33.1 g/dl (31.0-35.0); Mean Corpuscular Hemoglobin 26.6 pg (27.0-33.0); Mean Corpuscular Volume 80.2 fL (80.0-98.0); Mean Platelet Volume 9.9 fL (9.4-12.3); Monocytes Absolute Auto 0.8 X10*3/uL (0.1-1.2); Monocytes Percent Auto 6.4 % (2-11); Neutrophils Absolute Auto 7.8 x10*3/uL (2.0-8.3); Neutrophils Percent Auto 60.6 % (45-73); Platelet Count 418 X10*3/uL (160-400); Red Blood Count 3.99 X10*6/uL (4.20-5.50); Red Cell Distribution Width 12.5 % (11.0-16.0); White Blood Count 12.8 X10*3/uL (4.8-10.8)
[2022-01-07 07:19] LABS: Glucose, Whole Blood 107 mg/dL (60-115)
[2022-01-07 08:02] LABS: Anion Gap 17 (12-20); Blood Urea Nitrogen 22 mg/dL (9-16); Carbon Dioxide 23 mmol/L (22-29); Chloride 102 mmol/L (96-108); Creatinine Clr Calc Pharmacy 76.8; Estimated Glomerular Filt Rate > 60; Glucose Random 109 mg/dL (60-115); Potassium 3.6 mmol/L (3.3-5.1); Sodium 138 mmol/L (135-145)
[2022-01-07 08:18] LABS: C Reactive Protein 2.44 mg/dL (< or = 0.50)
--- NOTE | 2022-01-07 08:49 | P.PNIM_ITS ---
Subjective Subjective Date of Service: 01/07/22 Interval History: RUQ/R flank pain improved. tolerating diet without N/V. not lightheaded Review of Systems Review of Systems: Yes all other systems are reviewed and are negative Physical Exam Vital Signs: Vital Signs: Last Vital Signs Temp 97.7 F 01/07/22 07:40 Pulse 98 01/07/22 07:49 Resp 18 01/07/22 07:40 BP 109/65 01/07/22 07:49 Pulse Ox 97 01/07/22 07:40 O2 Del Method 01/07/22 07:40 BMI result Body Mass Index 24.0 Gen: in no acute distress HEENT: sclera anicteric, moist mucus membranes Neck: supple Lungs: clear to auscultation bilaterally Heart: regular rate and rhythm, no murmurs Abd: soft, RUQ and R flank tenderness, non-distended, no rebound/guarding Ext: no edema Skin: warm/well-perfused Neuro: alert and oriented x3, no focal findings Psych: appropriate affect Objective Data Active Medications Acetaminophen (Acetaminophen 325 Mg Tablet) 650 mg PO Q6H PRN PRN Reason: Pain, Mild (Pain Scale 1-3) Brimonidine Tartrate (Brimonidine Tartrate 0.2% Oph 5 Ml Bottle) 1 drop EYE- LEFT TID [facility] Last Admin: 01/06/22 21:17 Dose: 1 drop Documented By: PATRICIA Dextrose (Dextrose 50 % 25 Gm/50 Ml Syringe) 25 gm IVPUSH Q15M PRN; Protocol PRN Reason: per Hypoglycemia Standing Ord. Docusate Sodium (Docusate Sodium 100 Mg Capsule) 100 mg PO DAILY PRN PRN Reason: Constipation Enoxaparin Sodium (Enoxaparin Sodium 40 Mg/0.4 Ml Syringe) 40 mg SUBCUT Q24H [facility] Last Admin: 01/06/22 06:13 Dose: 40 mg Documented By: ERMIAS Glucose (Glucose Gel 15 Gm Gel..Gram.) 15 gm PO Q15M PRN; Protocol PRN Reason: per Hypoglycemia Standing Ord. Ceftriaxone Sodium 1 gm/ (Sodium Chloride) 50 mls @ 100 mls/hr IV Q24H [facility] Last Infusion: 01/07/22 03:27 Dose: 0 mls/hr Documented By: PATRICIA Sodium Chloride (Ns) 1,000 mls @ 100 mls/hr IVCONT .Q10H [facility] Last Admin: 01/06/22 21:27 Dose: 100 mls/hr Documented By: PATRICIA Insulin Glargine (Insulin Glargine,Hum.Rec.Anlog 100 Unit/Ml 10 Ml Vial) 25 unit SUBCUT DAILY [facility] Last Admin: 01/06/22 10:46 Dose: Not Given Documented By: NELLY Non-Admin Reason: No Insulin Coverage Insulin Human Lispro (Insulin Lispro 100 Unit/Ml 3 Ml Vial) 0 unit SUBCUT QIDACHS [facility]; Protocol Last Admin: 01/07/22 07:27 Dose: Not Given Documented By: SIMEON Non-Admin Reason: No Insulin Coverage Ketorolac Tromethamine (Ketorolac Tromethamine 0.5% Op 5 Ml Drops) 1 drop EYE- BOTH TID [facility] Last Admin: 01/06/22 21:16 Dose: 1 drop Documented By: PATRICIA Morphine Sulfate (Morphine Sulfate 2 Mg/Ml Cartridge) 2 mg IVPUSH Q4H PRN; Protocol PRN Reason: sev pain Last Admin: 01/07/22 03:53 Dose: 2 mg Documented By: PATRICIA Pt Own Med ( Latanoprostene Bunod [Vyzulta] 0.024 % Drops) 1 drop EYE-BOTH BEDTIME [facility] Last Admin: 01/06/22 21:17 Dose: 1 drop Documented By: PATRICIA Ondansetron HCl (Ondansetron Hcl 4 Mg/2 Ml Vial) 4 mg IVPUSH Q8H PRN PRN Reason: Nausea and Vomiting Oxycodone HCl (Oxycodone Hcl Immed Release 5 Mg Tablet) 5 mg PO Q6H PRN PRN Reason: mod pain Pharmacy Consult (Consult Rx Perform Med Rec) 1 each MISCELLANE ONCE PRN PRN Reason: Consult order Prednisolone Acetate (Prednisolone Acetate 1 % Oph Susp 5 Ml Drpbtl) 1 drop EYE-BOTH BID [facility] Last Admin: 01/06/22 21:16 Dose: 1 drop Documented By: PATRICIA Labs CBC & Chem 7: 01/07/22 06:16 01/07/22 06:16 Labs: Laboratory Results - last 24 hr 01/06/22 01/06/22 01/06/22 06:11 11:01 15:39 MCV MCH MCHC RDW Plt Count MPV Immature Gran % (Auto) Neut % (Auto) Lymph % (Auto) [place] % (Auto) Eos % (Auto) Baso % (Auto) Lymph # (Auto) [place] # (Auto) Eos # (Auto) Baso # (Auto) Abs Immat Gran (auto) Absolute Neuts (auto) Absolute Nucleated RBC Nucleated RBC % (auto) Anion Gap Estim Creat Clear Calc Estimated GFR POC Glucose 129 H 135 H Random Glucose Calcium Total Bilirubin 0.4 Direct Bilirubin < 0.2 AST 16 ALT 7 Alkaline Phosphatase 83 D C-Reactive Protein Total Protein 6.4 L Albumin 3.6 01/06/22 01/07/22 01/07/22 19:44 06:16 06:16 MCV 80.2 MCH 26.6 L MCHC 33.1 RDW 12.5 Plt Count 418 H MPV 9.9 Immature Gran % (Auto) 0.4 Neut % (Auto) 60.6 Lymph % (Auto) 29.7 [place] % (Auto) 6.4 Eos % (Auto) 2.4 Baso % (Auto) 0.5 Lymph # (Auto) 3.8 [place] # (Auto) 0.8 Eos # (Auto) 0.3 Baso # (Auto) 0.1 Abs Immat Gran (auto) 0.05 H Absolute Neuts (auto) 7.8 Absolute Nucleated RBC 0.000 Nucleated RBC % (auto) 0.0 Anion Gap 17 Estim Creat Clear Calc 76.8 Estimated GFR > 60 POC Glucose 190 H Random Glucose 109 Calcium 9.0 Total Bilirubin Direct Bilirubin AST ALT Alkaline Phosphatase C-Reactive Protein 2.44 H Total Protein Albumin 01/07/22 07:11 MCV MCH MCHC RDW Plt Count MPV Immature Gran % (Auto) Neut % (Auto) Lymph % (Auto) [place] % (Auto) Eos % (Auto) Baso % (Auto) Lymph # (Auto) [place] # (Auto) Eos # (Auto) Baso # (Auto) Abs Immat Gran (auto) Absolute Neuts (auto) Absolute Nucleated RBC Nucleated RBC % (auto) Anion Gap Estim Creat Clear Calc Estimated GFR POC Glucose 107 Random Glucose Calcium Total Bilirubin Direct Bilirubin AST ALT Alkaline Phosphatase C-Reactive Protein Total Protein Albumin Microbiology Microbiology Results: Microbiology 01/05/22 02:15 Blood Culture - Preliminary Blood - Venous No growth after 48 hours. 01/05/22 02:11 Blood Culture - Preliminary Blood - Venous No growth after 48 hours. 01/05/22 00:00 Urine Culture - Preliminary Urine clean catch - Urine [place] Culture in progress. Assessment and Plan (1) Syncope: Status: Acute Plan d#3 46yo F with DM2 presenting after brief syncopal episodes preceded by nausea and poor PO intake, found to have orthostatic hypotension # syncope - likely orthostatic hypotension from dehydration- continue IV fluids- recheck orthostatics today # UTI suspect pyelonephritis - BCx NGTD, follow UCx results, continue ceftriaxone d#3. WBCs improving # DM2 - basal/bolus insulin # VTE ppx: LMWH In my clinical judgment, the patient requires continued hospitalization for the following reasons: IV ABX, IV fluids Quality Stroke Does the patient have a stroke diagnosis?: No VTE Prior VTE?: No VTE Risk Level:: Medical - moderate - high VTE Device Contraindication: Treatment Not Indicated VTE Drug Contraindication: N/A - Med Ordered
[2022-01-07] MEDS: Enoxaparin Sodium 40 MG/0.4 ML SYRINGE SUBCUT (09:36)
[2022-01-07] MEDS: Brimonidine Tartrate 0.2% Oph 5 ML BOTTLE 1 DROP EYE-LEFT ×3 (09:37→21:08)
[2022-01-07] MEDS: Ketorolac Tromethamine 0.5% Op 5 ML DROPS 1 DROP EYE-BOTH ×3 (09:37→21:06)
[2022-01-07] MEDS: prednisoLONE Acetate 1 % Oph Susp 5 ML DRPBTL 1 DROP EYE-BOTH ×2 (09:37→21:09)
[2022-01-07] MEDS: Insulin Glargine,Hum.rec.anlog 100 UNIT/ML 10 ML VIAL 25 UNIT SUBCUT (09:37)
[2022-01-07 11:24] LABS: Glucose, Whole Blood 137 mg/dL (60-115)
[2022-01-07] MEDS: 0.9 % Sodium Chloride 1,905.09 ML 1905.09 ML IV (12:23)
[2022-01-07] MEDS: 0.9 % Sodium Chloride 1,000 ML 100 ML IVCONT ×2 (12:24→18:08)
[2022-01-07 16:14] LABS: Glucose, Whole Blood 126 mg/dL (60-115)
[2022-01-07 20:21] LABS: Glucose, Whole Blood 160 mg/dL (60-115)
[2022-01-07] MEDS: Insulin Lispro 100 UNIT/ML 3 ML VIAL SUBCUT (21:08)
[2022-01-08] VITALS (8 sets, daily range): BP systolic 77–181; BP diastolic 50–90; PULSE 82–96; RESP 16–20; TEMP 35.8–37; O2SAT 96–100
[2022-01-08] MEDS: cefTRIAXone sodium 1 GM in 0.9 % Sodium Chloride 50 ML IV (02:08)
[2022-01-08] MEDS: Morphine Sulfate 2 MG/ML CARTRIDGE IVPUSH ×3 (02:09→21:18)
[2022-01-08 07:21] LABS: Glucose, Whole Blood 69 mg/dL (60-115)
[2022-01-08 07:26] LABS: Hematocrit 30.4 % (37.0-47.0); Mean Corpuscular HGB Conc 32.9 g/dl (31.0-35.0); Mean Corpuscular Hemoglobin 26.6 pg (27.0-33.0); Mean Corpuscular Volume 80.9 fL (80.0-98.0); Mean Platelet Volume 10.1 fL (9.4-12.3); Platelet Count 384 X10*3/uL (160-400); Red Blood Count 3.76 X10*6/uL (4.20-5.50); Red Cell Distribution Width 12.6 % (11.0-16.0); White Blood Count 12.2 X10*3/uL (4.8-10.8)
[2022-01-08 07:47] LABS: Anion Gap 14 (12-20); Blood Urea Nitrogen 15 mg/dL (9-16); Calcium 8.6 mg/dL (8.4-10.2); Carbon Dioxide 23 mmol/L (22-29); Chloride 107 mmol/L (96-108); Creatinine Clr Calc Pharmacy 84.2; Estimated Glomerular Filt Rate > 60; Glucose Random 70 mg/dL (60-115); Potassium 3.6 mmol/L (3.3-5.1); Sodium 140 mmol/L (135-145)
[2022-01-08 08:17] LABS: Glucose, Whole Blood 164 mg/dL (60-115)
[2022-01-08] MEDS: 0.9 % Sodium Chloride 1,000 ML 100 ML IVCONT ×2 (09:26→16:33)
[2022-01-08] MEDS: Enoxaparin Sodium 40 MG/0.4 ML SYRINGE SUBCUT (09:26)
[2022-01-08] MEDS: prednisoLONE Acetate 1 % Oph Susp 5 ML DRPBTL 1 DROP EYE-BOTH ×2 (09:27→21:18)
[2022-01-08] MEDS: Ketorolac Tromethamine 0.5% Op 5 ML DROPS 1 DROP EYE-BOTH ×3 (09:27→21:18)
[2022-01-08] MEDS: Brimonidine Tartrate 0.2% Oph 5 ML BOTTLE 1 DROP EYE-LEFT ×3 (09:27→21:19)
[2022-01-08 10:51] LABS: Cortisol Random 6.9 ug/dL
--- NOTE | 2022-01-08 10:57 | P.PNIM_ITS ---
Subjective Subjective Date of Service: 01/08/22 Interval History: Remains orthostatic we symptomatic. No overt syncope Review of Systems Denies chest pain Denies shortness of breath Denies nausea vomiting diarrhea Physical Exam Vital Signs: Vital Signs: Last Vital Signs Temp 98.1 F 01/08/22 07:27 Pulse 95 01/08/22 08:26 Resp 20 01/08/22 07:27 BP 77/50 L 01/08/22 08:26 Pulse Ox 100 01/08/22 07:27 O2 Del Method 01/08/22 07:27 FiO2 99 01/07/22 19:52 BMI result Body Mass Index 24.0 Const: Other: Awake alert no acute distress. Visibly orthostatic Resp: Other: Clear to auscultation bilaterally no rales rhonchi or wheezes Cardio: Other: No S4; positive S1-S2; no S3 murmurs or gallops GI: Other: Soft nontender nondistended normoactive bowel sounds Neuro: Other: Cranial nerves 2-12 grossly intact as tested. Motor is 5/5 all extremities. Sensation is intact Extrem: Other: No edema bilaterally Objective Data Active Medications Acetaminophen (Acetaminophen 325 Mg Tablet) 650 mg PO Q6H PRN PRN Reason: Pain, Mild (Pain Scale 1-3) Brimonidine Tartrate (Brimonidine Tartrate 0.2% Oph 5 Ml Bottle) 1 drop EYE- LEFT TID [facility] Last Admin: 01/08/22 09:27 Dose: 1 drop Documented By: YELENA Dextrose (Dextrose 50 % 25 Gm/50 Ml Syringe) 25 gm IVPUSH Q15M PRN; Protocol PRN Reason: per Hypoglycemia Standing Ord. Docusate Sodium (Docusate Sodium 100 Mg Capsule) 100 mg PO DAILY PRN PRN Reason: Constipation Enoxaparin Sodium (Enoxaparin Sodium 40 Mg/0.4 Ml Syringe) 40 mg SUBCUT Q24H [facility] Last Admin: 01/08/22 09:26 Dose: 40 mg Documented By: YELENA Glucose (Glucose Gel 15 Gm Gel..Gram.) 15 gm PO Q15M PRN; Protocol PRN Reason: per Hypoglycemia Standing Ord. Ceftriaxone Sodium 1 gm/ (Sodium Chloride) 50 mls @ 100 mls/hr IV Q24H [facility] Last Infusion: 01/08/22 02:44 Dose: 0 mls/hr Documented By: TRAN Sodium Chloride (Ns) 1,000 mls @ 100 mls/hr IVCONT .Q10H [facility] Last Admin: 01/08/22 09:26 Dose: 100 mls/hr Documented By: YELENA Insulin Glargine (Insulin Glargine,Hum.Rec.Anlog 100 Unit/Ml 10 Ml Vial) 25 unit SUBCUT DAILY [facility] Last Admin: 01/08/22 09:23 Dose: Not Given Documented By: YELENA Non-Admin Reason: No Insulin Coverage Insulin Human Lispro (Insulin Lispro 100 Unit/Ml 3 Ml Vial) 0 unit SUBCUT QIDACHS [facility]; Protocol Last Admin: 01/08/22 08:14 Dose: Not Given Documented By: YELENA Non-Admin Reason: No Insulin Coverage Ketorolac Tromethamine (Ketorolac Tromethamine 0.5% Op 5 Ml Drops) 1 drop EYE-BOTH TID [facility] Last Admin: 01/08/22 09:27 Dose: 1 drop Documented By: YELENA Morphine Sulfate (Morphine Sulfate 2 Mg/Ml Cartridge) 2 mg IVPUSH Q4H PRN; Protocol PRN Reason: sev pain Last Admin: 01/08/22 02:09 Dose: 2 mg Documented By: TRAN Pt Own Med ( Latanoprostene Bunod [Vyzulta] 0.024 % Drops) 1 drop EYE-BOTH BEDTIME [facility] Last Admin: 01/07/22 21:05 Dose: 1 drop Documented By: DILLON Ondansetron HCl (Ondansetron Hcl 4 Mg/2 Ml Vial) 4 mg IVPUSH Q8H PRN PRN Reason: Nausea and Vomiting Oxycodone HCl (Oxycodone Hcl Immed Release 5 Mg Tablet) 5 mg PO Q6H PRN PRN Reason: mod pain Pharmacy Consult (Consult Rx Perform Med Rec) 1 each MISCELLANE ONCE PRN PRN Reason: Consult order Prednisolone Acetate (Prednisolone Acetate 1 % Oph Susp 5 Ml Drpbtl) 1 drop EYE-BOTH BID [facility] Last Admin: 01/08/22 09:27 Dose: 1 drop Documented By: YELENA Labs CBC & Chem 7: 01/08/22 06:35 01/08/22 06:35 Labs: Laboratory Results - last 24 hr 10/01/07/22 01/07/22 11:21 16:09 20:16 MCV MCH MCHC RDW Plt Count MPV Absolute Nucleated RBC Nucleated RBC % (auto) Anion Gap Estim Creat Clear Calc Estimated GFR POC Glucose 137 H 126 H 160 H Random Glucose Calcium Random Cortisol 01/08/22 01/08/22 01/08/22 06:35 06:35 06:35 MCV 80.9 MCH 26.6 L MCHC 32.9 RDW 12.6 Plt Count 384 MPV 10.1 Absolute Nucleated RBC 0.000 Nucleated RBC % (auto) 0.0 Anion Gap 14 Estim Creat Clear Calc 84.2 Estimated GFR > 60 POC Glucose Random Glucose 70 Calcium 8.6 Random Cortisol 6.9 01/08/22 01/08/22 07:11 08:14 MCV MCH MCHC RDW Plt Count MPV Absolute Nucleated RBC Nucleated RBC % (auto) Anion Gap Estim Creat Clear Calc Estimated GFR POC Glucose 69 164 H Random Glucose Calcium Random Cortisol Microbiology Microbiology Results: Microbiology 01/05/22 00:00 Urine Culture - Final Urine clean catch - Urine [place] Assessment and Plan (1) Syncope: Status: Acute (2) Diabetes: Status: Acute (3) UTI (urinary tract infection): Status: Acute Plan 46yo F with DM2 presenting after brief syncopal episodes preceded by nausea and poor PO intake, found to have orthostatic hypotension 1.Syncope - likely orthostatic hypotension from dehydration - continue IV fluids- recheck orthostatics today 2.UTI (>100k mixed rob -ceftriaxone (4). -trend WBCs 3.DM2 - basal/bolus insulin -adjust as indicated # VTE ppx: LMWH Patient requires continued hospitalization for the following reasons: IV ABX, IV fluids Quality Stroke Does the patient have a stroke diagnosis?: No VTE Prior VTE?: No VTE Risk Level:: Medical - moderate - high VTE Device Contraindication: Treatment Not Indicated VTE Drug Contraindication: N/A - Med Ordered
[2022-01-08 11:47] LABS: Glucose, Whole Blood 124 mg/dL (60-115)
[2022-01-08 16:16] LABS: Glucose, Whole Blood 174 mg/dL (60-115)
[2022-01-08] MEDS: Insulin Lispro 100 UNIT/ML 3 ML VIAL SUBCUT ×2 (16:27→21:17)
[2022-01-08 20:04] LABS: Glucose, Whole Blood 192 mg/dL (60-115)
[2022-01-09] VITALS: BP 136/70; PULSE 95; RESP 20; TEMP 36.6; O2SAT 99
[2022-01-09] MEDS: Morphine Sulfate 2 MG/ML CARTRIDGE IVPUSH (02:49)
[2022-01-09] MEDS: cefTRIAXone sodium 1 GM in 0.9 % Sodium Chloride 50 ML IV (02:49)
[2022-01-09 03:47] VITALS: BP 104/61; PULSE 84; RESP 16; TEMP 36.2; O2SAT 97
[2022-01-09 06:17] LABS: MANUAL DIFF FLAG NO
[2022-01-09 06:24] LABS: Basophils Percent Auto 0.4 % (0-2); Eosinophils Absolute Auto 0.3 X10*3/uL (0.0-0.4); Hematocrit 27.1 % (37.0-47.0); Imm Gran Abs Auto 0.04 X10*3/uL (0.00-0.03); Imm Gran Pct Auto 0.4 % (0.0-0.4); Lymphocytes Absolute Auto 3.8 X10*3/uL (1.2-4.9); Lymphocytes Percent Auto 33.6 % (20-40); Mean Corpuscular HGB Conc 33.2 g/dl (31.0-35.0); Mean Corpuscular Hemoglobin 26.7 pg (27.0-33.0); Mean Corpuscular Volume 80.4 fL (80.0-98.0); Mean Platelet Volume 9.8 fL (9.4-12.3); Monocytes Absolute Auto 0.9 X10*3/uL (0.1-1.2); Monocytes Percent Auto 7.5 % (2-11); Neutrophils Absolute Auto 6.3 x10*3/uL (2.0-8.3); Neutrophils Percent Auto 55.1 % (45-73); Platelet Count 344 X10*3/uL (160-400); Red Blood Count 3.37 X10*6/uL (4.20-5.50); Red Cell Distribution Width 12.7 % (11.0-16.0); White Blood Count 11.4 X10*3/uL (4.8-10.8)
[2022-01-09] MEDS: Enoxaparin Sodium 40 MG/0.4 ML SYRINGE SUBCUT (06:25)
[2022-01-09 06:43] LABS: Alanine Aminotransferase < 6 U/L (0-31); Albumin Level 3.1 g/dL (3.5-5.0); Alkaline Phosphatase 62 U/L (39-117); Anion Gap 14 (12-20); Aspartate Amino Transferase 9 U/L (5-31); Bilirubin Total 0.2 mg/dL (0.0-1.0); Blood Urea Nitrogen 9 mg/dL (9-16); Calcium 8.5 mg/dL (8.4-10.2); Carbon Dioxide 23 mmol/L (22-29); Chloride 106 mmol/L (96-108); Creatinine Clr Calc Pharmacy 78.8; Estimated Glomerular Filt Rate > 60; Glucose Fasting 208 mg/dL (60-99); Potassium 3.6 mmol/L (3.3-5.1); Sodium 139 mmol/L (135-145); Total Protein 5.3 g/dL (6.5-8.0)
[2022-01-09 07:53] VITALS: BP 111/75; PULSE 83; RESP 20; TEMP 36.6; O2SAT 97
[2022-01-09 08:10] LABS: Glucose, Whole Blood 148 mg/dL (60-115)
[2022-01-09] MEDS: Ketorolac Tromethamine 0.5% Op 5 ML DROPS 1 DROP EYE-BOTH (08:50)
[2022-01-09] MEDS: Brimonidine Tartrate 0.2% Oph 5 ML BOTTLE 1 DROP EYE-LEFT (08:50)
[2022-01-09] MEDS: prednisoLONE Acetate 1 % Oph Susp 5 ML DRPBTL 1 DROP EYE-BOTH (08:50)
[2022-01-09] MEDS: Insulin Glargine,Hum.rec.anlog 100 UNIT/ML 10 ML VIAL 25 UNIT SUBCUT (08:57)
[2022-01-09 11:21] LABS: Glucose, Whole Blood 167 mg/dL (60-115)
--- NOTE | 2022-01-09 11:29 | PM.DS ---
DS: Providers Provider Date of Service: 01/09/22 Date of admission: 01/05/22 06:15 Date of discharge: 01/09/22 Primary care physician: Eden Jernigan MD DS: Diagnosis Discharge Diagnosis (1) UTI (urinary tract infection): Status: Acute (2) Syncope: Status: Acute (3) Diabetes: Status: Acute DS: Summary Hospital Course Hospital Course: 46-year-old female with past medical history of diabetes, GERD, presents to the hospital with complaints of falling and losing consciousness x3.? Patient reports that she has had severe nausea since Sunday, therefore she has not been eating or drinking much, she got up to go use the bathroom today, had subsequent falls every time she tried to get up, she had loss of consciousness for few seconds supported by her daughter.? She does report that she hit her face falling down crack in her tooth.? She denies any headache at this time, reports feeling significantly dizzy prior to falling, denies any chest pain, no palpitations, reports known recent fever or chills, denies any diarrhea or constipation, no urinary symptoms. On arrival to the ED patient hemodynamically stable, when orthostatic vitals were attempted P patient became significantly dizzy, and hypotensive therefore vitals were aborted, Labs are significant for WBC count of 18.4, otherwise unremarkable, urine negative for any acute infection Head CT, cervical spine CT, chest CT negative Hospital course Patient admitted to telemetry. Monitor failed to demonstrate any dysrhythmia a.m. is a could be associated with her syncope. She was volume repleted with IV fluids and treated with ceftriaxone empirically. Over the course of 48 hours patient improved to the point she was ambulatory without issue. Given the response to ceftriaxone and despite the negative culture will send patient home to complete a course of Ceftin. She will follow-up with PCP in 1-2 weeks Time Spent with Patient Time attestation: Total time spent providing and/or coordinating discharge services: Discharge coordination time: Greater than 30 minutes Quality: Safe Use of Opioids Does Pt have an Active Cancer Diagnosis on the Problem List?: No Quality: Stroke Does the patient have a stroke diagnosis?: No Physical Exam Vital Signs: Vital Signs: Last Vital Signs Temp 97.8 F 01/09/22 07:53 Pulse 83 01/09/22 07:53 Resp 20 01/09/22 07:53 BP 111/75 01/09/22 07:53 Pulse Ox 97 01/09/22 07:53 O2 Del Method 01/09/22 07:53 FiO2 99 01/07/22 19:52 BMI result Body Mass Index 24.0 Const: Other: Awake alert no acute distress. Visibly orthostatic Resp: Other: Clear to auscultation bilaterally no rales rhonchi or wheezes Cardio: Other: No S4; positive S1-S2; no S3 murmurs or gallops GI: Other: Soft nontender nondistended normoactive bowel sounds Neuro: Other: Cranial nerves 2-12 grossly intact as tested. Motor is 5/5 all extremities. Sensation is intact Extrem: Other: No edema bilaterally DS: Data Data Completed and Pending Labs on day of discharge: Laboratory Results - last 24 hr 01/08/22 01/08/22 01/08/22 11:43 16:06 19:44 WBC RBC Hgb Hct MCV MCH MCHC RDW Plt Count MPV Immature Gran % (Auto) Neut % (Auto) Lymph % (Auto) [place] % (Auto) Eos % (Auto) Baso % (Auto) Lymph # (Auto) [place] # (Auto) Eos # (Auto) Baso # (Auto) Abs Immat Gran (auto) Absolute Neuts (auto) Absolute Nucleated RBC Nucleated RBC % (auto) Sodium Potassium Chloride Carbon Dioxide Anion Gap BUN Creatinine Estim Creat Clear Calc Estimated GFR POC Glucose 124 H 174 H 192 H Fasting Glucose Calcium Total Bilirubin AST ALT Alkaline Phosphatase Total Protein Albumin 01/09/22 01/09/22 01/09/22 05:49 05:49 07:41 WBC 11.4 H RBC 3.37 L Hgb 9.0 L Hct 27.1 L MCV 80.4 MCH 26.7 L MCHC 33.2 RDW 12.7 Plt Count 344 MPV 9.8 Immature Gran % (Auto) 0.4 Neut % (Auto) 55.1 Lymph % (Auto) 33.6 [place] % (Auto) 7.5 Eos % (Auto) 3.0 Baso % (Auto) 0.4 Lymph # (Auto) 3.8 [place] # (Auto) 0.9 Eos # (Auto) 0.3 Baso # (Auto) 0.0 Abs Immat Gran (auto) 0.04 H Absolute Neuts (auto) 6.3 Absolute Nucleated RBC 0.000 Nucleated RBC % (auto) 0.0 Sodium 139 Potassium 3.6 Chloride 106 Carbon Dioxide 23 Anion Gap 14 BUN 9 Creatinine 0.77 Estim Creat Clear Calc 78.8 Estimated GFR > 60 POC Glucose 148 H Fasting Glucose 208 H Calcium 8.5 Total Bilirubin 0.2 AST 9 D ALT < 6 Alkaline Phosphatase 62 D Total Protein 5.3 L Albumin 3.1 L 01/09/22 10:52 WBC RBC Hgb Hct MCV MCH MCHC RDW Plt Count MPV Immature Gran % (Auto) Neut % (Auto) Lymph % (Auto) [place] % (Auto) Eos % (Auto) Baso % (Auto) Lymph # (Auto) [place] # (Auto) Eos # (Auto) Baso # (Auto) Abs Immat Gran (auto) Absolute Neuts (auto) Absolute Nucleated RBC Nucleated RBC % (auto) Sodium Potassium Chloride Carbon Dioxide Anion Gap BUN Creatinine Estim Creat Clear Calc Estimated GFR POC Glucose 167 H Fasting Glucose Calcium Total Bilirubin AST ALT Alkaline Phosphatase Total Protein Albumin Preliminary micro results at discharge 01/05/22 02:15 Blood Culture - Preliminary Blood - Venous No growth after 48 hours. 01/05/22 02:11 Blood Culture - Preliminary Blood - Venous No growth after 48 hours. Discharge Plan Discharge Anticipated Discharge Date/Time: 01/09/22 11:48 Patient Disposition: Home, Self-Care Discharge Diagnosis: syncope Referrals: Eden Weinberg MD [Primary Care Provider] - 1 Week Discharge Medications: New cefuroxime axetil 500 mg tablet 500 mg PO BID 10 Days Qty: 20 0RF Continued insulin glargine [Lantus U-100 Insulin] 100 unit/mL Solution 50 unit SUBCUT BID ketorolac 0.5 % drops 1 drp ophthalmic (eye) TID prednisolone acetate 1 % drops,suspension 1 drp ophthalmic (eye) BID brimonidine 0.2 % drops 1 drp ophthalmic-Left TID Vyzulta 0.024 % drops 1 drp ophthalmic (eye) BEDTIME Discharge Orders: Discharge Order (Routine); Ordered 01/09/22 Ordered By: Jaswant Anand Diet: Advance to usual diet Activity on Discharge: As tolerated Stand Alone Forms: Patient Portal Discharge page Care Plan Goals: Complete course of Ceftin 500 mg twice a day for 10 days Health Concerns: Follow-up with your PCP within 2 weeks Plan of Treatment: Drink plenty of fluids Assessment: See discharge summary
[2022-01-09 11:39] VITALS: BP 155/81; BP 162/91; PULSE 86; PULSE 89; RESP 18; TEMP 36.6; O2SAT 99
[2022-01-09 11:40] VITALS: BP 135/73; PULSE 90
--- NOTE | 2022-01-09 11:57 | MHC.CM.PN ---
Patient has been medically cleared for dc to home today, self care.
== END 2022-01-09 12:15 | disposition home or self-care (01) | DRG 204 ==
LOC: HO.ED 01-05 03:19 → HO.EDOVER 01-05 06:21 → HO.IMC 01-05 13:46
PROVIDERS: Family Medicine; Admitting Provider Internal Medicine; Emergency Provider Internal Medicine; PCP Internal Medicine; Visit Provider Hospitalist
DX: I95.1 Orthostatic hypotension (principal); N12 Tubulo-interstitial nephritis, not specified as acute or chronic; E11.9 Type 2 diabetes mellitus without complications; E86.0 Dehydration; K21.9 Gastro-esophageal reflux disease without esophagitis; J45.909 Unspecified asthma, uncomplicated; Z20.822 Contact with and (suspected) exposure to COVID-19; Z23 Encounter for immunization; Z79.4 Long term (current) use of insulin; Z79.899 Other long term (current) drug therapy
CPT/HCPCS: 36415; 70450; 71260; 72125; 76700; 76705; 76775; 80048; 80053; 80076; 81001; 82533; 82947; 83605; 83735; 84484; 85025; 85027; 85610; 86140; 87040; 87086; 87635; 90686; 93005; 97162; 99285; J0696; J1650; J2270; Q9967